=== PATIENT | female | born 1995 | race African-American/Black ===

== ENCOUNTER 2020-05-11 10:04 | Observation (INO) | payer BC, SELFPAY ==
[2020-05-11 10:41] VITALS: BP 110/62; PULSE 86
--- NOTE | 2020-05-15 07:42 | PM.OBTRLD ---
OB - Triage/Final Diagnosis Visit Information Reason for evaluation: decreased movement
== END 2020-05-11 11:00 | disposition home or self-care (01) ==
PROVIDERS: Admitting Provider Obstetrics & Gynecology Gynecology; Visit Provider Obstetrics & Gynecology Gynecology
DX: O36.8120 Decreased fetal movements, second trimester, not applicable or unspecified (principal); Z3A.23 23 weeks gestation of pregnancy
CPT/HCPCS: 59025; G0378; G0379

== ENCOUNTER 2020-06-11 17:30 | Observation (INO) | payer BC, SELFPAY ==
--- NOTE | 2020-06-11 17:28 | PC.NURSE ---
Taken directly to OB for eval. Report to
--- NOTE | 2020-06-11 17:30 | OBADM ---
This patient, Arielle Barlow, admitted to the OB room OB Post 112 for observation. Patient/family oriented to hospital policies and general routines including ID bracelet, bed and alarms, visiting hours, pain management, procedures, bathroom and other care routines, personal items, smoking policy, room service/diet, and visiting hours. Patient/Family are encouraged to report perceived risks to care and to ask questions if they do not understand what they are told or what they should do.
[2020-06-11 17:54] VITALS: BP 115/57; PULSE 87
[2020-06-11 18:00] VITALS: BP 109/63; PULSE 92
[2020-06-11 18:15] VITALS: BP 99/61; PULSE 93
[2020-06-11 19:32] VITALS: BMI 45.3
[2020-06-11 19:35] VITALS: BP 115/57; PULSE 95
--- NOTE | 2020-06-14 11:48 | PM.OBTRLD ---
OB - Triage/Final Diagnosis Final Diagnosis (1) Decreased movement: Code(s): O36.8190 - Decreased movements, unspecified trimester, not applicable or unspecified Status: Acute
== END 2020-06-11 19:05 | disposition home or self-care (01) ==
PROVIDERS: Admitting Provider Obstetrics & Gynecology; PCP Obstetrics & Gynecology; Visit Provider Obstetrics & Gynecology Gynecology
DX: O36.8130 Decreased fetal movements, third trimester, not applicable or unspecified (principal); Z3A.28 28 weeks gestation of pregnancy
CPT/HCPCS: 59025; G0378; G0379

== ENCOUNTER 2020-07-18 09:45 | Observation (INO) | payer BC, SELFPAY ==
[2020-07-18 09:56] VITALS: BP 118/59; PULSE 106
[2020-07-18 10:01] VITALS: BP 112/63; PULSE 105
[2020-07-18 10:16] VITALS: BP 109/63; PULSE 99
[2020-07-18 10:31] VITALS: BP 94/64; PULSE 99
[2020-07-18 10:46] VITALS: BP 109/67; PULSE 94; PULSE 96
--- NOTE | 2020-07-22 11:51 | PM.OBTRLD ---
OB - Triage/Final Diagnosis Final Diagnosis (1) Decreased movement: Code(s): O36.8190 - Decreased movements, unspecified trimester, not applicable or unspecified Status: Acute
== END 2020-07-18 11:17 | disposition home or self-care (01) ==
PROVIDERS: Admitting Provider Obstetrics & Gynecology; PCP Obstetrics & Gynecology; Visit Provider Obstetrics & Gynecology
DX: O36.8130 Decreased fetal movements, third trimester, not applicable or unspecified (principal); Z3A.34 34 weeks gestation of pregnancy
CPT/HCPCS: 59025; G0378; G0379

== ENCOUNTER 2020-07-21 19:57 | Observation (INO) | payer BC, SELFPAY ==
[2020-07-21 20:15] VITALS: TEMP 36.4
[2020-07-21 20:40] VITALS: BMI 46.9
--- NOTE | 2020-07-21 20:46 | OBADM ---
This patient, Arielle Barlow, admitted to the OB room OB Post 117 for observation. Patient/family oriented to hospital policies and general routines including ID bracelet, bed and alarms, visiting hours, pain management, procedures, bathroom and other care routines, personal items, smoking policy, room service/diet, and visiting hours. Patient/Family are encouraged to report perceived risks to care and to ask questions if they do not understand what they are told or what they should do.
--- NOTE | 2020-07-24 16:28 | PM.OBTRLD ---
OB - Triage/Final Diagnosis Final Diagnosis (1) Decreased movement: Code(s): O36.8190 - Decreased movements, unspecified trimester, not applicable or unspecified Status: Acute
== END 2020-07-21 21:15 | disposition home or self-care (01) ==
PROVIDERS: Admitting Provider Obstetrics & Gynecology; PCP Obstetrics & Gynecology; Visit Provider Obstetrics & Gynecology
DX: O36.8190 Decreased fetal movements, unspecified trimester, not applicable or unspecified (principal); Z3A.00 Weeks of gestation of pregnancy not specified
CPT/HCPCS: G0378; G0379

== ENCOUNTER 2020-08-05 12:01 | Outpatient (RCR) | payer BC, SELFPAY ==
[2020-07-30 13:03] VITALS: BP 111/59; PULSE 109
--- NOTE | ~2020-08-05 | US_ITS ---
EXAMINATION: US OB limited w BPP DATE: 08/05/2020 13:12 INDICATION: Decreased movements. Assess amniotic fluid index. TECHNIQUE: Real-time pelvic ultrasound was performed. The interpreting radiologist was not present fo r the study. COMPARISON: None. FINDINGS: There is a single living fetus in vertex presentation. The placenta is fundal. heart rate is 1 39 beats per minute (bpm). Amniotic fluid index measures 7.4 cm which is between 2 and 3 standard dev iations below the mean (2.5th%-5%: 7.0-7.9 cm at 35 weeks estimated gestational age). Biophysical profile performed by the technologist: breathing (30 sec sustained breathing in 30 minutes): 2 out of 2 movement (3 gross body movements in 30 minutes): 2 out of 2 tone (one episode of ohaecsm-lddcniuou-vpmeprf limb movement): 2 out of 2 Amniotic fluid pocket (2 cm): 2 out of 2 Total score: 8 out of 8 IMPRESSION: 1. Single living fetus in vertex presentation with heart rate of 139 bpm. 2. Biophysical profile 8 out of 8. 3. Oligohydramnios with amniotic fluid index of 7.4 cm which is between 2 and 3 standard deviations b elow the mean at 35 weeks estimated gestational age. Correlate clinically for leaking fluids. Reviewed, dictated and finalized at location A. IMPRESSION: 1. Single living fetus in vertex presentation with heart rate of 139 bpm. 2. Biophysical profile 8 out of 8. 3. Oligohydramnios with amniotic fluid index of 7.4 cm which is between 2 and 3 standard deviations below the mean at 35 weeks estimated gestational age. Celi elate clinically for leaking fluids.
== END 2020-08-14 07:45 | disposition home or self-care (01) ==
LOC: ANHOBOP 12:01
PROVIDERS: Visit Provider Obstetrics & Gynecology
DX: O36.8130 Decreased fetal movements, third trimester, not applicable or unspecified (principal); O41.03X0 Oligohydramnios, third trimester, not applicable or unspecified; Z3A.35 35 weeks gestation of pregnancy
CPT/HCPCS: 59025; 76815; 76819

== ENCOUNTER 2020-08-09 18:43 | Observation (INO) | payer BC, SELFPAY ==
[2020-08-09 19:30] VITALS: BMI 47.2
--- NOTE | 2020-08-09 20:15 | OBADM ---
This patient, Arielle Barlow, admitted to the OB room for observation. Patient/family oriented to hospital policies and general routines including ID bracelet, bed and alarms, visiting hours, pain management, procedures, bathroom and other care routines, personal items, smoking policy, room service/diet, and visiting hours. Patient/Family are encouraged to report perceived risks to care and to ask questions if they do not understand what they are told or what they should do.
--- NOTE | 2020-11-13 14:40 | PM.OBTRLD ---
OB - Triage/Final Diagnosis Visit Information Reason for evaluation: threatened labor Comments/Additional reasons for admission: I have assessed the risk for this patient, Arielle Barlow, and determined that she would benefit from observation care.
== END 2020-08-09 20:12 ==
LOC: ANHOBOP 11-13 06:20 → ANHLDR 11-13 08:52
PROVIDERS: Admitting Provider Obstetrics & Gynecology; Visit Provider Obstetrics & Gynecology
DX: O47.03 False labor before 37 completed weeks of gestation, third trimester (principal); Z3A.36 36 weeks gestation of pregnancy
CPT/HCPCS: G0378; G0379

== ENCOUNTER 2020-08-12 12:22 | Inpatient (IN) | payer BC, SELFPAY ==
[2020-08-12] VITALS (11 sets, daily range): BP systolic 100–137; BP diastolic 45–87; PULSE 82–109; RESP 18–20; TEMP 36.5–36.7; BMI 47.3
--- NOTE | 2020-08-12 12:22 | LDADM ---
This patient, Arielle Barlow, was admitted to Labor/Delivery/Recovery 109 on 08/12/20 at 12:22. Plans for labor, pain management and were discussed with patient. Patient/family oriented to hospital policies and general routines including ID bracelet, bed and alarms, visiting hours, pain management, procedures, bathroom and other care routines, personal items, smoking policy, room service/diet and guest tray routines, infant security routines, and visiting hours. Patient/Family are encouraged to report perceived risks to care and to ask questions if they do not understand what they are told or what they should do. See OBIX for further documentation.
[2020-08-12 14:46] LABS: Basophils Percent Auto 0.2 % (0.2-1.2); Eosinophils Absolute Auto 0.1 K/mm3 (0-0.3); Hematocrit 34.8 % (37.0-47.0); Hemoglobin 11.3 g/dL (12.0-15.0); Immature Granulocyte Absolute 0.17 K/mm3 (0.00-0.031); Immature Granulocyte Percent A 1.6 % (0-0.5); Lymphocytes Absolute Auto 1.48 K/mm3 (0.9-3.2); Lymphocytes Percent Auto 14.2 % (18.3-44.2); Mean Corpuscular HGB Conc 32.5 g/dl (32-36); Mean Corpuscular Hemoglobin 30.8 pg (26-34); Mean Corpuscular Volume 94.8 fl (80-100); Mean Platelet Volume 9.6 fl (7.4-10.4); Monocytes Absolute Auto 0.7 K/mm3 (0.1-0.6); Monocytes Percent Auto 6.5 % (2.6-8.5); Neutrophils Percent Auto 76.5 % (45.5-73.1); Platelet Count Result 352 k/mm3 (150-375); Red Blood Count 3.67 M/mm3 (4.2-5.4); Red Cell Distribution Width 12.3 % (11.5-14.5); White Blood Count 10.4 K/mm3 (4.5-10.0)
[2020-08-12] MEDS: DINOPROSTONE 10 MG VAG INSERT VAGINAL (14:51)
--- NOTE | 2020-08-12 17:34 | WPDANESEPP ---
Anes - Eval Pre Procedure Procedure: Labor epidural Date/Time: 08/12/20 17:34 Surgeon: Mulu Vaca Preop Diagnosis: pain during labor Pre Op Diagnosis: INDUCTION Patient Data Age: 24 Gender: F Height: 1.63 m Weight: 125.2 kg Last Vital Signs Pulse 103 H 08/12/20 16:31 BP 137/87 08/12/20 16:31 Allergies Allergy/AdvReac Type Severity Reaction Status Date / Time cephalexin Allergy Unknown hives Verified 08/12/20 14:50 Home Medications Medication Instructions Recorded Confirmed Type [id number] fum-folic ac-om3 1 pkg PO DAILY 08/12/20 08/12/20 History [Daily ] Laboratory Tests 08/12/20 08/12/20 08/12/20 14:39 14:39 14:39 WBC 10.4 K/mm3 H K/mm3 (4.5-10.0) RBC 3.67 M/mm3 L M/mm3 (4.2-5.4) Hgb 11.3 g/dL L g/dL (12.0-15.0) Hct 34.8 % L % (37.0-47.0) MCV 94.8 fl fl (80-100) MCH 30.8 pg pg (26-34) MCHC 32.5 g/dl g/dl (32-36) RDW 12.3 % % (11.5-14.5) Plt Count 352 k/mm3 k/mm3 (150-375) MPV 9.6 fl fl (7.4-10.4) Immature Gran % (Auto) 1.6 % H % (0-0.5) Neut % (Auto) 76.5 % H % (45.5-73.1) Lymph % (Auto) 14.2 % L % (18.3-44.2) [place] % (Auto) 6.5 % % (2.6-8.5) Eos % (Auto) 1.0 % % (0-4.4) Baso % (Auto) 0.2 % % (0.2-1.2) Lymph # (Auto) 1.48 K/mm3 K/mm3 (0.9-3.2) [place] # (Auto) 0.7 K/mm3 H K/mm3 (0.1-0.6) Eos # (Auto) 0.1 K/mm3 K/mm3 (0-0.3) Baso # (Auto) 0.0 K/mm3 K/mm3 (0.0-0.1) Abs Immat Gran (auto) 0.17 K/mm3 H K/mm3 (0.00-0.031) Absolute Neuts (auto) 8.0 K/mm3 H K/mm3 (1.3-6.7) Absolute Nucleated RBC 0.0 K/mm3 K/mm3 (0.0-0.012) Nucleated RBC % 0.0 % % (0.0-0.2) RPR Pending Blood Type O Positive Antibody Screen Negative Patient hx anesthesia problems: none Family hx anesthesia problems: none PMFSH Past Medical History Medical History (Updated 08/12/20 @ 17:35 by Vicky Riley CRNA) Decreased movement Morbid obesity with BMI of 45.0-49.9, adult Social History Social History Smoking status: Never smoker Substance use: former Gender identity (if verbalized by the patient): Female Spiritual care concerns: No Exam Day of Procedure 08/12/20 17:34
--- NOTE | 2020-08-12 19:33 | PM.IMHP ---
H&P: HPI History of Present Illness Date/Time: 08/12/20 19:33 Chief complaint: INDUCTION Narrative: Arielle Barlow is a 24 yo @ 36.6wks who presented for routine testing due to obesity and h/o decreased movement. Last week, she was noted to have low-normal fluid at 7, ROM was ruled out. Today for ANT, she was noted to have recurrent late decels with episodes of minimal variability; with resuscitation, accels and variability were noted. is complicated by: - Obesity - Late MANUEL @ 34.6wks (but had regular care before (moved to [place])) - MJ use - heart decels - Low normal amniotic fluid Review of Systems Constitutional: Constitutional: Denies chills and Denies fever(s) Eyes: Eyes: Denies blurry vision Cardiovascular: Cardiovascular: Denies chest pain and Denies rapid heart rate Respiratory: Respiratory: Denies cough and Denies dyspnea Gastrointestinal: Gastrointestinal: Denies abdominal pain, Denies nausea and Denies vomiting Genitourinary: Genitourinary: Denies vaginal discharge Musculoskeletal: Musculoskeletal: Reports back pain Neurologic: Denies dizziness and Denies headache(s) Psychiatric: Psychiatric: Denies anxiety and Denies depression [facility] Past Medical History Medical History Decreased movement Morbid obesity with BMI of 45.0-49.9, adult Social History Social History Smoking status: Never smoker Substance use: former Gender identity (if verbalized by the patient): Female Spiritual care concerns: No Meds Home Medications and Allergies Home Medications Medication Instructions Recorded Confirmed Type -qdgh fum-folic ac-om3 1 pkg PO DAILY 08/12/20 08/12/20 History [Daily ] Allergies Allergy/AdvReac Type Severity Reaction Status Date / Time cephalexin Allergy Unknown hives Verified 08/12/20 14:50 Vital Signs Vital Signs - 24 hr 08/12/20 15:14 08/12/20 15:16 08/12/20 15:31 Temperature Pulse Rate 105 H 95 94 Blood Pressure 127/68 100/64 109/45 L 08/12/20 15:46 08/12/20 16:00 08/12/20 16:01 Temperature 36.6 C Pulse Rate 95 98 Blood Pressure 101/54 L 119/74 08/12/20 16:16 08/12/20 16:31 Temperature Pulse Rate 109 H 103 H Blood Pressure 121/70 137/87 Exam Const: General: cooperative, comfortable and no acute distress Nutritional Appearance: obese Resp: Effort & Inspection: normal respiratory effort and able to speak in complete sentences Cardio: Rate: regular rate GI: GI Palp: No abdominal tenderness : Other: FHT's: 145/ mod kristy/ + accels/ occasional late decel ---> now resolved with intrauterine resuscitation - cat 2 TOCO: irregular ctx's q6min Cervix: 1/thick/high Membranes: intact Position: cephalic Skin: General skin exam: normal color Neuro: General: patient oriented x3 Extrem: General: normal to inspection Psych: Appearance: grossly normal Attitude: cooperative H&P: Results Labs Labs: Short CBC 08/12/20 Range/Units 14:39 WBC 10.4 H (4.5-10.0) K/mm3 Hgb 11.3 L (12.0-15.0) g/dL Hct 34.8 L (37.0-47.0) % Plt Count 352 (150-375) k/mm3 Assessment and Plan Assessment and plan (1) heart deceleration: Status: Acute (2) IUP (intrauterine ), incidental: Code(s): Z33.1 - state, incidental Status: Acute (3) Morbid obesity with BMI of 45.0-49.9, adult: Code(s): E66.01 - Morbid (severe) obesity due to excess calories; Z68.42 - Body mass index [BMI] 45.0-49.9, adult Status: Acute Additional Plan - Admit to L&D for IOL - Cervidil overnight - Plan for AROM + pitocin in AM - Continuous monitoring - Anesthesia consult PRN pain
--- NOTE | 2020-08-12 19:44 | WPDHPUPDATE1 ---
History and Physical Update Update Date/Time: 08/12/20 19:44 History and Physical has been reviewed, including an updated exam of the patient. There are NO changes in the patient's condition. Risks, benefits, and alternatives have been discussed and questions answered. Patient agrees to proceed with procedure.
[2020-08-13] VITALS (264 sets, daily range): BP systolic 54–149; BP diastolic 17–118; PULSE 65–164; RESP 16–20; TEMP 35.8–37.2; O2SAT 36–100
[2020-08-13] MEDS: OXYTOCIN 30 UNITS/NS 500 ML 30 UNITS/500 ML BAG IV CONT (03:13)
[2020-08-13] MEDS: LACTATED RINGERS 1,000 ML 125 ML IV CONT ×3 (03:13→11:48)
[2020-08-13] MEDS: fentaNYL CITRATE INJ (*CRX) 100 MCG/2 ML VIAL IV PUSH ×2 (05:09→07:09)
[2020-08-13 06:57] LABS: Rapid Plasma Reagin Non-Reactive (NonReactive)
--- NOTE | 2020-08-13 08:00 | PM.OBPNLAB ---
Pain Control Date/time seen: 08/13/20 12:10 Pain control: tolerating well Pelvic Exam Dilation (cm): 2 Effacement (%): 80 station: -2 Amniotic membrane status: Ruptured (AROM, clear 0745) Contractions Monitor mode: Internal Contraction frequency: 3 Contraction pattern: Regular Status status: Category l Assessment and Plan Pitocin rate (mU/min): 6 Assessment: induction ongoing Plan: continuous present management
--- NOTE | 2020-08-13 21:07 | PM.OBPRVD ---
OB - Delivery Note Procedure Route of delivery: Laceration Description: Perineal - 2nd Degree Delivery repair: chromic Specimen: Yes Estimated blood loss (mL): 300 Anesthesia type: Epidural Disposition: floor Narrative: Patient was prepped and draped in usual manner for this procedure. Maternal expulsive efforts readily delivered vertex which with further effort the rest of the baby was delivered as well. Cord was clamped and cut and placenta delivered spontaneously. Uterus was well contracted cervix vagina and vulva were inspected with second-degree laceration noted. This was approximated using 2 0 chromic in a running interlocking manner to approximate the vaginal tissue as well as the deep tissue and the subcuticular layer to approximate the skin edges. At this point the procedure was complete and the immediate postoperative condition of mother and baby were both excellent. [place] Baby Weeks of gestation at delivery: 37 gender: Male Weight (pounds): 6 Weight (ounces): 13 score one minute: 8 score five minutes: 9
[2020-08-13] MEDS: OXYTOCIN 30 UNITS/NS 500 ML 30 UNITS/500 ML BAG 125 UNITS IV CONT ×2 (21:35→21:51)
[2020-08-13] MEDS: IBUPROFEN 600 MG TABLET PO (22:48)
[2020-08-13] MEDS: WITCH HAZEL 40 PADS 1 PAD TOPICAL (22:49)
[2020-08-13] MEDS: BENZOCAINE 20% AER SPR (*SP) 56 GM CAN 1 SPRAY TOPICAL (22:49)
[2020-08-14 05:45] LABS: Hematocrit 28.2 % (37.0-47.0)
[2020-08-14 07:40] VITALS: BP 106/57; PULSE 94; RESP 18; TEMP 36.6; O2SAT 96
--- NOTE | 2020-08-14 07:45 | PC.NURSE ---
Mother called out for assist with feeding . Consulted with patient, mother reports infant is sleepy and is having difficulties with latching. is inconsistent with eagerness and latching, some feedings infant will be easily awoken and latch other feedings mother struggles to get to latch. Mother has been given a nipple shield for feedings. Discussed nipple shield use and how this may assist with latch/infant feeding. Instructions given on application and cleaning of shield. Discussed nipple shield precautions and possible complications. Patient able to return demonstration on proper application of shield. Discussed the need to initiate pumping if infant continues to nurse with the shield. Patient verbalizes understanding. Reviewed feeding cues, frequencies, duration of feedings, feeding elimination flow sheet, and signs of adequate intake. Demonstrated stimulation techniques to wake infant for feeding. Assisted with to breast. Reviewed positioning/alignment in cross cradle, holding breast in U hold and guided asymmetrical latch on. Discussed the rational for each. was able to latch correctly. Infant held nipple in with no effective suckling noted. Discussed feeding options at this time. has not nursed for 6 hours. Parents would like infant to be supplemented and mother will initiate pumping. Feeding plan will be to attempt infant to breast each feeding, if does not effectively feed, mother will supplement 15mls then pump both breasts for 10-15 minutes.
--- NOTE | 2020-08-14 08:30 | PC.NURSE ---
Breast pump provided due to ineffective feeding/nipple shield use. Instructions given on breast pump care and usage, pumping schedule, nipple care, and collection and storage of breast milk. Encouraged [id number], breast massage and manual expression to stimulate supply. Assessed patient for correct flange size, placement and draw. Patient verbalizes and demonstrates understanding of instructions.
--- NOTE | 2020-08-14 09:07 | P.DS_ITS ---
DS: Admitting Diagnosis Admitting Diagnosis Admitting Diagnosis: INDUCTION OB - DS: Summary OB Procedures : None OB Procedures Intrapartum: Spontaneous Vag Delivery OB Procedures: : None Time Spent with Patient Time attestation: Total time spent providing and/or coordinating discharge services: DS: Data Data Completed and Pending Pending studies at discharge: Pending at discharge 08/13/20 20:55 Surgical [PTH] Routine Labs on day of discharge: Labs from last 24 hours 08/14/20 04:03 Hgb 9.0 L Hct 28.2 L Discharge Plan Discharge Discharging Clinician: Frederic Cardona Anticipated Discharge Date/Time: 08/15/20 09:07 Patient Disposition: Home, Self-Care Activity: as tolerated Diet: as tolerated Patient Instructions: Antibiotic Form Stand Alone Forms: General Discharge Information Follow-up/Referrals: Frederic Cardona MD [Physician] - 3 Weeks Discharge Medications: Continued Daily [id number] mg-mcg-mg Combo Pack 1 pkg PO DAILY RF: 0 Date of admission: 08/12/20 12:22 Primary Care Provider: PHYSICIAN,LEAD CLINICAL RESEARCH COORDINATOR Admitting Provider: Mulu Vaca Attending physician on admission: Mulu Vaca Condition: Stable
[2020-08-14] MEDS: POLYSACCHARIDE IRON COMPLEX 150 MG CAPSULE PO ×2 (09:57→16:00)
[2020-08-14] MEDS: MULTIVIT/MIN/PREN/FOL AC/IRON TABLET 1 TAB PO (09:57)
[2020-08-14] MEDS: IBUPROFEN 600 MG TABLET PO ×2 (09:57→16:00)
[2020-08-14] MEDS: DOCUSATE SODIUM 100 MG CAPSULE PO ×2 (09:57→16:00)
--- NOTE | 2020-08-14 11:24 | WPDANLDPN2 ---
Anes-Prog Note L&D Date/Time: 08/14/20 11:24 Comfortable throughout: labor and delivery Neuraxial method: epidural Epidural/Spinal procedure site: clean & non-tender Neuro status: Neuro function grossly intact. Cardiovascular status: normal Respiratory status: normal Airway patency: baseline Mental status: baseline Post-Op hydration status: normal Vital Signs: Last Vital Signs Temp 97.9 F 08/14/20 07:40 Pulse 94 08/14/20 07:40 Resp 18 08/14/20 07:40 BP 106/57 L 08/14/20 07:40 Pulse Ox 96 08/14/20 07:40 Pain score (VAS): 10/26 I/O: Intake & Output 08/13/20 08/14/20 08/14/20 23:59 07:59 15:59 Intake Total 900 Output Total 291 Balance 609 Patient feedback: Patient satisfied with anesthetic care.
--- NOTE | 2020-08-14 12:30 | PC.NURSE ---
Mother called out for assist with feeding infant. Reviewed infant feeding cues, frequencies, duration of feedings, feeding elimination flow sheet, and signs of adequate intake. Demonstrated stimulation techniques to wake for feeding. Assisted with to breast. Reviewed positioning/alignment in cross cradle, holding breast in U hold and guided asymmetrical latch on. Discussed the rational for each. was able to latch correctly. Infant held nipple in with no effective suckling noted. Attempt for 15-20 minutes, infant will then supplement.
[2020-08-14 20:00] VITALS: BP 118/78; PULSE 108; RESP 18; TEMP 36.7; O2SAT 96
[2020-08-15 07:45] VITALS: BP 116/69; PULSE 87; RESP 18; TEMP 37.2; O2SAT 100
--- NOTE | 2020-08-15 09:20 | PC.NURSE ---
Consult with pt., mother states infant has been more awake and eagerly feeding the last several feedings, continuing to use the nipple shield. Discussed weaning techniques for shield. Reviewed ICP suggestions of continued supplementation until her milk is in, due to near term status. Parents are willing to supplement as needed. Observed mother is able to independently latch infant with appropriate positioning/alignment using nipple shield. She denies any nipple discomfort, is feeding as required and waking to feed if needed. has had at least 8 feedings in the past 24 hours followed with supplementation for most. Infant is currently meeting outcomes for weight, output, jaundice and feeding frequencies. Mother states she feels confident to continue current feeding plan at home. Reviewed transition to breast milk, signs of adequate intake, and engorgement/relief. Instructed to call ICP if intake/output less than required. Discussed when to increase supplementation and when to decrease/discontinue supplementation. Advised not to discontinue supplement until seen by her ICP. Reviewed regular medications mother is taking. Information provided per Jaqui. Reviewed community resources on the [facility] website and in the Mom/Baby guide. Information on outpatient services provided. Mother has no further questions at this time.
[2020-08-15] MEDS: POLYSACCHARIDE IRON COMPLEX 150 MG CAPSULE PO (10:23)
[2020-08-15] MEDS: DOCUSATE SODIUM 100 MG CAPSULE PO (10:23)
[2020-08-15] MEDS: MULTIVIT/MIN/PREN/FOL AC/IRON TABLET 1 TAB PO (10:23)
--- NOTE | 2020-08-15 11:40 | PC.NURSE ---
Patient instructed to view the discharge video Mother & Baby Care, The First Two Weeks . Patient was given the opportunity and encouraged to ask questions. Patient verbalized understanding of information shared and has been given the mother/baby guide for home reference.
--- NOTE | 2020-08-18 16:42 | PM.OBDSVD ---
DS: Admitting Diagnosis Admitting Diagnosis Admitting Diagnosis: INDUCTION OB - DS: Summary OB Procedures : None OB Procedures Intrapartum: Spontaneous Vag Delivery OB Procedures: : None Time Spent with Patient Time attestation: Total time spent providing and/or coordinating discharge services: DS: Data Data Completed and Pending Completed studies during hospitalization: Pending at discharge 08/13/20 20:55 Surgical [PTH] Routine Discharge Plan Discharge Discharging Clinician: Frederic Cardona Anticipated Discharge Date/Time: 08/15/20 09:07 Patient Disposition: Home, Self-Care Activity: as tolerated Diet: as tolerated Discharge Instructions: Education: Mom and Baby Guide and Preeclampsia Handout Given to: Mother Follow-Up: Call your delivering provider's office for an appointment to be seen in: 3 weeks Mom and baby should come to the [facility] for the follow-up appointment. Appointment Date/Time: August 16, 2020 at 8:00 am What to expect at your follow-up visit: Physical Assessment Call [phone] if you are unable to keep your appointment time. BREAST CARE: * Wear a snug supportive bra. * For engorgement discomfort: Breast Feeding: * Apply warm moist washcloths * Express milk as needed to relieve engorgement * Wear loose clothing * For sore nipples: * Identify correct latch-on * Apply warm moist washcloths before and after nursing * Air dry nipples after nursing * May apply Lansinoh cream to nipples EPISIOTOMY/PERINEAL CARE: * Until bleeding stops, use your dari bottle after urinating * Change your pad frequently throughout the day * You may take sitz baths several times a day (fill your bathtub with warm water and soak for 20 minutes.) Do NOT bathe in the water * No tub baths until seen by your physician - You may shower ACTIVITY: * Rest as much as possible. * Do not exercise or lift anything heavier than your baby (such as laundry or other children.) * Avoid stairs or driving as much as possible. * Do not put anything into the vagina. No douching, tampons, or sexual activity until seen by physician. NOTIFY PHYSICIAN IF YOU HAVE ANY QUESTIONS OR IF ANY OF THE FOLLOWING SYMPTOMS OCCUR: * If your episiotomy or stitches becomes red, swollen, or more painful than what you have experienced in the hospital. * If your vaginal bleeding becomes foul smelling. * If your vaginal bleeding becomes more heavy than a period or if your bleeding changes from pink to bright red. However, you may pass an occasional walnut-sized clot once or twice for the first week . * If you experience a sharp, shooting pain in you calves. * If you discover a hard, reddened area on your breast or if you experience flu-like symptoms. DIET: * Eat regular, well-balanced meals. * Drink plenty of fluids daily. If , drink to thirst. Stand Alone Forms: General Discharge Information Follow-up/Referrals: Frederic Cardona MD [Physician] - 3 Weeks Discharge Medications: Continued Daily [id number] mg-mcg-mg Combo Pack 1 pkg PO DAILY RF: 0 Date of admission: 08/12/20 12:22 Primary Care Provider: PHYSICIAN,PROFESSOR OF PRACTICE Admitting Provider: Mulu Vaca Attending physician on admission: Frederic Cardona Condition: Stable
== END 2020-08-15 12:15 | disposition home or self-care (01) | DRG 560 ==
LOC: ANHLDR 14:10 → ANHOB2 08-14 09:08 → ANHLDR 08-18 11:17 → ANHOB2 08-18 11:17
PROVIDERS: Admitting Provider Obstetrics & Gynecology; Visit Provider Obstetrics & Gynecology
DX: O36.8330 Maternal care for abnormalities of the fetal heart rate or rhythm, third trimester, not applicable or unspecified (principal); Z37.0 Single live birth; Z3A.37 37 weeks gestation of pregnancy; O99.214 Obesity complicating childbirth; E66.01 Morbid (severe) obesity due to excess calories; O70.1 Second degree perineal laceration during delivery; Z23 Encounter for immunization
CPT/HCPCS: 36415; 85014; 85018; 85025; 86592; 86850; 86900; 86901; 88307; 90471; 90653; A9270; G0008; J2590; J2795; J3010; J7120

== ENCOUNTER 2020-09-25 15:19 | Emergency (ER) | payer BC, SELFPAY ==
[2020-09-25 15:24] VITALS: BP 133/64; PULSE 79; RESP 18; TEMP 36.4; O2SAT 99
--- NOTE | 2020-09-25 16:15 | ED.GENADULT ---
HPI - General Adult General Chief complaint: Unspecified Stated complaint: sore throat Time Seen by Provider: 09/25/20 15:35 Source: patient Mode of arrival: ambulatory Limitations: no limitations History of Present Illness HPI narrative: Patient is a 24-year-old female who presents to emergency department for evaluation of sore throat congestion for the last day noting that someone at her work was positive for strep patient denies other URI symptoms specifically no chest pain shortness of breath vomiting diarrhea patient has not taken anything for her symptoms presents in no distress afebrile Related Data Home Medications Medication Instructions Recorded Confirmed Daily 1 pkg PO DAILY 08/12/20 08/12/20 Allergies Allergy/AdvReac Type Severity Reaction Status Date / Time cephalexin Allergy Unknown hives Verified 08/12/20 14:50 Review of Systems Review of Systems: All systems reviewed & are unremarkable except as noted in HPI and below PMFSH Past Medical History Medical History Decreased movement Morbid obesity with BMI of 45.0-49.9, adult Social History Social History Smoking status: Never smoker Substance use: former Gender identity (if verbalized by the patient): Female Spiritual care concerns: No Exam Narrative: Exam Narrative: GENERAL: Well-appearing, obese, and in no acute distress. HEAD: Normocephalic, atraumatic. EYES: PERRLA and EOMI. ENT: Nares clear, no rhinorrhea or epistaxis. Mucous membranes moist. Oropharynx without tonsillar hypertrophy exudate or other lesions. CHEST: Clear to auscultation. No respiratory distress. No wheezes rales or rhonchi HEART: Regular rate and rhythm. No murmur heard. SKIN: Warm, dry, no rash. NEURO: No focal deficits. Alert and oriented x3. PSYCH: Normal mood and affect. Course Course Emergency Course: Patient in the room with negative strep pharyngitis will be swabbed for COVID-19 was made aware that she will have to get the results through the on-call primary care she does not have a existing primary care patient notes that she will facilitate doing this also advised to self quarantine until she has received her results and given reasons to return Vital Signs Vital signs: Vital Signs Temperature 97.6 F 09/25/20 15:24 Pulse Rate 79 09/25/20 15:24 Respiratory Rate 18 09/25/20 15:24 Blood Pressure 133/64 09/25/20 15:24 Pulse Oximetry 99 09/25/20 15:24 Temperature 97.6 F 09/25/20 15:24 Pulse Rate 79 09/25/20 15:24 Respiratory Rate 18 09/25/20 15:24 Blood Pressure 133/64 09/25/20 15:24 Pulse Oximetry 99 09/25/20 15:24 Medical Decision Making MDM Narrative Medical decision making narrative: Patient in the room afebrile nontoxic-appearing no distress felt appropriate for outpatient reevaluation Vital Signs Vital Signs: Vital Signs Temperature 97.6 F 09/25/20 15:24 Pulse Rate 79 09/25/20 15:24 Respiratory Rate 18 09/25/20 15:24 Blood Pressure 133/64 09/25/20 15:24 Pulse Oximetry 99 09/25/20 15:24 Temperature 97.6 F 09/25/20 15:24 Pulse Rate 79 09/25/20 15:24 Respiratory Rate 18 09/25/20 15:24 Blood Pressure 133/64 09/25/20 15:24 Pulse Oximetry 99 09/25/20 15:24 Lab Data Labs: Strep Screen Presumptive Negative *(Reference Range: Negative)* Discharge Plan Discharge Clinical Impression: Acute upper respiratory infection Patient Disposition: Home, Self-Care Condition: Stable Instructions: Antibiotic Form, Pharyngitis (ED) Additional Instructions: Follow up with your primary care provider within 2 to 3 days to set up for reevaluation and to obtain your COVID-19 results. Go to ER for shortness of breath, difficulty breathing, chest pain, fever/chills, weakness, nauseau/vomitting, e
[2020-09-26 12:14] LABS: SARS-CoV-2 RNA PCR Negative
== END 2020-09-25 17:19 | disposition home or self-care (01) ==
PROVIDERS: Emergency Medicine Emergency Medical Services; Emergency Provider Emergency Medicine
DX: J06.9 Acute upper respiratory infection, unspecified (principal); Z20.828 Contact with and (suspected) exposure to other viral communicable diseases; E66.01 Morbid (severe) obesity due to excess calories; Z68.42 Body mass index [BMI] 45.0-49.9, adult
CPT/HCPCS: 87081; 87635; 87880; 99283; C9803; U0003

== ENCOUNTER 2020-11-02 15:21 | Emergency (ER) | payer BC, SELFPAY ==
[2020-11-02 15:50] VITALS: BP 99/53; PULSE 98; RESP 20; TEMP 36.5; O2SAT 100
--- NOTE | 2020-11-02 16:05 | ED.SKABFB ---
HPI - Skin/Abscess/Foreign Bdy General Chief complaint: Wound/Laceration Stated complaint: L sided boil on gluteal region Time Seen by Provider: 11/02/20 15:55 Source: patient Mode of arrival: ambulatory Limitations: no limitations History of Present Illness HPI narrative: This is a 25-year-old female that presents the emergency department for abscess to the buttock. Reports she noted pain in the area over the last 5 days. Reports she noticed some redness and swelling of the area. Does report history of abscess in this area. Denies fever or drainage. Related Data Home Medications Medication Instructions Recorded Confirmed Daily 1 pkg PO DAILY 08/12/20 08/12/20 Allergies Allergy/AdvReac Type Severity Reaction Status Date / Time cephalexin Allergy Unknown hives Verified 11/02/20 16:21 Review of Systems Review of Systems: Narrative: CONSTITUTIONAL: Denies fever SKIN: Reports abscess All systems reviewed & are unremarkable except as noted in HPI and below PMFSH Past Medical History Medical History Decreased movement Morbid obesity with BMI of 45.0-49.9, adult Social History Social History Smoking status: Never smoker Substance use: former Gender identity (if verbalized by the patient): Female Spiritual care concerns: No Exam Narrative: Exam Narrative: GENERAL: Well-appearing, well-nourished, and in no acute distress. HEAD: Normocephalic, atraumatic. EYES: EOMI. BACK: 6cm area of erythema and induration present on the left upper buttock EXTREMITIES: Normal range of motion. No edema. SKIN: Warm, dry, no rash. NEURO: No focal deficits. Alert and oriented x3. PSYCH: Normal mood and affect Course Vital Signs Vital signs: Vital Signs Temperature 97.7 F 11/02/20 15:50 Pulse Rate 98 11/02/20 15:50 Respiratory Rate 11/02/20 15:50 Blood Pressure 99/53 L 11/02/20 15:50 Pulse Oximetry 100 11/02/20 15:50 Temperature 97.7 F 11/02/20 15:50 Pulse Rate 98 11/02/20 15:50 Respiratory Rate 11/02/20 15:50 Blood Pressure 99/53 L 11/02/20 15:50 Pulse Oximetry 100 11/02/20 15:50 Procedures Abscess I/D other: Date of Incision: 11/02/20 Time of Incision: 18:15 Local Anesthetic: lidocaine 1% and with epi Amount of anesthesia used (mL): 4 Technique: incised with #11 blade Irrigation: Yes Packing used?: iodoform I&D Results: Pus and Blood MDM - Skin/Abscess/Foreign Bdy MDM Narrative Medical decision making narrative: Patient presents the emergency department for pilonidal abscess. Successfully drained. Patient will be started on oral antibiotics. She is to follow-up with primary care doctor. She was given warnings to return to the ER Critical Care Time Critical Care Time Critical Care Time: No Discharge Plan Discharge Clinical Impression: Pilonidal abscess Patient Disposition: Home, Self-Care Condition: Stable Instructions: Antibiotic Form, Abscess (ED) Additional Instructions: Return if symptoms worsen or concerns: any increase in redness, swelling, pain, or fever over 101 Take antibiotics as directed. Clean wound with mild soapy water. Apply antibiotic ointment and clean dressing at least three times daily. Warm compresses 3 times a day for 30 minutes each Follow up with primary care in the next 2-3 days for re-evaluation and packing removal Prescriptions: New sulfamethoxazole-trimethoprim 800-160 mg tablet 1 tablet PO Q12H 10 Days Qty: 20 RF: 0 No Action Daily [phone] mg-mcg-mg Combo Pack 1 pkg PO DAILY RF: 0 Follow-up/Referrals: Jay Santa MD [Physician] - 3 Days PHYSICIAN,FIRE INFORMATION OFFICER [Primary Care Provider] -
[2020-11-02 18:35] VITALS: BP 115/60; PULSE 90; RESP 20; O2SAT 99
== END 2020-11-02 18:36 | disposition home or self-care (01) ==
PROVIDERS: Emergency Provider Emergency Medicine
DX: L05.01 Pilonidal cyst with abscess (principal); E66.01 Morbid (severe) obesity due to excess calories; Z68.36 Body mass index [BMI] 36.0-36.9, adult
CPT/HCPCS: 10061; 10080; 99283

== ENCOUNTER 2021-03-02 07:25 | Emergency (ER) | payer BC, SELFPAY ==
--- NOTE | ~2021-03-02 | XR_ITS ---
EXAMINATION: XR chest 1V portable EXAM DATE: 03/02/2021 08:17 INDICATION: Cough. TECHNIQUE: Portable AP frontal chest x-ray was obtained. There is no prior study for comparison. FINDINGS: The lungs are clear. There are no pleural effusions. The cardiomediastinal silhouette is within normal limits. There is no pneumothorax suspected. The bones and soft tissues are unremarkab le. IMPRESSION: No acute cardiopulmonary findings. Reviewed, dictated and finalized at location A.
[2021-03-02 07:29] VITALS: BP 131/75; PULSE 77; RESP 17; TEMP 36.6; O2SAT 100
--- NOTE | 2021-03-02 07:55 | ED.URI ---
HPI - URI/Sore Throat General Chief Complaint: Upper Respiratory Infection Stated Complaint: sore throat x2 days Time Seen by Provider: 03/02/21 07:35 Source: RN notes reviewed History of Present Illness HPI Narrative: Patient presents to emergency department from home for respiratory infection. Patient states symptoms began yesterday with a sore throat and today developed a cough productive of green sputum and ear pressure she denies any fevers or chills chest pain, shortness of breath abdominal pain nausea vomiting or any other symptoms. She denies any loss of taste or smell denies any known contact with Covid positive patient states she took no medication for the symptoms Related Data Allergies Allergy/AdvReac Type Severity Reaction Status Date / Time cephalexin Allergy Unknown hives Verified 03/02/21 07:33 Review of Systems Review of Systems: Narrative: Gen.: Denies fevers or chills Eyes: Denies eye pain or visual change ENT: See HPI Respiratory: Denies shortness of breath reports cough CV: Denies chest pain or palpitations GI: Denies abdominal pain nausea, emesis or diarrhea denies chance of Musculoskeletal: Denies back pain or muscle pain Neuro: Denies numbness, tingling, weakness or focal weakness Skin: Denies rash Except as documented, all other systems reviewed and negative PENDING SALE TO [facility] Past Medical History Medical History Decreased movement Morbid obesity with BMI of 45.0-49.9, adult Social History Social History (Updated 03/02/21 @ 07:56 by Olaf Bhatti DO) Smoking status: Current every day smoker Substance use: former Gender identity (if verbalized by the patient): Female Spiritual care concerns: No Exam Narrative: Exam Narrative: APPEARANCE: No acute distress, nontoxic, resting in bed EYES: EOMI HEENT: Normocephalic, atraumatic, TMs clear bilaterally nares patent oral mucosa moist, mild erythema of the posterior pharynx bilateral tonsils, no exudate, uvula midline no trismus tolerating own secretions RESPIRATORY: No respiratory distress Clear to auscultation bilaterally with no rhonchi wheezing or rales. CARDIOVASCULAR: Regular rate and rhythm without murmurs rubs or gallops. ABDOMINAL: Soft, nontender, nondistended, no rebound or guarding MUSCULOSKELETAl: Moves all extremities. NEURO: Awake and alert. Following commands, speech normal, no focal deficits SKIN:: Warm, dry. No rashes lesions or abrasions PSYCHIATRIC: Normal affect/mood, Course Course Emergency Course: Discussed with patient results of workup and diagnosis. Discussed need for follow-up with primary care, proper use of medication, and reasons to return to the emergency department. Patient understands and agrees to current treatment plan Vital Signs Vital signs: Vital Signs Temperature 97.9 F 03/02/21 07:29 Pulse Rate 77 03/02/21 07:29 Respiratory Rate 17 03/02/21 07:29 Blood Pressure 131/75 03/02/21 07:29 Pulse Oximetry 100 03/02/21 07:29 Temperature 97.9 F 03/02/21 07:29 Pulse Rate 77 03/02/21 07:29 Respiratory Rate 17 03/02/21 07:29 Blood Pressure 131/75 03/02/21 07:29 Pulse Oximetry 100 03/02/21 07:29 MDM - URI/Sore Throat MDM Narrative Medical decision making narrative: Patient with upper respiratory infection feel likely viral versus allergy with Covid pandemic will test for Covid self-isolation Lab Data Labs: Strep Screen Presumptive Negative *(Reference Range: Negative)* Imaging Data Radiologist's impression: ITS Impressions Chest X-Ray 03/02/21 08:40 IMPRESSION: No acute cardiopulmonary findings. Discharge Plan Discharge Clinical Impression: Acute upper respiratory infection Patient Disposition: Home, Self-Care Condition: Stable Instructions: Antibiotic Form, Upper Respiratory Infection (ED) Additional Inst
[2021-03-02] MEDS: IBUPROFEN 600 MG TABLET PO (08:02)
[2021-03-02 09:07] VITALS: BP 127/62; PULSE 78; RESP 19; O2SAT 100
[2021-03-02 18:48] LABS: SARS-CoV-2 RNA PCR Negative
== END 2021-03-02 09:10 | disposition home or self-care (01) ==
PROVIDERS: Emergency Provider Emergency Medicine
DX: J02.9 Acute pharyngitis, unspecified (principal); Z20.822 Contact with and (suspected) exposure to COVID-19; F17.200 Nicotine dependence, unspecified, uncomplicated; E66.01 Morbid (severe) obesity due to excess calories; Z68.42 Body mass index [BMI] 45.0-49.9, adult
CPT/HCPCS: 71045; 87081; 87880; 99283; A9270; C9803; U0003; U0005

== ENCOUNTER 2021-03-23 15:38 | Emergency (ER) | payer BC, SELFPAY ==
[2021-03-23 16:22] VITALS: BP 112/47; PULSE 91; RESP 20; TEMP 36.8; O2SAT 100
--- NOTE | 2021-03-23 18:59 | PC.NURSE ---
Had piloidal cyst drained 3 to 4 months ago, had medicated packed gauze, now past three days have been excruciating . States was going to have surgery for removal when she was in fifth grade but it popped before I could get to surgery . Reports chills yesterday, currently afebrile, took Motrin this am
--- NOTE | 2021-03-23 19:52 | ED.GENADULT ---
HPI - General Adult General Chief complaint: Unspecified Stated complaint: cyst on tailbone Time Seen by Provider: 03/23/21 19:03 Source: patient Mode of arrival: ambulatory Limitations: no limitations History of Present Illness HPI narrative: Patient is a 25-year-old female who presents complaining of abscess to buttocks. She reports a history of pilonidal abscesses in the past. She reports she has had a few in the past 3-4 years. She reports increasing pain over left buttocks for the past 2 to 3 days. Reports difficulty sitting related to pain. She denies taking OTC medications for pain. Denies drainage. She denies fever, chills, body aches or all other complaints at this time. MD complaint: Pilonidal abscess Related Data Allergies Allergy/AdvReac Type Severity Reaction Status Date / Time cephalexin Allergy Unknown hives Verified 03/23/21 19:02 Review of Systems Review of Systems: Narrative: CONSTITUTIONAL: Denies fever, chills, or sweats. EYES: Denies visual changes, redness, or discharge. ENT: Denies rhinorrhea, congestion, sore throat, or otalgia. CARDIOVASCULAR: Denies chest pain, palpitations, or edema. RESPIRATORY: Denies cough or dyspnea. GASTROINTESTINAL: Denies abdominal pain, nausea, vomiting, or diarrhea. GENITOURINARY: Denies dysuria or hematuria. SKIN: Reports abscess to buttocks MUSCULOSKELETAL: Denies back pain, joint pain, or myalgia. NEUROLOGIC: Denies headache, numbness, dizziness, or weakness. PSYCHIATRIC: Denies anxiety or depression. PMFSH Past Medical History Medical History Decreased movement Morbid obesity with BMI of 45.0-49.9, adult Social History Social History Smoking status: Current every day smoker Substance use: former Gender identity (if verbalized by the patient): Female Spiritual care concerns: No Comments At the time of signature, I have reviewed and agree with nursing past medical, surgical, social, and family history unless otherwise noted. Please see nursing chart for further information. There is no relevant family history pertinent to the presenting complaint. Exam Narrative: Exam Narrative: GENERAL: Well-appearing, well-nourished, and in no acute distress. HEAD: Normocephalic, atraumatic. EYES: EOMI. No redness or drainage. Conjunctiva are normal. ENT: Mucous membranes pink and moist. CHEST: No respiratory distress. HEART: Regular rate and rhythm. EXTREMITIES: Normal range of motion. No edema. SKIN: Patient has abscess to left intergluteal cleft. No drainage noted. Fluctuation and induration noted. NEURO: No focal deficits. Alert and oriented x3. Gait steady. PSYCH: Normal affect. No signs of depression or anxiety. Course Vital Signs Vital signs: Vital Signs Temperature 36.8 C 03/23/21 16:22 Pulse Rate 91 03/23/21 16:22 Respiratory Rate 20 03/23/21 16:22 Blood Pressure 112/47 L 03/23/21 16:22 Pulse Oximetry 100 03/23/21 16:22 Temperature 36.7 C 03/23/21 20:11 Pulse Rate 87 03/23/21 20:11 Respiratory Rate 16 03/23/21 20:11 Blood Pressure 114/68 03/23/21 20:11 Pulse Oximetry 100 03/23/21 20:11 Reviewed Procedures Abscess I/D other: Side (if applicable): left (Intergluteal cleft) Local Anesthetic: lidocaine 1% Amount of anesthesia used (mL): 5 Technique: incised with #11 blade Amount of fluid expressed (mL): 15 Irrigation: Yes Packing used?: plain I&D Results: Pus and Blood Medical Decision Making MDM Narrative Medical decision making narrative: Patient had an apparent pilonidal abscess. Incised and drained at this time. Surrounding cellulitis. Patient started on antibiotics. Patient given referral for follow-up with PCP and general surgery as she has talked to general surgeon in the past about pilonidal. Patient agrees with plan of care. Bhavesh
[2021-03-23 20:11] VITALS: BP 114/68; PULSE 87; RESP 16; TEMP 36.7; O2SAT 100
== END 2021-03-23 20:11 | disposition home or self-care (01) ==
PROVIDERS: Emergency Provider Nurse Practitioner
DX: L05.01 Pilonidal cyst with abscess (principal); E66.01 Morbid (severe) obesity due to excess calories; Z68.42 Body mass index [BMI] 45.0-49.9, adult
CPT/HCPCS: 10060; 10080; 99283

== ENCOUNTER 2021-10-29 13:18 | Emergency (ER) | payer OTHER, MEDICAID, SELFPAY ==
[2021-10-29 13:27] VITALS: BP 126/80; PULSE 105; RESP 14; TEMP 36.4; O2SAT 97
[2021-10-29 14:30] VITALS: BP 130/77; PULSE 78; RESP 19; O2SAT 98; O2SAT 99
--- NOTE | 2021-10-29 15:11 | ED.GENADULT ---
HPI - General Adult General Chief complaint: Upper Respiratory Infection Stated complaint: sore throat, fever, body aches Time Seen by Provider: 10/29/21 14:32 History of Present Illness HPI narrative: 25-year-old female presenting the emergency department for evaluation of sore throat, fever and body aches. Patient states she began developing symptoms on Tuesday. Patient is not vaccinated for COVID. Patient has not had recent COVID testing. Patient denies any chest pain or shortness of breath. Patient denies any associated nausea vomiting or diarrhea. Patient denies any abdominal pain or pain with urination. Related Data Allergies Allergy/AdvReac Type Severity Reaction Status Date / Time cephalexin Allergy Unknown hives Verified 03/23/21 19:02 Review of Systems Review of Systems: CONSTITUTIONAL: Reports fever chills and generalized body ache EYES: Denies visual changes, redness, or discharge. ENT: Reports otalgia and sore throat CARDIOVASCULAR: Denies chest pain, palpitations, or edema. RESPIRATORY: Denies cough or dyspnea. GASTROINTESTINAL: Denies abdominal pain, nausea, vomiting, or diarrhea. GENITOURINARY: Denies dysuria or hematuria. SKIN: Denies rash or itching. MUSCULOSKELETAL: Denies back pain, joint pain. Does have myalgia and body ache NEUROLOGIC: Intermittent headache PSYCHIATRIC: Denies anxiety or depression. [facility] Past Medical History Medical History Decreased movement Morbid obesity with BMI of 45.0-49.9, adult Social History Social History Smoking status: Current every day smoker Substance use: former Gender identity (if verbalized by the patient): Female Spiritual care concerns: No Exam Narrative: APPEARANCE: Well appearing, no pain in distress, well-nourished. HEAD: normocephalic, atraumatic. EYES: PERRLA/EOMI, conjunctivae clear. NOSE: Normal no drainage EARS:TMS clear with good light reflex. THROAT: Pharynx clear, no exudate. NECK: Supple. No adenopathy, no masses. RESPIRATORY: Airway patent, respirations nonlabored. Clear to auscultation bilaterally, no rales, rhonchi, wheezing. CARDIOVASCULAR: Regular rate and rhythm without murmurs rubs or gallops. ABDOMINAL: Soft, nontender, nondistended, normal bowel sounds MUSCULOSKELETAL: Moves all extremities. Strength/ROM intact, No edema, No calf tenderness. NEURO: Alert. Cranial nerves II through XII intact. Good gait. Good coordination SKIN: Warm, dry. Normal Color PSYCHIATRIC: Normal affect/mood. Course Course Emergency Course: Patient was updated on the plan for swabs. Patient was treated with 400 mg of ibuprofen. Patient was updated on the results of her work-up. Patient's tachycardia was improved. Patient was advised to continue to quarantine until her COVID test was resulted. All questions concerns were addressed. Patient was in no distress and was clinically stable at time of discharge from . Vital Signs Vital signs: Vital Signs Temperature 97.5 F L 10/29/21 13:27 Pulse Rate 105 H 10/29/21 13:27 Respiratory Rate 14 10/29/21 13:27 Blood Pressure 126/80 10/29/21 13:27 Pulse Oximetry 97 10/29/21 13:27 Temperature 97.8 F 10/29/21 16:30 Pulse Rate 85 10/29/21 16:30 Respiratory Rate 14 10/29/21 16:30 Blood Pressure 135/80 10/29/21 16:30 Pulse Oximetry 98 10/29/21 16:30 Medical Decision Making Vital Signs Vital Signs: Vital Signs Temperature 97.5 F L 10/29/21 13:27 Pulse Rate 105 H 10/29/21 13:27 Respiratory Rate 14 10/29/21 13:27 Blood Pressure 126/80 10/29/21 13:27 Pulse Oximetry 97 10/29/21 13:27 Temperature 97.8 F 10/29/21 16:30 Pulse Rate 85 10/29/21 16:30 Respiratory Rate 14 10/29/21 16:30 Blood Pressure 135/80 10/29/21 16:30 Pulse Oximetry 98 10/29/21 16:30 Lab Data Labs: Lab Results 10/29/21 Range/Units 14:51 SARS-
[2021-10-29] MEDS: IBUPROFEN 400 MG TABLET PO (15:35)
[2021-10-29 16:30] VITALS: BP 135/80; PULSE 85; RESP 14; TEMP 36.6; O2SAT 98
[2021-10-31 18:18] LABS: SARS-CoV-2 RNA PCR Positive
== END 2021-10-29 16:30 | disposition home or self-care (01) ==
PROVIDERS: Emergency Provider Emergency Medicine
DX: U07.1 COVID-19 (principal); F17.200 Nicotine dependence, unspecified, uncomplicated; E66.01 Morbid (severe) obesity due to excess calories; Z68.37 Body mass index [BMI] 37.0-37.9, adult
CPT/HCPCS: 87081; 87804; 87880; 99283; A9270; C9803; U0003; U0005

== ENCOUNTER → 2022-04-13 15:33 | Outpatient (CLI) | payer OTHER, MEDICAID, SELFPAY ==
--- NOTE | ~2022-04-13 | US_ITS ---
US OB limited DATE: 04/13/2022 16:20 INDICATION: Bleeding. Rule out placenta previa. Gestational age determination. TECHNIQUE: Real-time imaging and Doppler analysis COMPARISON: None FINDINGS: Live momin intrauterine gestation, fetus in transverse lie. heart rate of 153 bpm . Anterior placenta, encroaching upon the internal os. Subjectively normal amount of amniotic fluid. heart rate of 153 bpm. Biparietal diameter 3.28 cm; 16 weeks 1 day Head circumference 12.54 cm; 16 weeks 2 days Abdominal circumference 10.53 cm; 16 weeks 3 days Femur length 2.26 cm; 16 weeks 5 days Composite age by Hadlock formula is 16 weeks 3 days +/- 1 week 1 day, with ANANTH of 09/25/2022 compared to 09/29/2022 by LMP. Estimated weight is 161.7 +/- 20 4 g. Head circumference/abdominal circumference 1.19, within normal range of 1.06-1.32 IMPRESSION: Low-lying anterior placenta Estimated gestational age of 16 weeks 3 days +/- 1 week 1 day; ANANTH: 09/25/2022 Reviewed, dictated and finalized at Location [facility]. Reviewed, dictated and finalized at location B.
== END ==
PROVIDERS: PCP Physician Assistant; Visit Provider Physician Assistant
DX: Z34.90 Encounter for supervision of normal pregnancy, unspecified, unspecified trimester (principal); Z3A.16 16 weeks gestation of pregnancy
CPT/HCPCS: 76815

== ENCOUNTER → 2022-04-29 15:14 | Outpatient (CLI) | payer OTHER, MEDICAID, SELFPAY ==
--- NOTE | ~2022-04-29 | US_ITS ---
EXAMINATION: US breast RT limited HISTORY: Palpable painful subareolar lump of the right breast, patient is 18 weeks . TECHNIQUE: Limited right breast ultrasound is performed in the area of clinical interest. FINDINGS: There is an approximately 2.7 x 1.4 cm heterogeneous fluid collection in the subareolar rig ht breast corresponding to the painful palpable abnormality. There is overlying skin thickening of th e breast. No discrete internal drainable component is identified. There is diffuse increase in internal recruiter al and adjacent vascularity. IMPRESSION: Sonographic findings suggestive of subareolar abscess of the right breast. Recommend trial of antibio tics and continued clinical follow-up with repeat ultrasound in 4-6 weeks. BI-RADS category 3, probably benign findings. Reviewed, dictated and finalized at location A.
--- NOTE | ~2022-04-29 | US_ITS ---
This report was recreated on 05/14/2022. Original report was signed by Michael Church M.D. on 04/29/2022 16:18 CDT EXAMINATION: US breast RT limited HISTORY: Palpable painful subareolar lump of the right breast, patient is 18 weeks . TECHNIQUE: Limited right breast ultrasound is performed in the area of clinical interest. FINDINGS: There is an approximately 2.7 x 1.4 cm heterogeneous fluid collection in the subareolar right breast corresponding to the painful palpable abnormality. There is overlying skin thickening of the breast. No discrete internal drainable component is identified. There is diffuse increase in internal and adjacent vascularity. IMPRESSION: Sonographic findings suggestive of subareolar abscess of the right breast. Recommend trial of antibiotics and continued clinical follow-up with repeat ultrasound in 4-6 weeks. BI-RADS category 3, probably benign findings. Reviewed, dictated and finalized at location A. Dictated By: Michael Church MD 04/29/22 1611 Signed By: <Electronically signed by Michael Church MD in [place]> 04/29/22 1618 [facility]
== END ==
LOC: EXPGOSH 04-30 07:48 → EXPGOSHRAD 05-03 15:07
PROVIDERS: PCP Physician Assistant; Visit Provider Physician Assistant
DX: N63.10 Unspecified lump in the right breast, unspecified quadrant (principal); R92.8 Other abnormal and inconclusive findings on diagnostic imaging of breast
CPT/HCPCS: 76642

== ENCOUNTER 2022-07-07 18:41 | Emergency (ER) | payer OTHER, MEDICAID, SELFPAY ==
[2022-07-07 18:56] VITALS: BP 102/87; PULSE 94; RESP 18; TEMP 36.6; O2SAT 100
--- NOTE | 2022-07-07 21:38 | ED.SKABFB ---
HPI - Skin/Abscess/Foreign Bdy General Chief complaint: Skin/Abscess/Foreign Body Stated complaint: cyst on buttox Time Seen by Provider: 07/07/22 21:25 Source: patient Mode of arrival: ambulatory Limitations: no limitations History of Present Illness HPI narrative: This is a 26-year-old female, about 28 weeks , that presents to the emergency department for an abscess. Present on the right buttock. Reports that has been painful and getting more swollen over the last couple of days. Denies fevers or drainage. Related Data Allergies Allergy/AdvReac Type Severity Reaction Status Date / Time cephalexin Allergy Unknown hives Verified 03/23/21 19:02 Review of Systems Review of Systems: CONSTITUTIONAL: Denies fever SKIN: Reports abscess All systems reviewed & are unremarkable except as noted in HPI and below PMFSH Past Medical History Medical History (Updated 07/08/22 @ 00:00 by Background Daemon) Decreased movement heart deceleration Morbid obesity with BMI of 45.0-49.9, adult Social History Social History Smoking status: Current every day smoker Substance use: former Gender identity (if verbalized by the patient): Female Spiritual care concerns: No Exam Narrative: GENERAL: Well-appearing, well-nourished, and in no acute distress. HEAD: Normocephalic, atraumatic. EYES: EOMI. EXTREMITIES: Normal range of motion. No edema. SKIN: Warm, dry, no rash. 5cm area of edema with central fluctuance to the right buttock NEURO: No focal deficits. Alert and oriented x3. PSYCH: Normal mood and affect Course Vital Signs Vital signs: Vital Signs Temperature 97.9 F 07/07/22 18:56 Pulse Rate 94 07/07/22 18:56 Respiratory Rate 18 07/07/22 18:56 Blood Pressure 102/87 07/07/22 18:56 Pulse Oximetry 100 07/07/22 18:56 Oxygen Delivery Room Air 07/07/22 18:56 Temperature 98.2 F 07/07/22 23:48 Pulse Rate 83 07/07/22 23:48 Respiratory Rate 16 07/07/22 23:48 Blood Pressure 132/80 07/07/22 23:48 Pulse Oximetry 100 07/07/22 23:48 Oxygen Delivery Room Air 07/07/22 22:30 Procedures Abscess I/D other: Date of Incision: 07/07/22 Time of Incision: 23:35 Side (if applicable): right Local Anesthetic: lidocaine 2% and with epi Amount of anesthesia used (mL): 3 Technique: incised with #11 blade Irrigation: Yes Packing used?: plain I&D Results: Pus and Blood MDM - Skin/Abscess/Foreign Bdy MDM Narrative Medical decision making narrative: Patient presents to the emergency department for an abscess present on her right buttock. Patient currently 28 weeks . She has no related complaints. Normal heart tones. She is afebrile and nontoxic-appearing. Abscess was successfully drained. Patient will be started on oral antibiotics. She is to follow-up with her OB. She was given warnings to return to the ER Critical Care Time Critical Care Time Critical Care Time: No Discharge Plan Discharge Clinical Impression: Abscess of skin or subcutaneous tissue Patient Disposition: Home, Self-Care Condition: Stable Instructions: Antibiotic Form, Abscess (ED) Additional Instructions: Return if symptoms worsen or concerns: any increase in redness, swelling, pain, or fever over 101 Take antibiotics as directed. Clean wound with mild soapy water. Apply antibiotic ointment and clean dressing at least three times daily. Warm compresses 3 times a day for 30 minutes each Follow up with primary care in the next 2-3 days for re-evaluation and packing removal Prescriptions: New clindamycin HCl 300 mg capsule 300 mg PO Q6H 7 Days Qty: 28 0RF No Action ibuprofen [IBU] 600 mg tablet 600 mg PO Q6H PRN (Reason: pain) Qty: 20 0RF cetirizine [All Day Allergy (cetirizine)] 10 mg tablet 10 mg PO DAILY Qty: 10 0RF Muci
[2022-07-07] MEDS: LIDO 2%/EPINEPHRINE 1:100,000 20 ML VIAL (22:22)
[2022-07-07 22:30] VITALS: BP 136/80; PULSE 83; RESP 16; TEMP 36.8; O2SAT 100
[2022-07-07 23:48] VITALS: BP 132/80; PULSE 83; RESP 16; TEMP 36.8; O2SAT 100
== END 2022-07-07 23:49 | disposition home or self-care (01) ==
PROVIDERS: Emergency Provider General Practice; PCP Physician Assistant
DX: O99.891 Other specified diseases and conditions complicating pregnancy (principal); L02.31 Cutaneous abscess of buttock; E66.01 Morbid (severe) obesity due to excess calories; O99.333 Smoking (tobacco) complicating pregnancy, third trimester; F17.200 Nicotine dependence, unspecified, uncomplicated; Z3A.28 28 weeks gestation of pregnancy
CPT/HCPCS: 10060; 10061; 87070; 87205; 99283

== ENCOUNTER 2022-09-27 10:51 | Emergency (ER) | payer OTHER, MEDICAID, SELFPAY ==
[2022-09-27 10:56] VITALS: BP 128/64; PULSE 82; RESP 20; TEMP 36.2; O2SAT 99
--- NOTE | 2022-09-27 11:02 | ED.URI ---
HPI - URI/Sore Throat General Chief Complaint: Upper Respiratory Infection Stated Complaint: throat ears and head Time Seen by Provider: 09/27/22 11:12 Source: patient and RN notes reviewed Mode of arrival: ambulatory Limitations: no limitations History of Present Illness HPI Narrative: 26-year-old female who is 1 week and presents with concern for 2 day history of sore throat, ear pain. She has taken DayQuil without relief. She reports she had chills yesterday, otherwise denies fever, aches, sweats, general malaise. MD elicited complaint: cough and sore throat Related Data Allergies Allergy/AdvReac Type Severity Reaction Status Date / Time cephalexin Allergy Unknown hives Verified 03/23/21 19:02 Review of Systems Review of Systems: CONSTITUTIONAL: Denies malaise, sweats, or fever. EYES: Denies visual changes, redness, or discharge. ENT: Reports rhinorrhea, otalgia and sore throat. Denies congestion, sinus pain CARDIOVASCULAR: Denies chest pain, palpitations, or edema. RESPIRATORY: Denies cough. Denies dyspnea. GASTROINTESTINAL: Denies abdominal pain, nausea, vomiting, diarrhea SKIN: Denies rash or itching. MUSCULOSKELETAL: Denies myalgia. NEUROLOGIC: Denies headache. All systems reviewed & are unremarkable except as noted in HPI and below PMFSH Past Medical History Medical History (Updated 09/27/22 @ 11:27 by Anastasia Alvarez, NITHIN) Decreased movement heart deceleration Morbid obesity with BMI of 45.0-49.9, adult Social History Social History Smoking status: Current every day smoker Substance use: former Gender identity (if verbalized by the patient): Female Spiritual care concerns: No Comments At time of signature, agree with nursing past medical, surgical, social and family history. There is no relevant family history pertinent to the presenting complaint Exam Narrative: GENERAL: Well-appearing, well-nourished, and in no acute distress. HEAD: Normocephalic EYES: PERRLA, conjunctivae clear ENT: Nares clear, turbinates edematous and erythematous, clear discharge. Mucous membranes moist. TM pearly bright with dull light reflex bilaterally; no tragal tenderness. Oropharynx erythematous without lesions. Tonsils not enlarged and without exudate, no drooling, no hoarseness, no trismus, uvula midline. NECK: Supple. No lymphadenopathy CHEST: Clear to auscultation, breath sounds equal. No wheezing, rhonchi, rales, or stridor. No respiratory distress, speaks in full sentences. HEART: Regular rate and rhythm. No murmur heard. SKIN: Warm, dry, no rash. NEURO: Alert and oriented x3. PSYCH: Normal mood and affect Course Course Emergency Course: Patient is aware of diagnosis, understands and agrees to treatment plan. Anticipatory guidance given. Patient agrees to follow-up as directed and is aware of reasons to seek care at the emergency department. Portions of this record may have been created with voice recognition software Level of Care: Express Care Visit Vital Signs Vital signs: Vital Signs Temperature 97.1 F L 09/27/22 10:56 Pulse Rate 82 09/27/22 10:56 Respiratory Rate 20 09/27/22 10:56 Blood Pressure 128/64 09/27/22 10:56 Pulse Oximetry 99 09/27/22 10:56 Oxygen Delivery Room Air 09/27/22 10:56 Temperature 97.1 F L 09/27/22 10:56 Pulse Rate 82 09/27/22 10:56 Respiratory Rate 20 09/27/22 10:56 Blood Pressure 128/64 09/27/22 10:56 Pulse Oximetry 99 09/27/22 10:56 Oxygen Delivery Room Air 09/27/22 10:56 Reviewed. MDM - URI/Sore Throat MDM Narrative Medical decision making narrative: Differential diagnosis considered: Mead virus, strep pharyngitis, allergic rhinitis, upper respiratory tract infection, sinusitis, rhinosinusitis, nasopharyngitis. viral pharyngitis, otitis media, otitis externa, pneumonia, bronchitis, viral cough syndrome, viral syndrome, and influenza
== END 2022-09-27 11:34 | disposition home or self-care (01) ==
PROVIDERS: Emergency Provider Nurse Practitioner
DX: O99.53 Diseases of the respiratory system complicating the puerperium (principal); J06.9 Acute upper respiratory infection, unspecified; Z20.822 Contact with and (suspected) exposure to COVID-19; F17.200 Nicotine dependence, unspecified, uncomplicated
CPT/HCPCS: 87081; 87426; 87804; 99213; C9803; G0463

== ENCOUNTER 2023-02-16 19:07 | Emergency (ER) | payer OTHER, MEDICAID, SELFPAY ==
[2023-02-16 19:19] VITALS: BP 136/66; PULSE 82; RESP 18; TEMP 36.2; O2SAT 99
--- NOTE | 2023-02-16 19:36 | ED.SKABFB ---
HPI - Skin/Abscess/Foreign Bdy General Chief complaint: Skin/Abscess/Foreign Body Stated complaint: cyst Source: patient Mode of arrival: ambulatory Limitations: no limitations History of Present Illness HPI narrative: Patient is a 27-year-old female presents with abscess to the right butt cheek. Patient states she had a larger 1 a week ago that spontaneously burst and was draining. Patient states she has another 1 an inch from previous one. States today his Hutch, sit down and walk. History of abscesses on buttocks. Reports fever last night. Related Data Allergies Allergy/AdvReac Type Severity Reaction Status Date / Time cephalexin Allergy Unknown hives Verified 02/16/23 19:26 Review of Systems Review of Systems: All systems reviewed & are unremarkable except as noted in HPI and below Constitutional: Constitutional: Denies body ache(s), Denies chills, Denies fatigue, Reports fever(s), Denies headache(s), Denies malaise and Denies weakness Eyes: Eyes: Denies blurry vision, Denies irritation and Denies loss of vision ENT: Denies otalgia, Denies headache(s), Denies nasal discharge, Denies sinus pain and Denies sore throat Cardiovascular: Cardiovascular: Denies chest pain, Denies irregular heart rhythm and Denies dyspnea Respiratory: Respiratory: Denies dyspnea Gastrointestinal: Gastrointestinal: Denies abdominal pain, Denies melena, Denies hematochezia, Denies diarrhea, Denies nausea and Denies vomiting Musculoskeletal: Musculoskeletal: Denies back pain, Denies myalgias and Denies arthralgias Integumentary/Breasts: Skin/Breast: Denies pruritus, Denies rash and Reports wounds Neurologic: Denies headache(s), Denies loss of vision and Denies weakness Psychiatric: Psychiatric: Reports no additional psychiatric complaints Endocrine: Endocrine: Denies fatigue PMFSH Past Medical History Medical History (Updated 02/16/23 @ 19:40 by Funmi Mendez, INSTANTIZER OPERATOR) Decreased movement heart deceleration Morbid obesity with BMI of 45.0-49.9, adult Social History Social History Smoking status: Current every day smoker Substance use: former Gender identity (if verbalized by the patient): Female Spiritual care concerns: No Comments At time of signature, agree with nursing past medical, surgical, social and family history. There is no relevant family history pertinent to the presenting complaint. Exam Const: General: cooperative, healthy appearing, comfortable, no acute distress and well nourished Nutritional Appearance: well nourished Orientation/consciousness: patient oriented x3 Limitations: no limitations HENMT: Head: normal to inspection, normocephalic and atraumatic Ears: hearing grossly normal bilaterally and external ears normal Face/Nose/Sinus: Normal external nose present, normal facial exam and face symmetric Face and sinus: normal facial exam and face symmetric Mouth: Yes lip normal Eyes: General: appearance normal, both eyes and all related structures Alignment and Position: alignment normal and position normal Periorbital: periorbital findings normal Eyelids: eyelids normal Pupils: Equal, round and reactive pupils present EOM: EOMs intact bilaterally Neck: Neck: normal visual inspection, full ROM and supple Chest: Chest palpation & inspection: normal inspection of the chest Resp: Effort & Inspection: normal respiratory effort and able to speak in complete sentences Auscultation: clear to auscultation bilaterally Cardio: Rate: regular rate Rhythm: regular rhythm Heart sounds: S1 normal heart sound present and S2 normal heart sound present GI: Inspection: normal to inspection Skin: General skin exam: normal color Lesions: lesion noted pustule right mid buttock size (2cm x2xm), consistency firm and fluctuant, morphology dome-shaped, surface indurated and tender Full body images: 1. 2x2 area of indurated skin with center
== END 2023-02-16 19:50 | disposition home or self-care (01) ==
PROVIDERS: Emergency Provider Nurse Practitioner Family
DX: L02.31 Cutaneous abscess of buttock (principal); E66.01 Morbid (severe) obesity due to excess calories; Z68.41 Body mass index [BMI] 40.0-44.9, adult; F17.200 Nicotine dependence, unspecified, uncomplicated
CPT/HCPCS: 10160; 87070; 87205; 99213; G0463

== ENCOUNTER 2024-03-26 11:11 | Emergency (ER) | payer OTHER, SELFPAY ==
[2024-03-26 11:26] VITALS: BP 105/64; PULSE 71; RESP 16; TEMP 36.3; O2SAT 98
--- NOTE | 2024-03-26 11:35 | ED.SKABFB ---
HPI - Skin/Abscess/Foreign Bdy General Chief complaint: Skin/Abscess/Foreign Body Stated complaint: Boil under left breast/fever Source: patient Mode of arrival: ambulatory Limitations: no limitations History of Present Illness HPI narrative: 28 y/o female presented for c/o abscess to left breast x1 week. Endorses history of abscesses. Applied witch bin to the site. Endorses small amount of drainage over the past few days. Related Data Allergies Allergy/AdvReac Type Severity Reaction Status Date / Time cephalexin AdvReac Mild hives Verified 03/26/24 11:22 Review of Systems Review of Systems: CONSTITUTIONAL: Denies body aches, fever, chills, or sweats. EYES: Denies visual changes, redness, or discharge. ENT: Denies rhinorrhea, congestion CARDIOVASCULAR: Denies chest pain, palpitations, or edema. RESPIRATORY: Denies cough or dyspnea. GASTROINTESTINAL: Denies abdominal pain, nausea, vomiting, or diarrhea. SKIN: reports boil to left breast MUSCULOSKELETAL: Denies back pain, joint pain, or myalgia. NEUROLOGIC: Denies headache, numbness, tingling, or weakness. [facility] Past Medical History Medical History Decreased movement heart deceleration Morbid obesity with BMI of 45.0-49.9, adult Social History Social History Smoking status: Current every day smoker Substance use: former Gender identity (if verbalized by the patient): Female Spiritual care concerns: No Comments At time of signature, I have reviewed and agree with nursing past medical, surgical, social and family history unless otherwise noted. Please see nursing chart for further information. There is no relevant family history pertinent to the presenting complaint Exam Narrative: GENERAL: Well-appearing HEAD: Normocephalic, atraumatic. EYES: conjunctivae clear, and EOMI. ENT: Mucous membranes moist. Oropharynx without edema, erythema or lesions. NECK: Supple. No lymphadenopathy CHEST: Clear to auscultation. HEART: Regular rate and rhythm. SKIN: Warm, dry. Abscess left breast approx 5cm diameter, fluctuant, tender; surrounding mild erythema extending towards areola. no apparent cellulitis NEURO: Alert and oriented x3. Chest: Chest/axillae images: 1. area of abscess Course Course Emergency Course: Patient is aware of diagnosis, understands and agrees to treatment plan. Anticipatory guidance given. Patient agrees to follow-up as directed and is aware of reasons to seek care at the emergency department. Portions of this record may have been created with voice recognition software Level of Care: Express Care Visit Vital Signs Vital signs: Vital Signs Temperature 97.3 F L 03/26/24 11:26 Pulse Rate 71 03/26/24 11:26 Respiratory Rate 16 03/26/24 11:26 Blood Pressure 105/64 03/26/24 11:26 Pulse Oximetry 98 03/26/24 11:26 Oxygen Delivery Room Air 03/26/24 11:26 Temperature 97.3 F L 03/26/24 11:26 Pulse Rate 71 03/26/24 11:26 Respiratory Rate 16 03/26/24 11:26 Blood Pressure 105/64 03/26/24 11:26 Pulse Oximetry 98 03/26/24 11:26 Oxygen Delivery Room Air 03/26/24 11:26 Reviewed Procedures Abscess I/D left breast: Local Anesthetic: lidocaine 1% Amount of anesthesia used (mL): 2 Technique: incised with #11 blade and probed loculations Irrigation: Yes Packing used?: iodoform I&D Results: Pus and Blood Abcess I&D Additional Comments: The procedure and its alternatives were reviewed with patient. Risks were reviewed with patient including infection and damage to nearby structures. Patient provided verbal informed consent. The patient was positioned appropriately. Local anesthesia achieved. Single straight Incision made to center of most fluctuant area. Moderate amount of thick purulent discharge expelled with manual pres
== END 2024-03-26 12:15 | disposition home or self-care (01) ==
PROVIDERS: Emergency Provider Nurse Practitioner Family
DX: N61.1 Abscess of the breast and nipple (principal); F17.200 Nicotine dependence, unspecified, uncomplicated; E66.01 Morbid (severe) obesity due to excess calories; Z68.42 Body mass index [BMI] 45.0-49.9, adult
CPT/HCPCS: 10060; 87070; 87075; 87205; 99213; G0463

== ENCOUNTER 2024-09-10 08:20 | Emergency (ER) | payer OTHER, SELFPAY ==
[2024-09-10 08:25] VITALS: BP 117/50; PULSE 87; RESP 16; TEMP 36.3; O2SAT 99
--- NOTE | 2024-09-10 08:34 | ED.URI ---
HPI - URI/Sore Throat General Chief Complaint: Upper Respiratory Infection Stated Complaint: Fever / sore throat / body chills Time Seen by Provider: 09/10/24 08:34 Source: patient, RN notes reviewed and old records reviewed Mode of arrival: ambulatory Limitations: no limitations History of Present Illness HPI Narrative: patient presents with complaints of sore throat, body aches, fever. Symptoms began yesterday. She has been taking ibuprofen with moderate results. She denies any injury or trauma. She is able to manage own secretion, no drooling or stridor noted. She voices no other concerns or complaints at this time Related Data Allergies Allergy/AdvReac Type Severity Reaction Status Date / Time cephalexin AdvReac Mild hives Verified 09/10/24 08:23 Review of Systems Review of Systems: All systems reviewed & are unremarkable except as noted in HPI and below Constitutional: Constitutional: Reports no additional constitutional complaints, Reports body ache(s) and Reports fever(s) ENT: Reports system reviewed and no additional complaints, except as documented and Reports sore throat Cardiovascular: Cardiovascular: Reports no additional cardiovascular complaints Respiratory: Respiratory: Reports no additional respiratory complaints Gastrointestinal: Gastrointestinal: Reports no additional gastrointestinal complaints [facility] Past Medical History Medical History Decreased movement heart deceleration Morbid obesity with BMI of 45.0-49.9, adult Social History Social History Smoking status: Current every day smoker Substance use: former Gender identity (if verbalized by the patient): Female Spiritual care concerns: No Comments At the time of my signature, I reviewed and agree with the nursing past medical, surgical, social, and family history. There is no relevant family history pertinent to the patient complaint. Exam Const: General: cooperative, no acute distress, alert and awake Orientation/consciousness: oriented to person, oriented to place and oriented to time HENMT: Head: normal to inspection Ears: TM's normal bilaterally Throat: abnormal tonsil bilateral erythema, exudates and hypertrophy 2+ Resp: Effort & Inspection: normal respiratory effort and able to speak in complete sentences Auscultation: clear to auscultation bilaterally, no crackles, no rales, no rhonchi and no wheezes Cardio: Palpation: normal PMI Rate: regular rate Rhythm: regular rhythm Heart sounds: S1 normal heart sound present and S2 normal heart sound present Neuro: General: oriented to person, oriented to place and oriented to time Cranial nerves: Yes CN's II-XII intact bilaterally Psych: Appearance: grossly normal Thought process: Normal thought process present Insight: Good insight present (Psych) Judgement: Good judgement present (Psych) Course Course Level of Care: Express Care Visit Vital Signs Vital signs: Vital Signs Temperature 97.3 F L 09/10/24 08:25 Pulse Rate 87 09/10/24 08:25 Respiratory Rate 16 09/10/24 08:25 Blood Pressure 117/50 L 09/10/24 08:25 Pulse Oximetry 99 09/10/24 08:25 Oxygen Delivery Room Air 09/10/24 08:25 Temperature 97.3 F L 09/10/24 08:25 Pulse Rate 87 09/10/24 08:25 Respiratory Rate 16 09/10/24 08:25 Blood Pressure 117/50 L 09/10/24 08:25 Pulse Oximetry 99 09/10/24 08:25 Oxygen Delivery Room Air 09/10/24 08:25 Reviewed MDM - URI/Sore Throat MDM Narrative Medical decision making narrative: positive rapid strep. Patient nontoxic appearing, stable for p.o. antibiotics, discharge home. Negative flu, negative COVID. Discharge instructions reviewed with patient, as well as provided in writing per nursing staff. The instructions also include specific and strict return/GO TO THE ER as well as f/u information. All questions have been answered, and the patient deny any further questions with discharge and discharge plan. Some parts of this dictation were generated by voice recognition software and may contain typographical and/or grammatical inaccuracies. Differential Diagnosis Differential diagnosis: Likely upper respiratory infection, otitis media, viral infection, influenza and pharyngitis Medical Records Attestation: I reviewed the patient's medical records. Lab Data Attestation: I reviewed the patient's lab results. Discharge Plan Discharge Clinical Impression: Pharyngitis Qualifiers: Pharyngitis/tonsillitis etiology: streptococcus Qualified Code(s): J02.0 - Streptococcal pharyngitis Patient Disposition: Home, Self-Care Condition: Stable Instructions: Antibiotic Form, Strep Throat (ED) Additional Instructions: Take medication as prescribed. Follow-up with primary care provider. Emergency department for new or worse symptoms Prescriptions: New penicillin V potassium 500 mg tablet 500 mg PO Q12H 10 Days Qty: 20 0RF Follow-up/Referrals: PHYSICIAN,PRODUCE WEIGHER [Primary Care Provider] - Stand Alone Forms: Work/School Release IP Time of Disposition: 08:50
[2024-09-10 08:40] LABS: EDSTREPNEGPOS1 Positive (Negative)
[2024-09-10 08:49] LABS: EDCOVIDSCREEN Negative (Negative); EDINFLUASCREEN Negative (Negative); EDINFLUBSCREEN Negative (Negative)
== END 2024-09-10 08:53 | disposition home or self-care (01) ==
PROVIDERS: Emergency Provider Nurse Practitioner Family
DX: J02.0 Streptococcal pharyngitis (principal); Z20.822 Contact with and (suspected) exposure to COVID-19; F17.200 Nicotine dependence, unspecified, uncomplicated; E66.01 Morbid (severe) obesity due to excess calories; Z68.42 Body mass index [BMI] 45.0-49.9, adult
CPT/HCPCS: 87426; 87804; 87880; 99213; G0463

== ENCOUNTER 2025-01-08 09:29 | Emergency (ER) | payer OTHER, SELFPAY ==
[2025-01-08 09:39] VITALS: BP 112/43; PULSE 63; RESP 17; TEMP 36.3; O2SAT 100
--- NOTE | 2025-01-08 09:42 | ED_ITS ---
HPI - Female Genitourinary General Chief complaint: Urogenital-Female Stated complaint: Bladder Infection Time Seen by Provider: 01/08/25 09:42 Source: patient and RN notes reviewed Mode of arrival: ambulatory Limitations: no limitations History of Present Illness HPI Narrative: 29-year-old female presented for complaint of vaginal itching and ?raw? sensation to the vaginal area. She denies vaginal discharge, dysuria, hematuria, nausea, vomiting, abdominal pain, flank pain, constipation, diarrhea, fevers or chills. Endorses unprotected sexual activity with multiple partners last month. Denies known exposure but would like to be tested for STDs. Reports concern for yeast. Denies hx HSV. No treatment prior to arrival. Related Data Allergies Allergy/AdvReac Type Severity Reaction Status Date / Time cephalexin AdvReac Mild hives Verified 01/08/25 09:35 Review of Systems Review of Systems: CONSTITUTIONAL: Denies body aches, fever, chills, or sweats. CARDIOVASCULAR: Denies chest pain, palpitations, or edema. RESPIRATORY: Denies cough or dyspnea. GASTROINTESTINAL: Denies abdominal pain, nausea, vomiting, or diarrhea. GENITOURINARY: Reports dysuria, vaginal irritation. Denies frequency, urgency, hematuria, flank pain SKIN: Denies rash MUSCULOSKELETAL: Denies back pain or myalgia. [facility] Past Medical History Medical History Decreased movement heart deceleration Morbid obesity with BMI of 45.0-49.9, adult Social History Social History Smoking status: Current every day smoker Substance use: former Gender identity (if verbalized by the patient): Female Spiritual care concerns: No Comments At time of signature, I have reviewed and agree with nursing past medical, surgical, social and family history unless otherwise noted. Please see nursing chart for further information. There is no relevant family history pertinent to the presenting complaint Exam Narrative: GENERAL: Well-appearing ENT: Mucous membranes pink and moist. CHEST: No respiratory distress. Clear to auscultation. HEART: Regular rate and rhythm. ABDOMEN: Soft, nontender, nondistended, normal active bowel sounds. No CVA tenderness : normal vaginal introitus, pink with white discharge. No bleeding, foreign body, laceration or lesions. No swelling. Nontender. normal appearance of the cervix, closed Chaperoned by Bruna PIKE SKIN: Warm, dry, no rash.Right nipple with scant white discharge manually expressed by pt. No tenderness, induration, streaking, or warmth to the surrounding tissue. NEURO: No focal deficits. Alert and oriented x3. Gait steady. PSYCH: flat affect. No signs of depression or anxiety. Course Course Emergency Course: Patient is aware of diagnosis, understands and agrees to treatment plan. Anticipatory guidance given. Patient agrees to follow-up as directed and is aware of reasons to seek care at the emergency department. Portions of this record may have been created with voice recognition software Level of Care: Express Care Visit Vital Signs Vital signs: Vital Signs Temperature 97.4 F L 01/08/25 09:39 Pulse Rate 63 01/08/25 09:39 Respiratory Rate 17 01/08/25 09:39 Blood Pressure 112/43 L 01/08/25 09:39 Pulse Oximetry 100 01/08/25 09:39 Oxygen Delivery Room Air 01/08/25 09:39 Temperature 97.4 F L 01/08/25 09:39 Pulse Rate 63 01/08/25 09:39 Respiratory Rate 17 01/08/25 09:39 Blood Pressure 112/43 L 01/08/25 09:39 Pulse Oximetry 100 01/08/25 09:39 Oxygen Delivery Room Air 01/08/25 09:39 Reviewed MDM - Female Genitourinary MDM Narrative Medical decision making narrative: neg preg Patient presenting with concern for STD. Swabs collected for GC, chlamydia, trich, BV and Yeast Informed Pt will be contacted w/ results when they become available if they are positive. Discussed with patient that it takes up to 7 days for results of cultures to be released and explained that we may treat empirically at this time. Agreeable to treatment for yeast at this time. Rx mupirocin to right nipple I have instructed the patient to return to the ER at any time if there are any new or worsening symptoms and to establish with pcp and obgyn. The patient expressed understanding of and agreement with this plan. Differential Diagnosis Differential diagnosis: Likely urinary tract infection, bacterial vaginosis, trichomoniasis, cervicitis, vaginitis and cystitis Discharge Plan Discharge Clinical Impression: Concern about STD in female without diagnosis, Discharge from nipple Patient Disposition: Home, Self-Care Condition: Stable Instructions: Antibiotic Form, Sexually Transmitted Diseases (ED), Yeast Infection (ED) Additional Instructions: Please establish and follow up with a pcp and obgyn Your urine will be sent of for a culture to determine if bacteria is causing your symptoms. If the culture shows a UTI, you will be notified and an antibiotic will be called in for you. Your urine has been sent off to test for gonorrhea, chlamydia, and trichomonas infections. As well as BV and yeast. You will be called if any of your tests come back positive. These tests can take up to 5 days to come back. If your tests come back positive you will need further treatment, and you will need to notify any partners that you have so they can be tested and treated. To avoid reinfection, you are advised to abstain from sexual intercourse until you and sex partners have been treated (ie, after completing the 7-day antibiotic regimen, and any symptoms have resolved. You will be treated for a yeast infection; prescription for fluconazole Appy mupirocin to right nipple. Avoid touching/squeezing to reduce the risk of infection. If your tests come back negative and you are still experiencing symptoms, please follow-up with a PCP or obgyn for further evaluation and treatment. If your symptoms worsen to include fever, abdominal pain, or back pain, please go to the hospital immediately. Patient Language: Nepali Prescriptions: New fluconazole 150 mg tablet 150 mg PO DAILY Qty: 2 0RF mupirocin 2 % ointment 1 applic topical BID 7 Days Qty: 22 0RF Follow-up/Referrals: PHYSICIAN,BARREL DRUM CUTTER [Primary Care Provider] - Time of Disposition: 10:12
[2025-01-08 09:50] LABS: EDUAAPPEAR Clear; EDUABILI Negative (Negative); EDUABLOOD Negative (Negative); EDUACOLOR1 Yellow; EDUAGLUCOSE Negative (Negative); EDUAKETONE Negative (Negative); EDUALEUKO Negative (Negative); EDUANITRATE Negative (Negative); EDUAPH 5.5; EDUAPROTEIN Negative (Negative); EDUAUROBILI 0.2
[2025-01-08 10:18] LABS: BEDSIDEPREGUCG Negative (Negative)
--- OUTSIDE RECORDS SUMMARY | 2025-01-08 10:36 | XMS_ITS | Clinical Summary ---
Author Organization [facility] Address [address] [place] [address] Care Team Providers Care Dental Floss Packer Name Role Phone Unavailable Primary Care Provider Unavailabl e Source Comments [facility],non-owned Affiliates and Associated Physician Practices is amultiple site organization consisting of ambulatory clinics and hospital sitesin [place], [place], [place] and [place]. This disclosure is being madepursuant to the Care Everywhere program and may not contain all information available regarding this patient. Last updated 18.[employer] [facility] Allergies Active Allergy Reactions Criticality Noted Date Comments Cephalexin Urticaria Medium 06/14/2022 Medications * Be aware that medications may not be up to date on this document. Alwaysverify current medications with the patient. Medication Sig Dispensed Refills Start Date End Date Status Vit-Fe Fumarate-FA ( vitamin) 28-0.8 MG tablet Take 1 tablet by mouth once daily Active Family History Medical History Relation Name Comments Diabetes - Type 2 Mother Relation Name Status Comments Father Alive Mother Alive Sister Alive Social History Tobacco Use Types Packs/Day Years Used Date Smoking Tobacco: Every Day Cigarettes 0.4 9 Smokeless Tobacco: Never Alcohol Use Standard Drinks/Week Comments Not Currently 0 (1 standard drink = 0.6 oz pur e alcohol) Sex and Gender Information Value Date Recorded Sex Assigned at Not on file Gender Identity Not on file Sexual Orientation Not on file Last Filed Vital Signs Vital Sign Reading Time Taken Comments Blood Pressure 120/64 06/16/2022 11:05 AM CDT Pulse - - Temperature - - Respiratory Rate - - Oxygen Saturation - - Inhaled Oxygen Concentration - - Weight 128.3 kg (282 lb 12.8 oz) 2021 11:05 AM CDT Height 162.6 cm (5' 4 ) 06/16/2022 11:0 5 AM CDT Body Mass Index 48.54 06/16/2022 11:05 AM CDT Plan of Treatment Health Maintenance Due Date Last Done Comments PAP SMEAR 1996 HIV SCREENING 2011 HEPATITIS C SCREENING 10/26/2014 DTAP/TDAP/TD VACCINES (1 - Tdap) 2015 HEPATITIS B VACCINE (1 of 3 - 19+ 3-dose series) 2015 PNEUMOCOCCAL VACCINE (1 of 2 - PCV) 2015 COVID-19 VACCINE (1 - 2023-2 5 season) 2024 INFLUENZA VACCINE (#1) 2024 DEPRESSION SCREENING 10/17/2024 ZOSTER VACCINE (1 of 2) 2046 HIB VACCINE Aged Out No longer eligi ble based on patient's age to complete this topic HPV VACCINE Aged Out No longer eligi ble based on patient's age to complete this topic MENINGOCOCCAL (Group B) VACC INE SHARED DECISION-MAKING Aged Out No longer eligibl e based on patient's age to complete this topic MENINGOCOCCAL GROUPS A/C/Y/W VACCINE Aged Out No longer eligible b ased on patient's age to complete this topic
--- OUTSIDE RECORDS SUMMARY | 2025-01-08 10:37 | XMS_ITS | Data Portability ---
Author Organization [facility] Address [address] [place] [address] Care Team Providers Care Product Merchandiser Name Role Phone [facility] Wirer Assessment No assessment recorded. Plan of Treatment Reminders Order Date Submit Date Provider Last Modified By Organization Details Last Modified Time Details Appointments None recorded. Lab streptococc us group B, culture, unspecified specimen 2021 [facility], [address] [place], [address], 11:36:59 Referral None recorded. Procedures None recorded. Surgeries None recorded. Imaging non-stress test 2021 [email or web address] Not available 13:56:50 US, obstetric, biophysical profile + non-stress test 2021 JOAQUIN Not available 19:28:59 US, obstetric, follow-up - growth EFW 2021 [email or web address] Not available 15:59:36 non-stress test 2021 [email or web address] Not available 11:04:49 Medication Orders None recorded. Patient TargetsNo targets recorded. Patient Instructions Encounter Date Encounter Id Patient Instructions Last Modified By Organization Details Last Modified Time 09/06/2022 [id number] body mass index: care instructions Not available 09/06/2022 17:04:06 learning about healthy weight Not available 09/06/2022 17:04:06 RTO in 1 week fo r MARYANN visit with NST Not available 09/08/2022 11:43:57 Reason for Referral None Reported. Results Created Date Observation Date Name Description Value Unit Range Abnormal Flag Note LastModifiedBy Organization Detail LastModifiedTime 09/06/20 22 09/08/2022 STREP TOCOC CUS, GROUP B CULTU RE streptococcu s, group B culture SEE NOTE abnormal STREP TOCOC CUS, GROUP B CULTU RE Micro Numbe r: [id number] Test Statu s: Final Speci men Sourc e: Recto vag Speci men Quali ty: Adequ ate Resul t: Group B Strep tococ cus isola shanna Beta- hemol ytic strep tococ ci are predi ctabl y susce ptibl e to Penic illin and other beta- lacta ms. Susce ptibi lity testi ng not routi eliana perfo rmed. Pleas e conta ct the labor atory withi n 3 days if susce ptibi lity testi ng is ivonne ed. Note per CDC guide lines optim al recov lashonda is achie kevin by swabb ing both the lower vagin a and rectu m (thro ugh the anal sphin cter) . Not Available [facility] [address] [place], [address], 09/08/2022 11:36:59 09/08/20 22 09/06/2022 US, obste tric, bioph ysica l profi le + non-s tress test No observ ation record ed. [email or web address] [address], [place], [address], 09/11/2022 11:25:43 Result Notes None recorded. Problems Name Problem SNOMED Code Status Onset Date Resolution Date Notes Provider Name and Address Organization Details Recorded Time 37902579 Completed 202101/27/2023 Farrah Stapleslister null, [facility] IV 3 16:26:48 Gestation period, 36 weeks 85203787 Active 2021 Esdras Martines, WHNP [address] [place], [address], [facility] IV 2 11:34:29 Maternal tobacco use 397455489 Completed Farrah Neri null, [place] - [facility] IV 3 16:26:46 Morbid obesity 435897161 Completed Farrah Neri null[place] - [facility] IV 3 16:26:46 Group B Streptoco ccus carrier 241325930739 3 Completed Farrahanum StaplesNeri null, [place] - [facility] IV 3 16:26:46 Problem Notes None recorded. Procedures Surgical History Date Name Laterality Status Provider Name and Address Organization Details Recorded Time 09/14/2022 NST completed MAXIMINO MOSS DO [address] [place], [address], [facility] - [facility] IV 09/14/2022 16:38:54 09/06/2022 NST completed DAMASO Ceron [facility] [place], [address], [facility] IV 09/08/2022 11:33:05 03/05/2020 Date of Last Pap Smear completed Park Hankins [place] - [facility] IV 09/06/2022 15:37:46 Imaging Results Imaging Date Name Status LastModified by Organiz ation Details LastModified Time 09/06/2022 US, obstetric, biophysical profile + non-stress test completed [email or web address] [address], [place], [address], 09/11/2022 11:25:43 Procedure Notes None recorded. Medical Equipment None Reported. Allergies Allergen ID Allergen Name Allergen Category Reaction Reaction Severity Criticality Documentation Date Start Date Code Code System Note Provider Name and Address Organization Details Recorded Time 621989 cephalexi n medicatio n Not available Not available Not available 09/06/20222230 RxNorm Not Available Not Available Not Available Medications Name Sig Start Date Stop Date Status Note LastModified by Organization Details LastModified Time clindamycin HCl 300 mg capsule TAKE 1 CAPSULE BY MOUTH THREE TIMES A DAY FOR 7 DAYS 09/06 completed Not Available Not Available Not Available fluconazole 150 mg tablet TAKE 1 TABLET BY MOUTH EVERY DAY FOR 1 DAY 09/06 completed Not Available Not Available Not Available metronidazol e 500 mg tablet TAKE 1 TABLET BY MOUTH TWICE DAILY FOR 7 DAYS 09/06 completed Not Available Not Available Not Available aspirin 81 mg tablet,delay ed release 09/06 completed Not Available Not Available Not Available Vitals Date Recorded Body weight Body temperature Body mass index (BMI) Body height Systolic blood pressure Diastolic blood pressure Provider Name and Address Organization Details Last Updated DateTime 2 750598. 965857 g 97.6 [degF] 50 kg/m2 162.56 cm 120 mm[Hg] 68 mm[Hg] Park Cr [facility] IV 2 16:47:16 Date Recorded Body height Body mass index (BMI) Body temperature Systolic blood pressure Diastolic blood pressure Provider Name and Address Organization Details Last Updated DateTime 09/14/2022 162.56 cm 51.4 kg/m2 97 [degF] 122 mm[Hg] 60 mm[Hg] Tramea Scarlett [facility] IV 2 16:43:40 Date Recorded Body weight Provider Name an d Address Organization Details Last Updated DateTime 09/14/2022 317208.916569 g MAXIMINO MOSS , DO [facility] [place], [address], [facility] IV 09/14/2022 17:09:49 Social History Question Answer Notes LastModified by Organizat ion Details LastModified Time Tobacco Smoking Status Current Every Day Smoker Park Hankins [facility], [facility] IV 09/06/2022 16:50:45 What Is Your Level Of Alcohol Consumption? None Information not available 09/06/2022 Are You Blind Or Do You Have Difficulty Seeing? No Information not available 09/06/2022 What Type Of Diet Are You Following? REGULAR Information not available 09/06/2022 How Many Children Do You Have? 1 Information not available 09/06/2022 What Is Your Relationship Status? Single Information not available 09/06/2022 Are You Sexually Active? Yes Information not available 09/06/2022 How Much Tobacco Do You Smoke? 1 PPW Information not available 09/06/2022 Do You Use Any Illicit Or Recreational Drugs? No Information not available 09/06/2022 Do You Or Have You Ever Used Any Other Forms Of Tobacco Or Nicotine? No Information not available 09/06/2022 Sex: Unknown Functional Status Question Answer Note LastModified by Organization D etails LastModified Time What is your exercise level? None Information not available 09/06/2022 Mental Status None recorded. Family History Relationship Description Onset Age of this Age Resolved Age Notes LastModified by Organization Details LastModified Time Mother Diabetes mellitus [email or web address] Not available 2021 16:49:48 Mother Epilepsy [email or web address] Not available 09/06/2022 16:50:01 Paternal Grandmother Malignant tumor of breast [email or web address] Not available 2021 16:50:09 Medical History No medical history recorded. Gynecological History Statement/Question Response HPV Vaccine N Date of Last Pap Smear 03/05/2020 Current Control Method Age at Menarche 10 Date of LMP 12/12/2021 Obstetrics History GPAL:G 2 P 1 0 0 1 Type Value Full Term 1 Living 1 Total 2 Past Encounters Encounter ID Performer Location Encounter Start Date Encounter Closed Date Diagnosis/Indication Diagnosis SNOMED-CT Code Diagnosis ICD10 Code Diagnosis Note [id number] DAMASO Ceron [facility] [address] [place] [address] 09/06/2022 15:17:59 09/07/2022 10:34:31 Body mass index 40+ - severely obese 413511328 Z68.43 NST non-reacti ve- BPP 8/8EFW 29.8%tile Gestation period, 36 weeks 71672031 Z3A.36 Routine an tenatal care 927905857 Z34.93 Transfer of care- no records of lab results, US reports, official ANANTH. Records request sent. at 37.2 weeks complicate d by morbid obesity (BMI 50).Antena igor surveillan ce with weekly NSTsPrevio us , no complicati ons.(+) tobacco use [id number] MAXIMINO MOSS DO [facility] h [address] [place] [address] 09/14/2022 16:03:57 09/15/2022 10:28:24 Routine care 602775622 Z34.93 Maternal o besity complicating , childbirth and the puerperium, antepartum 0668847888 07 O99.213 NST: reactive Gestation period, 38 weeks 60430649 Z3A.38 Health Concerns Section Related Observation LastModified by Organization Detai ls LastModified Time None Recorded Concern Status LastModified by Organization Details LastModified Time None Recorded Advance Directives Directive None Recorded Payers Encounter Date Sequence Insurance Name Policy Number Policy Saavedra Covered Member ID Saavedra Member ID Guarantor Name 09/06/2022 1 [facility] [id number] [facility] 09/14/2022 1 [facility] [id number] [facility] Notes Date Note Type Note Provider Name and Address Organization Details Recorded Time 09/06/2022 text/html Arielle presents for a MARYANN visit. She transferred care and this is her first visit with us. Some records in chart, but missing lab results (NOB and 28 week) and U/S reports. No ANANTH in records; per Arielle, her ANANTH is 09/25/2022. She denies problems or concerns. Morbid obesity and needs weekly surveillance. NST and US today DAMASO Ceron [facility] [place], [address], [facility] [employer] 09/08/2022 11:54:48 09/14/2022 text/html _Arielle is here today for a routine OB visit. She is currently at38.3 __weeks gestation. She has no complaints or questions. She is taking vitamins. She has felt movement. She denies the presence of vaginal bleed, leaking fluid, abdominal cramps, nausea, vomiting. There are no identifiable risk factors for pre-term labor. MAXIMINO MOSS DO [facility], [place], [address], [facility] [employer] 09/14/2022 22:08:14 OBGyn Episode Ob Episode Information Episode Created Date Number of Fetuses Patient Bloodtype Patient rh Status Prepregnancy Weight lbs Domestic Partner Domestic Partner Phone Father Name Merchandising Specialist Status 09/06/20 22 1 DELETED Fetus Data First Name Last Name Admitted to NICU Weight (g) Sex Living Outcome Pediatric Complications Fetus ID Race Codes Race Delivery Type [id number] Ananth Calculation Initial Ananth Date Initial Exam Date Initial Exam Provider Initial Ultrasound Date Last Menstrual Period Date Ultra Sound Weeks Gestation 08/18/2022 09/06/2022 12/12/2021 0 Eighteen To Twenty Week Ananth Update Ultra Sound Date Fundal Height At Umbil Quickening Date Ultra Sound Latest Weeks Gestation Final Ananth Confirmed By Final Ananth Confirmed Date Final Aannth Date Ultra Sound Latest Days Gestation 0 09/17/20 23 0 Menstrual History Last Menstrual Date Menses Monthly On Bcp Conception Prior Menses Frequency Hcg Plus Date Menarche Onset Age 0212/12/2021 Delivery Information Delivery Date Delivery Type Labor Anesthesia Weeks Gestation Incision Type Labor Labor Length Hrs Delivered By Post Complications Tubal Sterilization Discharge Date Comments Discharge Information Feeding Method Contraceptive Method Maternal HG B and HCT Levels Ob Episode Information Episode Created Date Number of Fetuses Patient Bloodtype Patient rh Status Prepregnancy Weight lbs Domestic Partner Domestic Partner Phone Father Name Merchandising Specialist Status 09/06/20 22 1 CLOSED Fetus Data First Name Last Name Admitted to NICU Weight (g) Sex Living Outcome Pediatric Complications Fetus ID Race Codes Race Delivery Type [id number] Problems Problem Notes Problem Name Start Date End Date Resolution Snomed Code Not e Maternal tobacco use 552904249 Morbid obesity 449222761 Group B Streptococcus carrier 6303090060437 Ananth Calculation Initial Ananth Date Initial Exam Date Initial Exam Provider Initial Ultrasound Date Last Menstrual Period Date Ultra Sound Weeks Gestation 09/25/2022 09/06/2022 0 Eighteen To Twenty Week Ananth Update Ultra Sound Date Fundal Height At Umbil Quickening Date Ultra Sound Latest Weeks Gestation Final Ananth Confirmed By Final Ananth Confirmed Date Final Ananth Date Ultra Sound Latest Days Gestation 0 [email or web address] 09/06/2022 09/25/20 22 0 Pre-kentrell Flowsheet Flowsheet Date 09/06/2022 López Score Blood Edema Fundus Height Fundus Units Glucose Ketones Leukocytes Nitrite Labor Signs Protein Cervic Dilation Cervic Effacement Cervic Station none none Type Weight in lbs Pre/Post Dialysis Refused With clothes 291.192960744676 BP Diastolic BP Location Tested BP Systolic BP Type 68 L arm 120 sitting Fetus Heart Rate Present A 130 Present Fetus Movement A Yes Comments Transfer of care- records re quest sentMorbid obesity- NST/BPP today- FW 29.8%tile Flowsheet Date 09/14/2022 López Score Blood Edema Fundus Height Fundus Units Glucose Ketones Leukocytes Nitrite Labor Signs Protein Cervic Dilation Cervic Effacement Cervic Station none Type Weight in lbs Pre/Post Dialysis Refused With clothes 299.394365210804 BP Diastolic BP Location Tested BP Systolic BP Type 60 122 sitting Fetus Heart Rate Present A 145 Fetus Movement A Yes Comments reactive NST. No ob complain ts. Will check cervix next week. Labor, SROM, Decreased FM precautions given. RTO in 1 week Menstrual History Last Menstrual Date Menses Monthly On Bcp Conception Prior Menses Frequency Hcg Plus Date Menarche Onset Age Delivery Information Delivery Date Delivery Type Labor Anesthesia Weeks Gestation Incision Type Labor Labor Length Hrs Delivered By Post Complications Tubal Sterilization Discharge Date Comments Discharge Information Feeding Method Contraceptive Method Maternal HG B and HCT Levels
--- OUTSIDE RECORDS SUMMARY | 2025-01-08 10:37 | XMS_ITS | Data Portability ---
Author Organization [facility] [place] Address [address] [facility] [place] [address] Care Team Providers Care Farm Loan Inspector Name Role Phone JULITA KEMP Curriculum And Instruction Specialist [phone] Assessment Encounter Date Assessment Date Assessment LastModified by Organization Details LastModified Time 06/24/2022 06/24/2022 KHUSHI Mckeon Not available 06/24/2022 23:15:46 08/19/2022 08/19/2022 26 yo female High-risk ? no Final NICHO: [id number] based on 2nd trimester US PMH: obesity Past history had to be induced 3 weeks early for non reassuring FHR complicated by: obesity, tobacco use, trich infection early in Rh: positive RhoGAM given: n/a : no labs: abnormal Abnormal lab: 1 hr GTT, nuswab positive for atopium + megasphera Plan for abnormal results if indicated: 3 hr GTT 2nd trimester US: normal Total weight gain: Pre- weight 260, today at 288.5 Recommended weight gain: BMI >30 - Flu vaccine: given today Covid vaccine: declined Tdap: UTD Vertex scan done: no GBS status: to be collected 35+ weeks Breast pump ordered: no MFM referral: yes Behavioral Health: no Follow-up: [address] Galvin on Aug, Dr. Morel on Aug -f/u on appetite next week. Will see how 3 hr GTT results. -start weekly NSTs, see below -will do 3 hr GTT on 11/8 AM, follow results -growth scan at 36 weeks, order placed -discussed ASA use - has not been taking consistently since beginning of -Encouraged healthy diet and walking for exercise - movement and kick counts reviewed -Pre-eclampsia and pre-term labor precautions reviewed -Reviewed labor precautions [email or web address] Not available 08/19/2022 15:31:24 08/31/2022 08/31/2023 yo female High-risk ? yes Final NICHO: [id number] based on 2nd trimester US PMH: Obesity complicated by: Morbid obesity, Excessive weight gain, tobacco use, & trich infection early in Rh: positive RhoGAM given: n/a : no labs: normal Abnormal lab: none 2nd trimester US: normal Total weight gain: 31lbs Recommended weight gain: BMI >30 09-05 Flu vaccine: UTD Covid vaccine: declined Tdap: UTD Vertex scan done: no GBS status: to be collected 36+ weeks Breast pump ordered: no MFM referral: yes Behavioral Health: no Follow-up: With [facility] for transfer of care - 09/06 - Continue weekly NST. Escorted to triage after clinic visit today (08/31) - F/U scheduled growth scan - movement and kick counts reviewed -Pre-eclampsia and pre-term labor precautions reviewed -Reviewed labor expectations (anesthesia, support people) and induction of labor -Reviewed labor precautions -Discussed contraception and reviewed sterilization consent if desired -Discussed choice of provider for pediatric care [email or web address] Not available 08/31/2022 20:34:09 Plan of Treatment Reminders Order Date Submit Date Provider Last Modified By Organization Details Last Modified Time Details Appointments None recorded . Lab urinalys is, dipstick 2021 022 [email or web address] In-Office Order, Internal Use Only DO Not Attach Compendium DO Not Attach Compendium, Do Not Delete/merge, [id number] 17:04:45 HIV 1 + 2, meaningf ul use set 2021 [facility], [address] [place] [address], [place], [address], 05:09:09 CBC w/ auto diff 2021 [facility], [address] [place] [address], [facility] [address], [place], [address], 05:09:08 RPR (rapid plasma reagin), serum 2021 [facility], [address] [facility], [facility], [place], [address], 05:09:09 vaginal pathogen s panel, ELA+prob e, vaginal fluid 2021 [facility], [address] [facility], [facility], [place], [address], 05:09:07 urinalys is, dipstick 2021 [email or web address] In-Office Order, Internal Use Only DO Not Attach Compendium DO Not Attach Compendium, Do Not Delete/merge, [id number] 12:15:17 glucose toleranc e test, post-50G , 1-hour 2021 [facility], [address] [facility], [facility], [place], [address], 08:19:05 Referral obstetri gustavo and gynecolo gist referral [address] [facility], [address] [place], [address], 09:19:12 maternal & medicine referral 2021 [facility], [address] [place], [address], 14:49:08 Procedures None recorded . Surgeries None recorded . Imaging non-stre ss test - weekly NST for obesity 2021 [email or web address] [facility], [address] [facility], [place], [address], 15:06:31 US, breast, unilater al 2021 [facility] (Radiology), [address] [facility] [place], [address], 13:22:14 Medication Orders Adult Low Dose Aspirin 81 mg tablet,d elayed release 2021 [email or web address] [id number], [address] [facility], [place], [place], [id number], 17:55:59 metronid azole 500 mg tablet [address] [id number], [address] [facility], [place], [place], [id number], 14:38:49 Adult Low Dose Aspirin 81 mg tablet,d elayed release 2021 022 [facility][id number], [address] [facility], [place], [place], [id number], 14:38:49 Patient TargetsNo targets recorded. Patient Instructions Encounter Date Encounter Id Patient Instructions Last Modified By Organization Details Last Modified Time 05/27/2022 [id number] Counseled pt on smoking cessation. Advised setting a quit date and removing all cigarettes, lighters, and matches from the home at that time. Consider starting patches/gum. Try to identify triggers ahead of time so you can be better prepared to cope with them. Not available 05/27/2022 12:55:43 08/05/2022 [id number] High-risk OB? {{no* yes}} EDC consistent with LMP?: {{yes* no LMP unsure}} - no record of the US in [place] but was documented in the NOB that she had a dating US at 6wks at the ER. EDC confirmed with: {{LMP 1st trimester US* 2nd trimester US 3rd trimester US}}- see above. Problem list UTD: {{yes* no}} Vitals reviewed and addressed if abnormal: {{yes* no}} Labs: {{ordered normal abnormal*}}- trichomonas Plan for abnormal results documented: {{yes* no}} s/p treatment, pending MANUEL Anatomy scan: {{ordered schedul ed normal* abnorm al}} Need for rhoGAM? {{no* yes}} 28 week lab (CBC, HIV, RPR, ABS, GTT): {{ordered* normal abnormal}} . 1hr GTT noted to be 138, which is elevated by our clinic standards. TdaP: {{UTD* declined n ot given}} Flu vaccine: {{UTD declined no t given*}} Covid vaccine: {{UTD declined* n ot given}} Need for MFM or OB consult? {{no yes*}} MFM co-manage due to obesity. Complete assessment and plan for all identified problems: {{yes* no}} Ev Mercado, PACHECO. Messaged the resident about ordering the 3hr gtt as well as finding the confirmatory dating ultrasound. There was mention of an US at 6 wks, but no records to confirm. Patient chart and medical record reviewed with second sign. Agree with Dr Mercado review as above, MD Alisson. [email or web address] Not available 08/06/2022 11:31:05 08/19/2022 [id number] High-risk OB? {{no yes*}} EDC consistent with LMP?: {{yes* no LMP unsure}} EDC confirmed with: {{LMP 1st trimester US 2nd trimester US* 3rd trimester US}} Problem list UTD: {{yes* no}} Vitals reviewed and addressed if abnormal: {{yes* no}} Labs: {{ordered normal abnormal*}} Plan for abnormal results documented: {{yes* no}} Anatomy scan: {{ordered schedul ed normal* abnorm al}} GBS: {{will collect at 36+ weeks* collected negative positive }} TdaP: {{UTD declined* n ot given}} Flu vaccine: {{UTD declined* n ot given}} Covid vaccine: {{UTD declined* n ot given}} Delivery plan documented: {{yes no*}} Need for MFM or OB consult? {{no yes*}} Complete assessment and plan for all identified problems: {{yes* no}} Cosigner Name: Marine Gerardo MD Morbid obesity, BMI at 49.5 at 34.1, gained 5 lbs since last visit, total weight gain at 28.5 lbs. Will likely exceed BMI of 50. NST to start weekly, will need US at 36w for growth/EFW. Will need to be referred to Ob and MFM per Dr. Dhillon, document faxed to [facility] and referral placed to [facility]. 2nd signer, reviewed by oversight. Per Dr Avalos pt did get influenza vaccine 08/19. Paulette Rich MD [email or web address] Not available 08/20/2022 14:49:51 08/31/2022 [id number] I was present an d available in the Family Medicine clinic to discuss this patient's care for the duration of the appointment. I agree with the resident's assessment and plan as documented with the following addendum: PT BMI is >50 - transferring care to OB. Has appointment with OB on 09/06. Pt declines GBS swab at today's visit. Vertex scan deferred. Will need to initiate antinatal testing. Dr. Royer Milton MD Faculty Physician, [facility] agree- Kacie [email or web address] Not available 09/01/2022 17:56:04 Reason for Referral Maternal & Medicine Re ferral for Morbid obesity BMI 50 Referring Physician: Julita Kemp, Lamp Wirer, Encounter Date: 05/27/2022 [facility] Gynecologis t Referral for Morbid obesity Referring Physician: Blanca Avalos, Lamp Wirer, Encounter Date: 08/19/2022 Results Created Date Observation Date Name Description Value Unit Range Abnormal Flag Note LastModifiedBy Organization Detail LastModifiedTime 04/29/20 22 04/29/2022 AFP, SERUM , OPEN SPINA BIFID A comment: SHERWIN dial , Ph.D. , [facility] Dire tor Refer ences : Avail able Upon Reque st. Multi ples Of Media n Cutof fs For AFP Lucien tions Singl eton 2.5 Black 2.8 IDD 2.0 Twins 4.5 Abbre viati on Defin ition s IDD - Insul in Dep Diabe herman OSBR - Open Spina Bifid a Risk For furth er inqui akin conta ct [facility] [place] ics Servi blayne at [phone]. This test was glenn beaulieu and its perfo bassem e anum cteri stics deter mined by [facility]. It has not been clear ed or appro kevin by the Food and Drug Admin istra tion. Not Available [facility] ([facility]) [address] [place], [address], 05/01/2022 03:08:05 04/29/20 22 04/30/2022 AFP, SERUM , OPEN SPINA BIFID A results REPORT Not Available [facility] ([facility]) [address] [place], [address], 05/01/2022 03:08:05 04/29/20 22 04/30/2022 AFP, SERUM , OPEN SPINA BIFID A test results: *SCREE N NEGATI VE* Not Available [facility] ([facility]) [address] [facility], [place], [address], 05/01/2022 03:08:05 04/29/20 22 04/30/2022 AFP, SERUM , OPEN SPINA BIFID A gest. age on collection date 18.1 weeks Not Available [facility] ([facility]) [address] [place], [address], 05/01/2022 03:08:05 04/29/20 22 04/30/2022 AFP, SERUM , OPEN SPINA BIFID A gestat. age based on NICHO 09/29 Recal culat ions are not recom christiana d when gesta saskia l datin g by LMP and ultra sound are withi n 10 days. Not Available [facility] ([facility]) [address] [place], [address], 05/01/2022 03:08:05 04/29/20 22 04/30/2022 AFP, SERUM , OPEN SPINA BIFID A [age]o [age] Not Available [facility] ([facility]) [address] [place], [address], 05/01/2022 03:08:05 04/29/20 22 04/30/2022 AFP, SERUM , OPEN SPINA BIFID A race OTHER Not Available [facility] ([facility]) [address] [place], [address], 05/01/2022 03:08:05 04/29/20 22 04/30/2022 AFP, SERUM , OPEN SPINA BIFID A weight 276 lbs Not Available [facility] ([facility]) [address] [place], [address], 05/01/2022 03:08:05 04/29/20 22 04/30/2022 AFP, SERUM , OPEN SPINA BIFID A insulin dep diabetes NO Not Available [facility] ([facility]) [address] [place], [address], 05/01/2022 03:08:05 04/29/20 22 04/30/2022 AFP, SERUM , OPEN SPINA BIFID A multiple gestation NO Not Available [facility] ([facility]) [address] [place], [address], 05/01/2022 03:08:05 04/29/20 22 04/30/2022 AFP, SERUM , OPEN SPINA BIFID A AFP value 51.0 NG/mL Not Available [facility] ([facility]) [address] [place], [address], 05/01/2022 03:08:05 04/29/20 22 04/30/2022 AFP, SERUM , OPEN SPINA BIFID A AFP MOM 1.57 Not Available [facility] ([facility]) [address] [place], [address], 05/01/2022 03:08:05 04/29/20 22 04/30/2022 AFP, SERUM , OPEN SPINA BIFID A OSBR risk 1 in 2270 Not Available [facility] ([facility]) [address] [facility], [place], [address], 05/01/2022 03:08:05 04/29/20 22 04/30/2022 AFP, SERUM , OPEN SPINA BIFID A interpretati on COMMEN T Inter preta tion: Scree n Negat efrain This resul t is scree n negat efrain for OSB. The AFP MoM calcu lated is based on the gesta saskia l age provi ded. MS-AF P can ident aubrie up to 80% of open neura l tube defec ts. Close d neura l tube defec ts and some open defec ts may not be detec shanna by this test. This test does not scree n for Down Syndr ome or Triso my 18. If scree александр for Down Syndr ome or Triso my 18 is ivonne ed, conta ct [facility] ic Custo alysa Servi blayne to discu ss avail able optio ns. The [facility] can Colle ge of Obste trici ans and Gynec ologi sts recom mends amnio cente sis be offer ed to women age 35 and older . Not Available [facility] ([facility]) [address] [facility], [place], [address], 05/01/2022 03:08:05 04/29/20 22 05/01/2022 AFP, SERUM , OPEN SPINA BIFID A pdf . Not Available [facility] ([facility]) [address] [facility], [place], [address], 05/01/2022 03:08:05 05/27/20 22 05/27/2022 urina lysis , dipst ick Leukocytes Negati ve Not Available In-Office Order Internal Use Only DO Not Attach Compendium DO Not Attach Compendium, Do Not Delete/merge, [id number] 05/27/2022 11:34:17 05/27/20 22 05/27/2022 urina lysis , dipst ick Nitrite negati ve Not Available In-Office Order Internal Use Only DO Not Attach Compendium DO Not Attach Compendium, Do Not Delete/merge, [id number] 05/27/2022 11:34:17 05/27/20 22 05/27/2022 urina lysis , dipst ick Urobilinogen .2 Not Available In-Of fice Order Internal Use Only DO Not Attach Compendium DO Not Attach Compendium, Do Not Delete/merge, 05/27/2022 11:34:17 05/27/20 22 05/27/2022 urina lysis , dipst ick Protein Negati ve Not Available In-Office Order Internal Use Only DO Not Attach Compendium DO Not Attach Compendium, Do Not Delete/merge, 05/27/2022 11:34:17 05/27/20 22 05/27/2022 urina lysis , dipst ick pH 7.0 Not Available In-Office Order Internal Use Only DO Not Attach Compendium DO Not Attach Compendium, Do Not Delete/merge, 05/27/2022 11:34:17 05/27/20 22 05/27/2022 urina lysis , dipst ick Blood Negati ve Not Available In-Office Order Internal Use Only DO Not Attach Compendium DO Not Attach Compendium, Do Not Delete/merge, 05/27/2022 11:34:17 05/27/20 22 05/27/2022 urina lysis , dipst ick Specific [place] 1.025 Not Available In-Off ice Order Internal Use Only DO Not Attach Compendium DO Not Attach Compendium, Do Not Delete/merge, 05/27/2022 11:34:17 05/27/20 22 05/27/2022 urina lysis , dipst ick Ketone Negati ve Not Available In-Office Order Internal Use Only DO Not Attach Compendium DO Not Attach Compendium, Do Not Delete/merge, 05/27/2022 11:34:17 05/27/20 22 05/27/2022 urina lysis , dipst ick Bilirubin Negati ve Not Available In-Office Order Internal Use Only DO Not Attach Compendium DO Not Attach Compendium, Do Not Delete/merge, 05/27/2022 11:34:17 05/27/20 22 05/27/2022 urina lysis , dipst ick Glucose Negati ve Not Available In-Office Order Internal Use Only DO Not Attach Compendium DO Not Attach Compendium, Do Not Delete/merge, [id number] 05/27/2022 11:34:17 06/22/20 22 06/23/2022 GEST. DIABE HERMAN 1-HR SCREE N gestational diabetes screen 138 mg/dL 65-139 Accor ding to ADA, a gluco se thres hold of >139 mg/dL after 50-gr am load ident ifies appro ximat adina 80% of women with gesta saskia l diabe herman melli tus, while the sensi tivit y is furth er incre ased to appro ximat adina 90% by a thres hold of >129 mg/dL . Not Available [facility] ([facility]) [address] [place], [address], 06/23/2022 08:19:05 08/05/20 22 08/09/2022 NUSWA B VAGIN ITIS PLUS (VG+) atopobium vaginae High - 2 score abnormal Not Available [facility] ([facility]) [address] [place], [address], 08/10/2022 05:09:07 08/05/20 22 08/09/2022 NUSWA B VAGIN ITIS PLUS (VG+) bvab 2 Low - 0 score Not Available [facility] ([facility]) [address] [place], [address], 08/10/2022 05:09:07 08/05/20 22 08/09/2022 NUSWA B VAGIN ITIS PLUS (VG+) megasphaera 1 High - 2 score abnormal Calcu late total score by woody aragon the 3 indiv idual bacte rial vagin osis (BV) marke r score s toget her. Total score is inter prete d as follo ws: Total score 0-1: Indic ates the absen ce of BV. Total score 2: Indet ermin ate for BV. Addit ional clini cheyanne data shoul d be evalu ated to estab odalys a diagn osis. Total score 3-6: Indic ates the prese nce of BV. This test was glenn beaulieu and its perfo bassem e anum hessri stics deter mined by [facility]. It has not been clear ed or appro kevin by the Food and Drug Admin istra tion. Not Available [facility] ([facility]) [address] [place], [address], 08/10/2022 05:09:07 08/05/20 22 08/09/2022 NUSWA B VAGIN ITIS PLUS (VG+) lyly albicans, ELA Negati ve negati ve Not Available [facility] ([facility]) [address] [place], [address], 08/10/2022 05:09:07 08/05/2008/09/2022 NUSWA B VAGIN ITIS PLUS (VG+) lyly glabrata, ELA Negati ve negati ve Not Available [facility] ([facility]) [address] [place], [address], 08/10/2022 05:09:07 08/05/2008/10/2022 NUSWA B VAGIN ITIS PLUS (VG+) trich vag by ELA Negati ve negati ve Not Available [facility] ([facility]) [address] [place], [address], 08/10/2022 05:09:07 08/05/2008/10/2022 NUSWA B VAGIN ITIS PLUS (VG+) chlamydia trachomatis, ELA Negati ve negati ve Not Available [facility] ([facility]) [address] [place], [address], 08/10/2022 05:09:07 08/05/20 22 08/10/2022 NUSWA B VAGIN ITIS PLUS (VG+) neisseria gonorrhoeae, ELA Negati ve negati ve Not Available [facility] ([facility]) [address] [place], [address], 08/10/2022 05:09:07 08/05/20 22 08/06/2022 CBC WITH DIFFE RENTI AL/PL ATELE T WBC 7.1 x10e3 /uL 3.4-10 .8 Not Available [facility] ([facility]) [address] [facility], [place], [address], 08/10/2022 05:09:08 08/05/20 22 08/06/2022 CBC WITH DIFFE RENTI AL/PL ATELE T RBC 3.78 x10e6 /uL 3.77-5 .28 Not Available [facility] ([facility]) [address] [place], [address], 08/10/2022 05:09:08 08/05/20 22 08/06/2022 CBC WITH DIFFE RENTI AL/PL ATELE T hemoglobin 11.4 g/dL 11.1-1 5.9 Not Available [facility] ([facility]) [address] [facility], [place], [address], 08/10/2022 05:09:08 08/05/20 22 08/06/2022 CBC WITH DIFFE RENTI AL/PL ATELE T hematocrit 34.1 % 34.0-4 6.6 Not Available [facility] ([facility]) [address] [place], [address], 08/10/2022 05:09:08 08/05/20 22 08/06/2022 CBC WITH DIFFE RENTI AL/PL ATELE T MCV 90 fL 79-97 Not Available [facility] ([facility]) [address] [place], [address], 08/10/2022 05:09:08 08/05/20 22 08/06/2022 CBC WITH DIFFE RENTI AL/PL ATELE T MCH 30.2 pg 26.6-3 3.0 Not Available [facility] ([facility]) [address] [place], [address], 08/10/2022 05:09:08 08/05/20 22 08/06/2022 CBC WITH DIFFE RENTI AL/PL ATELE T MCHC 33.4 g/dL 31.5-3 5.7 Not Available [facility] ([facility]) [address] [facility], [place], [address], 08/10/2022 05:09:08 08/05/20 22 08/06/2022 CBC WITH DIFFE RENTI AL/PL ATELE T RDW 11.9 % 11.7-1 5.4 Not Available [facility] ([facility]) [address] [facility], [place], [address], 08/10/2022 05:09:08 08/05/20 22 08/06/2022 CBC WITH DIFFE RENTI AL/PL ATELE T platelets 332 x10e3 /uL 150-45 0 Not Available [facility] ([facility]) [address] [facility], [place], [address], 08/10/2022 05:09:08 08/05/20 22 08/06/2022 CBC WITH DIFFE RENTI AL/PL ATELE T neutrophils 69 % notest ab. Not Available [facility] ([facility]) [address] [facility], [place], [address], 08/10/2022 05:09:08 08/05/20 22 08/06/2022 CBC WITH DIFFE RENTI AL/PL ATELE T lymphs 21 % notest ab. Not Available [facility] ([facility]) [address] [facility], [place], [address], 08/10/2022 05:09:08 08/05/20 22 08/06/2022 CBC WITH DIFFE RENTI AL/PL ATELE T monocytes 7 % notest ab. Not Available [facility] ([facility]) [address] [facility], [place], [address], 08/10/2022 05:09:08 08/05/20 22 08/06/2022 CBC WITH DIFFE RENTI AL/PL ATELE T eos 2 % notest ab. Not Available [facility] ([facility]) [address] [place], [address], 08/10/2022 05:09:08 08/05/20 22 08/06/2022 CBC WITH DIFFE RENTI AL/PL ATELE T basos 0 % notest ab. Not Available [facility] ([facility]) [address] [place], [address], 08/10/2022 05:09:08 08/05/20 22 08/06/2022 CBC WITH DIFFE RENTI AL/PL ATELE T neutrophils (absolute) 5.0 x10e3 /uL 1.4-7. 0 Not Available [facility] ([facility]) [address] [place], [address], 08/10/2022 05:09:08 08/05/20 22 08/06/2022 CBC WITH DIFFE RENTI AL/PL ATELE T lymphs (absolute) 1.5 x10e3 /uL 0.7-3. 1 Not Available [facility] ([facility]) [address] [place], [address], 08/10/2022 05:09:08 08/05/20 22 08/06/2022 CBC WITH DIFFE RENTI AL/PL ATELE T monocytes(ab solute) 0.5 x10e3 /uL 0.1-0. 9 Not Available [facility] ([facility]) [address] [place], [address], 08/10/2022 05:09:08 08/05/20 22 08/06/2022 CBC WITH DIFFE RENTI AL/PL ATELE T eos (absolute) 0.1 x10e3 /uL 0.0-0. 4 Not Available [facility] ([facility]) [address] [place], [address], 08/10/2022 05:09:08 08/05/20 22 08/06/2022 CBC WITH DIFFE RENTI AL/PL ATELE T baso (absolute) 0.0 x10e3 /uL 0.0-0. 2 Not Available [facility] ([facility]) [address] [facility], [place], [address], 08/10/2022 05:09:08 08/05/20 22 08/06/2022 CBC WITH DIFFE RENTI AL/PL ATELE T immature granulocytes 1 % notest ab. Not Available [facility] ([facility]) [address] [facility], [place], [address], 08/10/2022 05:09:08 08/05/20 22 08/06/2022 CBC WITH DIFFE RENTI AL/PL ATELE T immature grans (abs) 0.1 x10e3 /uL 0.0-0. 1 Not Available [facility] ([facility]) [address] [facility], [place], [address], 08/10/2022 05:09:08 08/05/20 22 08/06/2022 RPR, RFX QN RPR/C ONFIR M TP RPR Non Reacti ve nonrea ctive Not Available [facility] ([facility]) [address] [facility], [place], [address], 08/10/2022 05:09:09 08/05/20 22 08/06/2022 HIV AB/P2 4 AG WITH REFLE X HIV Ab/P24 Ag screen Non Reacti ve nonrea ctive HIV Negat efrain HIV-1 /HIV- 2 antib odies and HIV-1 p24 antig en were NOT detec shanna. There is no labor atory evide nce of HIV infec tion. Not Available [facility] ([facility]) [address] [facility], [place], [address], 08/10/2022 05:09:09 08/19/20 22 08/19/2022 urina lysis , dipst ick Leukocytes Negati ve Not Available In-Office Order Internal Use Only DO Not Attach Compendium DO Not Attach Compendium, Do Not Delete/merge, [id number] 08/19/2022 15:15:57 08/19/20 22 08/19/2022 urina lysis , dipst ick Nitrite negati ve Not Available In-Office Order Internal Use Only DO Not Attach Compendium DO Not Attach Compendium, Do Not Delete/merge, [id number] 08/19/2022 15:15:57 08/19/20 22 08/19/2022 urina lysis , dipst ick Urobilinogen 2 Not Available In-Of fice Order Internal Use Only DO Not Attach Compendium DO Not Attach Compendium, Do Not Delete/merge, 08/19/2022 15:15:57 08/19/20 22 08/19/2022 urina lysis , dipst ick Protein Negati ve Not Available In-Office Order Internal Use Only DO Not Attach Compendium DO Not Attach Compendium, Do Not Delete/merge, [id number] 08/19/2022 15:15:57 08/19/20 22 08/19/2022 urina lysis , dipst ick pH 6.5 Not Available In-Office Order Internal Use Only DO Not Attach Compendium DO Not Attach Compendium, Do Not Delete/merge, [id number] 08/19/2022 15:15:57 08/19/20 22 08/19/2022 urina lysis , dipst ick Blood Negati ve Not Available In-Office Order Internal Use Only DO Not Attach Compendium DO Not Attach Compendium, Do Not Delete/merge, [id number] 08/19/2022 15:15:57 08/19/20 22 08/19/2022 urina lysis , dipst ick Specific [place] 1.010 Not Available In-Off ice Order Internal Use Only DO Not Attach Compendium DO Not Attach Compendium, Do Not Delete/merge, [id number] 08/19/2022 15:15:57 08/19/20 22 08/19/2022 urina lysis , dipst ick Ketone Negati ve Not Available In-Office Order Internal Use Only DO Not Attach Compendium DO Not Attach Compendium, Do Not Delete/merge, [id number] 08/19/2022 15:15:57 08/19/20 22 08/19/2022 urina lysis , dipst ick Bilirubin Negati ve Not Available In-Office Order Internal Use Only DO Not Attach Compendium DO Not Attach Compendium, Do Not Delete/merge, [id number] 08/19/2022 15:15:57 08/19/20 22 08/19/2022 urina lysis , dipst ick Glucose Negati ve Not Available In-Office Order Internal Use Only DO Not Attach Compendium DO Not Attach Compendium, Do Not Delete/merge, [id number] 08/19/2022 15:15:57 08/19/20 22 08/19/2022 urina lysis , dipst ick Appearance Clear Not Available In-Offi ce Order Internal Use Only DO Not Attach Compendium DO Not Attach Compendium, Do Not Delete/merge, [id number] 08/19/2022 15:15:57 08/19/20 22 08/19/2022 urina lysis , dipst ick Color Yellow Not Available In-Office Order Internal Use Only DO Not Attach Compendium DO Not Attach Compendium, Do Not Delete/merge, [id number] 08/19/2022 15:15:57 08/26/20 22 08/26/2022 GESTA SASKIA L 3 HOUR GTT-N DDGC note: Commen t Diagn osis of gesta saskia l diabe herman requi res that two or more high thres holds are excee ded. The laura ance test is based on a 100 gm oral gluco se chall enge at 24 - 28 weeks of gesta tion. Not Available [facility] ([facility]) [address] [facility], [place], [address], 08/27/2022 09:13:00 08/26/2008/27/2022 GESTA SASKIA L 3 HOUR GTT-N DDGC glucose - fasting 78 mg/dL 65-104 Not Available [facility] ([facility]) [address] [facility], [place], [address], 08/27/2022 09:13:00 08/26/20 22 08/27/2022 GESTA SASKIA L 3 HOUR GTT-N DDGC glucose - 1 hour 160 mg/dL 65-189 Not Available [facility] ([facility]) [address] [facility], [place], [address], 08/27/2022 09:13:00 08/26/20 22 08/27/2022 GESTA SASKIA L 3 HOUR GTT-N DDGC glucose - 2 hour 130 mg/dL 65-164 Not Available [facility] ([facility]) [address] [facility], [place], [address], 08/27/2022 09:13:00 08/26/20 22 08/27/2022 GESTA SASKIA L 3 HOUR GTT-N DDGC glucose - 3 hour 95 mg/dL 65-144 Not Available [facility] ([facility]) [address] [place], [address], 08/27/2022 09:13:00 04/30/20 22 04/29/2022 US, breas t, unila teral No observ ation record ed. [address] [place] [address], [address], 05/27/2022 11:37:34 05/18/20 22 05/18/2022 US, obste tric, mater nal evalu ation + anato my No observ ation record ed. [address] [facility] [address] [place] [address], [address], 05/27/2022 11:37:34 05/19/20 22 05/18/2022 US, obste tric, mater nal evalu ation + anato my No observ ation record ed. [address] [facility] [address] [place] [address], [address], 05/27/2022 11:37:34 06/16/20 22 06/16/2022 US, obste tric, mater nal evalu ation + anato my No observ ation record ed. [email or web address] [facility] [address] [place], [address], 06/24/2022 11:14:13 06/17/20 22 06/16/2022 US, breas t, unila teral No observ ation record ed. [email or web address] Sloan Martinez (Radiology) [address] [facility] [place], [address], 06/24/2022 11:14:12 07/16/20 22 07/16/2022 US, obste tric, mater nal evalu ation + anato my No observ ation record ed. agnes [facility] [address] [place], [address], 07/16/2022 10:11:53 07/21/20 22 07/16/2022 US, obste tric, mater nal evalu ation + anato my No observ ation record ed. [email or web address] [facility] [address] [place], [address], 07/21/2022 14:12:23 Result Notes None recorded. Problems Name Problem SNOMED Code Status Onset Date Resolution Date Notes Provider Name and Address Organization Details Recorded Time Pregnanc y 84466849 Completed 201907/22/2020 Janee Prado MD Attn: Alo aragon,[address] [place], [address], [place] [facility] 3 00:34:05 Morbid obesity 356241440 Completed Luisa Denney [place] null, [place] [facility] 0 14:19:38 Smoker 50888593 Completed Luisa Denney [place], [place] [facility] 0 14:19:38 Pregnanc y 60755956 Completed 202110/20/2022 Janee Prado MD Attn: Alo aragon,[address] [place], [address], [place] [facility] 3 00:34:05 Obesity 747154306 Completed Starting BMI 45.7. Limit weight gain to <20#. Early OGTT. Janee Prado MD Attn: Laciesherley aragon,[address] [facility], [place], [address], [place] [facility] 3 00:33:58 Smoker 94813205 Completed Cessation discussed Janee Prado MD Attn: Accountsherley aragon,[address] [facility], [place], [address], [place] [facility] 3 00:33:58 Trichomo nal vaginiti s in pregnanc y 706579979 Active 2021 Positive on NOB, MANUEL 5 negative Janee Prado MD Attn: Laciesherley aragon,[address] [place], [address], [place] [facility] 3 00:33:58 Trichomo nal vaginiti s in pregnanc y 478935417 Completed 2021 Positive on NOB, MANUEL 25 negative Janee Prado MD Attn: Laciesherley aragon,[address] [place], [address], [place] [facility] 3 00:33:58 Low lying placenta 472822472 Completed US 04/13 with anterior placenta encroachi ng on internal os, RESOLVED US 05/18/22 Janee Prado MD Attn: Laciesherley aragon,[address] [place], [address], [place] [facility] 3 00:33:58 Abscess of breast 06222904 Completed 2021 s/p clinda Janee Prado MD Attn: Laciesherley aragon,[address] [place], [address], [place] [facility] 3 00:33:58 Abscess of breast 83378776 Active 2021 s/p clinda Janee Prado MD Attn: Alo margo,[address] [place], [address], [place] [facility] 3 00:33:58 Excessiv e weight gain 860611187 Completed 2021 Janee Prado MD Attn: Alo aragon,[address] [facility], [place], [address], [place] [facility] 3 00:33:58 Problem Notes None recorded. Procedures Surgical History Date Name Laterality Status Provider Name and Address Organization Details Recorded Time 03/05/2020 Date of Last Pap Smear completed Luisa [place], [place] [facility] 04/02/2020 09:42:47 Imaging Results Imaging Date Name Status LastModified by Organiz ation Details LastModified Time 04/29/2022 US, breast, unilateral completed [email or web address] [address] [place] [address], [address], 05/27/2022 11:37:34 05/18/2022 US, obstetric, maternal evaluation + [email or web address] [address], [address], 05/27/2022 11:37:34 05/18/2022 US, obstetric, maternal evaluation + anatomy completed [address] [facility] [address], [address], 05/27/2022 11:37:34 06/16/2022 US, obstetric, maternal evaluation + anatomy completed [email or web address] [facility] [address], [address], 06/24/2022 11:14:13 06/16/2022 US, breast, unilateral completed [email or web address] Sloan Martinez (Radiology) [place], [address], 06/24/2022 11:14:12 07/16/2022 US, obstetric, maternal evaluation + [email or web address] [address], [address], 07/16/2022 10:11:53 07/16/2022 US, obstetric, maternal evaluation + anatomy completed [email or web address] [facility] [address] [place] [address], [address], 07/21/2022 14:12:23 Procedure Notes None recorded. Medical Equipment None Reported. Allergies Allergen ID Allergen Name Allergen Category Reaction Reaction Severity Criticality Documentation Date Start Date Code Code System Note Provider Name and Address Organization Details Recorded Time 399455 Keflex medicatio n hives Not available Not available 03/05/2020 7 RxNorm Not Available Not Available Not Available Medications Name Sig Start Date Stop Date Status Note LastModified by Organization Details LastModified Time clindamycin HCl 300 mg capsule TAKE 1 CAPSULE BY MOUTH THREE TIMES A DAY FOR 7 DAYS 06/19 completed Not Available Not Available Not Available cetirizine 10 mg tablet TAKE 1 TABLET BY MOUTH EVERY DAY 02/10 completed Not Available Not Available Not Available ibuprofen 800 mg tablet TAKE 1 TABLET BY MOUTH THREE TIMES DAILY NEEDED FOR PAIN 02/10 completed Not Available Not Available Not Available fluconazole 150 mg tablet Take 1 tablet every day by oral route for 1 day. 2021 active Not Available Not Available Not Avai lable metronidazo le 0.75 % (37.5 mg/5 gram) vaginal gel Insert 1 applicato rful twice a day by vaginal route as directed for 5 days. active Not Available Not Available No t Available metronidazo le 500 mg tablet Take 1 tablet twice a day by oral route for 7 days. 2021 active Not Available Not Available Not Avai lable Vitamin tablet Take 1 tablet every day by oral route as directed. 2021 active Not Available Not Available Not Avai lable Zoloft 50 mg tablet Take 1 tablet every day by oral route. 04/30 completed Not Available Not Available Not Available ibuprofen 600 mg tablet TAKE 1 TABLET BY MOUTH EVERY 6 HOURS NEEDED FOR PAIN 02/10 completed Not Available Not Available Not Available Adult Low Dose Aspirin 81 mg tablet,nohemy yed release Take 1 tablet every day by oral route. 2021 active Not Available Not Available Not Avai lable active OTC ones Not Available Not Available Not Available Mucinex 1,200 mg tablet, extended release TAKE 1 TABLET BY MOUTH TWICE DAILY 02/10 completed Not Available Not Available Not Available 28 mg iron-800 mcg tablet active Not Available Not Available N ot Available Gummies 02/10 completed Not Available Not Available Not Available Vitals Date Recorded Body height Systolic blood pressure Diastolic blood pressure Provider Name and Address Organization Details Last Updated DateTime 05/27/2022 162.56 cm 114 mm[Hg] 76 mm[Hg] Renée Xavier MA [facility] 05/27/2022 11:05:57 Date Recorded Body mass index (BMI) Body weight Provider Name and Address Organization Details Last Updated DateTime 05/27/2022 50.8 kg/m2 192067.90756 g ANDRE GARNER Attn: Accounting,[address] [place], [address], [facility] 05/27/2022 12:01:22 Date Recorded Body height Body mass index (BMI) Systolic blood pressure Diastolic blood pressure Provider Name and Address Organization Details Last Updated DateTime 06/24/2022 162.56 cm 48.7 kg/m2 100 mm[Hg] 68 mm[Hg] Renée Xavier MA [facility] 06/24/2022 11:03:06 Date Recorded Body weight Provider Name an d Address Organization Details Last Updated DateTime 06/24/2022 946270.28310 g ANDRE GARNER Attn: Accounting,[address] [place], [address], [facility] 07/07/2022 18:14:14 Date Recorded Body height Body mass index (BMI) Body temperature Oxygen saturation Oxygen saturation in Arterial blood by Pulse oximetry Heart rate Systolic blood pressure Diastolic blood pressure Provider Name and Address Organization Details Last Updated DateTime 162.56 cm 48.7 kg/m2 97.6 [degF] 98 % 98 % 104 /min 123 mm[Hg] 80 mm[Hg] Ellyn Wilson MA [facility] 14:34:57 Date Recorded Body weight Provider Name an d Address Organization Details Last Updated DateTime 08/05/2022 487549.922330 g Nery Seymour Attn: Accounting,[address] [place], [address], [facility] 08/05/2022 14:42:14 Date Recorded Body height Body mass index (BMI) Systolic blood pressure Diastolic blood pressure Provider Name and Address Organization Details Last Updated DateTime 08/19/2022 162.56 cm 49.5 kg/m2 122 mm[Hg] 74 mm[Hg] Shreya Dong MA [facility] 08/19/2022 14:16:51 Date Recorded Body weight Provider Name an d Address Organization Details Last Updated DateTime 08/19/2022 710320.235071 g Blanca Avalos [facility] 08/19/20 22 15:08:23 Date Recorded Body height Body mass index (BMI) Body temperature Heart rate Oxygen saturation Oxygen saturation in Arterial blood by Pulse oximetry Systolic blood pressure Diastolic blood pressure Provider Name and Address Organization Details Last Updated DateTime 162.56 cm 50 kg/m2 97.7 [degF] 120 /min 96 % 96 % 133 mm[Hg] 79 mm[Hg] Ellyn Wilson MA [facility] 2 15:26:39 Date Recorded Body weight Heart rate Provider Name and Address Organization Details Last Updated DateTime 08/31/2022 682573.030495 g 85 /min JAQUELINE PETE MD Attn: Accounting,[address] [place], [address], [facility] 08/31/2022 16:01:06 Social History Question Answer Notes LastModified by Organizat ion Details LastModified Time Tobacco Smoking Status Current Every Day Smoker Luisa Denney MA null, [facility] 03/05/2020 09:48:42 Do You Have An Advance Directive? No Information not available 02/10/2022 What Is Your Level Of Alcohol Consumption? None Information not available 02/10/2022 If You Are , What Was Your Level Of Alcohol Consumption Prior To ? None Information not available 03/05/2020 Is Blood Transfusion Acceptable In An Emergency? Yes Information not available 03/05/2020 What Is Your Level Of Caffeine Consumption? Moderate Information not available 03/05/2020 Live With Cats/exposure To Cat Litter No Information not available 03/05/2020 How Much Tobacco Do You Chew? None Information not available 03/05/2020 Are You Currently Employed? Yes Information not available 03/05/2020 What Type Of Diet Are You Following? REGULAR Information not available 03/05/2020 Which Illicit Or Recreational Drugs Have You Used? Denies Information not available 03/05/2020 Do You Or Have You Ever Used E-cigarettes Or Vape? 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 With Others Information not available 03/05/2020 Marital Status Single Informatio n not available 03/05/2020 What Was The Date Of Your Most Recent Tobacco Screening? 08/31/2022 [email or web address] Information not available 08/31/2022 How Many Children Do You Have? 0 Information not available 03/05/2020 What Is Your Relationship Status? Single Information not available 02/10/2022 Seat Belts Used Routinely Yes Information not available 03/05/2020 Are You Sexually Active? Yes Information not available 03/05/2020 Do You Have Smoke And Carbon Monoxide Detectors In Your Home? Yes Information not available 03/05/2020 At What Age Did You Start Smoking Tobacco? 17 Information not available 03/05/2020 Are You Passively Exposed To Smoke? No Information not available 03/05/2020 Do You Or Have You Ever Used Smokeless Tobacco? Never Used Smokeless Tobacco Information not available 03/05/2020 How Much Tobacco Do You Smoke? 0.25 PPD 02/10/22 2-3 A Day Information not available 02/10/2022 Smoking Pre- Yes Information not available 03/05/2020 General Stress Level Medium Information not available 03/05/2020 Do You Use Any Illicit Or Recreational Drugs? No Information not available 02/10/2022 Has Tobacco Cessation Counseling Been Provided? Yes Information not available 02/10/2022 On What Date Was Tobacco Cessation Counseling Provided? 06/24/2022 [email or web address] Information not available 06/24/2022 How Many Years Have You Smoked Tobacco? 7 Information not available 03/05/2020 Do You Or Have You Ever Used Any Other Forms Of Tobacco Or Nicotine? No Information not available 02/10/2022 Sex: Unknown Functional Status Question Answer Note LastModified by Organization D etails LastModified Time What is your exercise level? None Information not available 03/05/2020 Mental Status None recorded. Family History Relationship Description Onset Age of this Age Resolved Age Notes LastModified by Organization Details LastModified Time Mother Diabetes mellitus [email or web address] Not available 03/05 09:47:06 Paternal Grandmother Malignant tumor of breast 60 [email or web address] Not available 03/05 09:48:00 Medical History Condition Response Other N High Blood Pressure N Breast Cancer N Thyroid Problems N Kidney or Bladder Problems N GI Problems N Depression N Blood Clots N Lung Disease N Acne Y Eating Disorder N Breast Problem N Anemia N Anesthesia Complications N Headaches/Migraines N Anxiety Disorder N Diabetes N Ovarian Cancer N Muscle, Joint, or Bone Problems N Blood Transfusions N Seizures/Epilepsy N Polyps N Infertility N Acid Reflux (GERD) N Cancer N Abuse/Domestic Violence N Asthma N Endometriosis N High Cholesterol N Hepatitis N Liver Disease N Heart Disease N Pre-Eclampsia N Osteoporosis N Gynecological History Statement/Question Response Abnormal Pap Y Date of LMP 12/12/2021 STIs/STDs Y HPV Vaccine N Age at Menarche 10 Current Control Method Age at First Child 24 Sexually Active? Y Menses Monthly N Date of Last Pap Smear 03/05/2020 Sexual Problems? N LMP Unknown Obstetrics History GPAL:G 2 P 1 0 0 1 Type Value Multiple Births 0 Full Term 1 Induced 0 Spontaneous 0 Premature 0 Living 1 Ectopics 0 Total 2 Immunizations Vaccine Type Date Status Note Provider Nam e and Address Organization Details Recorded Time Tdap 06/04/2020 completed Millie taylor [place] - [facility] 06/04/2020 09:37:12 Influenza, split virus, quadrivalent, PF 08/19/2022 completed Cornelia Barlow RN [facility], [facility] 08/25/2022 11:54:36 Past Encounters Encounter ID Performer Location Encounter Start Date Encounter Closed Date Diagnosis/Indication Diagnosis SNOMED-CT Code Diagnosis ICD10 Code Diagnosis Note [id number] [facility] ([employer]) [address] [place] [address] 03/05/2020 09:34:10 03/06/2020 06:55:06 Routine care 932989079 Z34.02 See ACOG form [id number] [facility] ([employer] DR[employer]) [address] [place] [address] 04/02/2020 09:29:34 04/03/2020 06:28:21 Routine care 575833959 Z34.02 See ACOG form Depressive disorder 3548 9007 F32.9 Pt. crying every day. She is afraid she is slipping into a depression . Option of medication discussed. Pt. agreeable. Rx sent. Instructio ns discussed. [id number] [facility]ie [facility]to [facility] ([employer] DRIVER) [address] [place] [address] 04/30/2020 09:00:09 05/01/2020 09:44:28 Routine care 642399185 Z34.02 See ACOG form [id number] Ruth Modi, [facility] [address] [place] [address] 05/12/2020 13:47:35 05/13/2020 14:34:35 Exposure to SARS-CoV-2 669665746 Z20.201 [id number] [facility] ([employer] DRIVER) [address] [place] [address] 06/04/2020 09:00:15 06/04/2020 11:55:58 Routine care 469115176 Z34.02 See ACOG form [id number] [facility] ([employer]) [address] [place] [address] 06/18/2020 09:00:29 06/19/2020 16:14:16 Routine care 053538928 Z34.02 See ACOG form [id number] Millie Mckeon Donnie [facility] ([employer] DRIVER) [address] [place] [address] 07/02/2020 08:59:27 07/03/2020 06:15:24 Routine care 176534797 Z34.02 See ACOG form [id number] Millie Mckeon Donnie ([employer] DRIVER) [address] [place] [address] 07/16/2020 09:33:15 07/17/2020 08:46:48 Routine care 826448672 Z34.02 See ACOG form [id number] ANDRE GARNER ([employer] DRIVER) [address] [place] [address] 02/10/2022 08:29:12 02/12/2022 08:41:21 Routine care 928597821 Z34.90 26yo presenting for NOB at 6-7 weeks. ED visit yesterday for spotting which has since resolved. Records requested. Provided reassuranc e that minimal bleeding is not uncommon during . PE today with no evidence of blood in vaginal vault or at cervical os. Will plan for repeat US in 3-4 weeks. Encouraged pelvic rest given recent bleeding episode. Discussed smoking cessation and associated risks of smoking during . Plan will be to obtain early GTT at 16-24 weeks given patient's risk factors and discussed expected weight gain during current . Initial labs drawn today, order for first trimester US provided. OB education provided and ectopic and SAB precaution s discussed. RTC in 4 weeks. [id number] ANDRE GARNER ([employer]IVER) [address] [place] [address] 03/10/2022 09:33:50 03/11/2022 11:39:56 Routine care 161910636 Z34.90 26 y/o female presents today for MARYANN at 11w. c/b obesity, smoking, and trich. She has no concerns today. Denies bleeding, discharge, cramping. US scheduled for next month. cfDNA drawn today. RTC in 4 weeks. Trichomona l vaginitis in 115193804 O98.319 Positive at NOB, s/p treatment. Will retest today. Safe sex practices discussed. Obesity 460253458 E66.9 Starting BMI 46. Plan will be to obtain early GTT at 16-24 weeks and discussed expected weight gain during current . [id number] ANDRE GARNER ([employer] DRIVER) [address] [place] [address] 04/07/2022 10:48:15 04/15/2022 13:20:02 Routine care 340807581 Z34.92 26 y/o female presents today for MARYANN at 15w. c/b obesity, smoking, and trich. ED visit on 04/05 for postcoital bleeding, no longer bleeding today. Pt reports US and STI testing performed, will request records. She has repeat US scheduled for next week. Advised pelvic rest at this time. ER precaution s discussed. RTC in 4 weeks. [id number] MD Barrett Yepez ([employer]) [address] [place] [address] 04/29/2022 10:47:10 04/29/2022 12:25:21 Routine care 322472159 Z34.92 26 y/o female presents today for MARYANN at 18w1d. c/b obesity, smoking, and trich. She had some painless spotting last week which has since resolved. US 04/13 with anterior placenta encroachin g on internal os. Will continue to monitor closely for placenta previa. Anatomy US orders placed with [facility]. MSAFP drawn today. RTC in 4 weeks. Mass of right breast 017 [id number] 4668101 N63.10 Right breast/nip ple is tender to palpation with 2 cm x 2 cm induration from 4-6 O'clock around nipple with overlying erythema and warmth. No fluctuance . Right nipple is inverted. Concerning for abscess. Rx clindamyci n (pt has PCN allergy). Continue warm compresses . Referral for US. Patient also reports yeast infections after antibiotic treatment, rx fluconazol e prn. Low lying placenta 305[address] 2006 O44.42 Painless spotting last week with low lying placenta on previous US 04/13; concerning for marginal placenta previa. Recommende d pelvic rest and decreased activity. Repeat US with [facility]. Discussed low threshold to present to ED with continued or worsened vaginal bleeding, abdominal pain, or cramps. [id number] ANDRE GARNER ([employer] DRIVER) [address] [place] [address] 05/27/2022 10:54:53 06/16/2022 12:41:14 Routine care 738937674 Z34.92 -26 y/o female presents today for MARYANN at 22w1d.-Pre gnancy c/b first trimester bleeding, obesity, smoking, trich, breast abscess.-U S 04/13/22 anterior placenta encroachin g on internal os - RESOLVED on 05/18/22 ultrasound normal, anterior placenta, no previa. Anatomy scan was normal, but specific aspects were sup-optima l so incomplete . Estimated wt 453 gm, amniotic fluid WNL-Patien t can discontinu e pelvic rest, educated to look for vaginal bleeding, resume rest if bleeding recurs + seek ER evaluation -Early GTT test ordered-RT C in 4 weeks Abscess of breast 833536 03 N61.1 s/p clinda, resolvedFo llow up breast US, scheduled 06/16/22 Morbid obesity [id number] E66.01 30# weight gain since initial visitcouns eled thoroughly on maintainin g healthy diet and appropriat e weight gain of <20#no active weight loss during , will benefit from pp weight reductione archie GTT scheduledm onthly growth assessment sfollowing with [facility] [id number] ANDRE GARNER (BATCH [employer]ING [employer]UCK [employer]IVER) [address] [place] [phone] 06/24/2022 10:43:25 07/08/2022 12:00:41 Routine care [id number] Z34.92 26 y/o female presents today for MARYANN at 26w1d.-Pre gnancy c/b first trimester bleeding, obesity, smoking, trich, breast abscess.-D enies bleeding, contractio ns, LOF, discharge- Discussed the role of ASA in the prevention of pre-eclamp angel and the risk factors. Pt acknowledg es understand ing-RTC in 2 weeks Morbid obesity [id number] E66.01 -18# weight gain since initial visit-coun seled thoroughly on maintainin g healthy diet and appropriat e weight gain of <20#-no active weight loss during , will benefit from pp weight reduction- early GTT resulted at 138-monthl y growth assessment s-weekly testing starting at 32 weeks-foll owing with MFM Smoker [id number] F17.200 completed cessation advised [id number] Farrah Dhillon MD [facility] [address] [facility] [address] [place] [address] 08/05/2022 14:17:09 08/06/2022 15:48:59 Third trimester [id number] Z33.1 yo G{{1 2* 3 4 5 6 7 8 9}}P{{0 1* 2 3 4 5 6 7 8 9}}{{ 0* 1 2 3 4 5 6 7 8 9 }}{{0* 1 2 3 4 5 6 7 8 9}}{{0 1* 2 3 4 5 6 7 8 9}} femaleHigh -risk ? {{no* yes} } Final NICHO: {{Oct Ma y Mar De c*}}{{1 2 3 4 5 6 7 8 9 10 11 12 13 14* 15 16 17 1 8 19 20 21 22 23 24 25 26 27 2 8 30 31}}{ {202* 202 3 2023}} based on {{1st trimester US 2nd trimester US 3rd trimester US LMP}} PMH: none Past history had to be induced 3 weeks early for non reassuring FHR complicate d by: obesity, tobacco use, trich infection early in 28 week EPDS: {{negative * positive }} Rh: {{positive * negative }} RhoGAM given: {{n/a* yes no ordere d}} : {{no* yes} } Labs: {{normal* abnormal}} Abnormal lab: early trichomona l infection MANUEL 03/07 Plan for abnormal results if indicated: 2nd trimester US: {{normal* abnormal n ot done sched uled order ed}} Total weight gain: Pre-pregna ncy weight 260, today at 283 Recommende d weight gain: {{BMI <18.5 28-40 lbs BMI 18.5-24.9 25-35 lbs BMI 25-29.9 15-25 lbs BMI >30 11-20*}} Flu vaccine: {{UTD decl ined given today will offer in season May-January will offer next visit#}} Covid vaccine: {{UTD decl ined* give n today}} Tdap: {{UTD* dec lined give n today}} 28 week lab (1 hr GTT, CBC, HIV, RPR, Blood type and screen if Rh neg, and repeat GC/CT/tric h if less than 25 or positive earlier in ) : {{ordered* reviewed, normal rev iewed, abnormal}} [facility] referral: {{no yes*} }Behaviora l Health: {{no* yes} } Follow-up: {{1 2* 3 4 5 6 7 8 9 10 11 12 13}}{{days week{s}* month(s)}} -talked about signs of labor-talk ed about return precaution s-discusse d ASA use-will get third trimester STI labs-CDC-E ncouraged healthy diet and walking for exercise-E PDS is 2 today-will get another U/S in 2 weeks Obesity [id number] E66.9 -BMI: {{30-39 40 -49* 50-59 60+}}-Tot al weight gain goal: 11-20 pounds for BMI 30+a. BMI 40-50 Manage with MFM consultb. BMI 50-60 Transfer care to OB. Anesthesia consult.c. BMI >60 Transfer care to M. Anesthesia consult.d. Do not recommend weight loss, rather weight gain within range and avoidance of excessive weight gain.e. Nutrition referral for BMI 3 0 or excessive weight gain. Encourage increase activity, behavioral modificati ons.g. consult Anesthesia by 32 wks.h. Growth ultrasound at 28 and 36 wks if BMI 3 5 or unable to palpate fundal heightj. APFT (NST/SDP or ARTIE) weekly starting at 34 wks if BMI 4 0k. Delivery timin-41 6/7 wks, consider IOL 39-40 0/7 wks if BMI 4 0 Excessive weight gain during [id number] O26.03 See above plan for obesity Nicotine dependence [id number] F17.200 patient is weaning down but still smoked half PPD. Talked to patient about risks of smoking including growth restrictio n and placental abnormalit ies as well as risk of SIDS.. Patient understood and will continue to work on quitting. [id number] Paulette Rich MD [facility] [address] [address] 08/19/2022 13:58:17 09/01/2022 13:54:18 Bacterial vaginosis 111600449 N76.0 Did not use gel prescribed with last order. Prescribed flagyl 500 mg BID x 1 week. Sent to [facility] per pt request. Morbid obesity [id number] E66.01 -BMI: {{30-39 40 -49* 50-59 60+}}-Tot al weight gain goal: 11-20 pounds for BMI 30+, now with excessive weight gaina. BMI 40-50 Manage with MFM consultb. BMI 50-60 Transfer care to OB. Anesthesia consult.c. BMI >60 Transfer care to MFM. Anesthesia consult. - Growth ultrasound at 36 wks, sent order- wanted new script for ASA sent to [facility] (high risk for Pre-E), ordered today- APFT (NST/SDP or ARTIE) weekly starting at 34 wks (now). Ordered today, sent with physical copy of order and instructio ns to call L&D for scheduling j. Consider IOL 39-40 0/7 wks with BMI > 4 0 Active or passive immunization [id number] Z23 Flu shot given today. [id number] Amber Hester MD [facility] [address] [phone] 08/31/2022 14:58:04 09/01/2022 15:45:21 Body mass index 40+ - severely obese 778215049 Z68.42 -BMI: 50-Total weight gain goal: 11-20 pounds for BMI 30+, now with excessive weight gaina. BMI 40-50 Manage with MFM consultb. BMI 50-60 Transfer care to OB. Anesthesia consult.c. BMI >60 Transfer care to MFM. Anesthesia consult. - Growth ultrasound at 36 wks- Wanted new script for ASA sent to [facility] in [place] (high risk for Pre-E), ordered today- APFT (NST/SDP or ARTIE) weekly starting at 34 wks (now).: Pt has not gone to triage for NSTs, Escorted pt to triage after clinic visit today (08/31) j. Consider IOL 39-40 0/7 wks with BMI > 4 0 Excessive weight gain 22 8349235 R63.5 : Pre-pregna ncy weight: ~260 lbs [BMI = 44.63]: Current weight: 291 lbs, BMI 50: Expected 3rd trimester weight gain: -: Excessive wt gain = ~ 280 lbs (127 kg)- BMI 50-60 Transfer care to OB. Anesthesia consult.- Growth ultrasound at 36 wks previously ordered but pt reports not getting any phone call for appointmen t ->Plan to have U/S coordinate d- APFT (NST/SDP or ARTIE) weekly starting at 34 wks. NST performed today (08/31)- Consider IOL 39-40 0/7 wks with BMI > 4 0 Routine an tenatal care [id number] Z34.93 Health Concerns Section Related Observation LastModified by Organization Detai ls LastModified Time None Recorded Concern Status LastModified by Organization Details LastModified Time None Recorded Advance Directives Directive N: Payers Encounter Date Sequence Insurance Name Policy Number Policy Saavedra Covered Member ID Saavedra Member ID Guarantor Name 05/27/2022 2 [place] [facility] [id number] [facility] 05/27/2022 1 [facility] [id number] [facility] [id number] [facility] 06/24/2022 2 [place] [facility] [id number] [facility] 06/24/2022 1 [facility] [id number] [facility] [id number] [facility] 08/05/2022 2 [place] [facility] [id number] [facility] 08/05/2022 1 [facility] [id number] [facility] [id number] [facility] 08/19/2022 2 [place] [facility] [id number] [facility] 08/19/2022 1 [facility] [id number] Arielle Barlow [id number] Arielle Barlow 08/31/2022 2 [place] [facility] Arielle Barlow [id number] Arielle Barlow 08/31/2022 1 [facility] [id number] Arielle Barlow [id number] Arielle Barlow Notes Date Note Type Note Provider Name and Address Organization Details Recorded Time 05/27/2022 text/html Ms. Cain bernabe s a 26 year-old who presents to the clinic for her routine 22 week visit. c/b trich, smoking, obesity. She reports breast abscess has completely healed and she finished all abx. On 04/13/22 her 16 wk ultrasound indicated a low-lying placenta encroaching on cervical os. She was put on pelvic rest. She denies any vaginal bleeding or unusual discharge. Patient is concerned about whether her weight gain is adequate or excessive during this as she gained 65 pounds with her first . She endorses feeling bloated, but denies nausea or vomiting. She denies cramping or abdominal pain. She has no other complaints or concerns at this time. ANDRE GARNER Attn: [address] [place], [address], [facility] 06/19/2022 12:23:54 06/24/2022 text/html Arielle davis is a 26 year-old female smoker who presents for a routine OB appointment at 26.1 weeks. Pt is currently doing well with no complaints. Pt does elicit concerns about taking two asprin that [facility] physician prescribed for her the prevention of pre-eclampsia as she does not have history of pre-eclampsia. She is still indecisive where she would like to deliver, however, is considering [place]. Pt denies nausea, vomiting, constipation, GERD, vaginal bleeding or discharge, abdominal pain, or contractions. ANDRE GARNER Attn: [address] [place], [address], [facility] 07/07/2022 18:16:04 08/05/2022 text/html Arielle davis is a 26 year-old at 31w1d who presents today for MARYANN. complicated by trich (MANUEL 03/10 negative), smoking, obesity. She reports breast abscess earlier in that resolved after clindamycin . Pt is currently doing well with no complaints.. Pt denies nausea, vomiting, constipation, GERD, vaginal bleeding or discharge, abdominal pain, or contractions. Farrah Dhillon MD Attn: [address] [facility], [place], [address], [facility] 08/06/2022 11:31:10 08/19/2022 text/html 26 yo presenting at 34.1 for MARYANN. States that she has less of an appetite recently, only eating once or twice daily. She has increased urinary frequency but no itching, cramping or other signs of a UTI. Denies vaginal bleeding, worsening contractions, LOF, edema, headaches, visual changes, RUQ pain. Paulette Rich MD Attn: [address] [facility], [place], [address], [facility] 08/20/2022 14:49:55 08/31/2022 text/html 26 yo F @ 35 wks & 6 days gestation based on 2nd trimester U/S w/ no signicant pmhx presents for Routine OB/pre-kentrell care visit. - complicated by: Morbid obesity, tobacco use, & trich infection early in - Reports the presence of movement BUTnot as active as felt in the prior months. - Pt has no complaints today. Clarified to patient today reason for transfer to [facility] and informed her of most recent results.- Pt denies vaginal bleeding, vaginal discharge, loss of fluid, consist contractions, lower abdominal/pelvic pain, visual changes, N/V, Chest pain, SOB, lightheadedness, weakness, swelling in hands/feet, changes in urination (decreased/anuria, pain, discoloration, blood). She has not had a visit to ED or Triage since last appointment. Reviewed:- Most recent 3 hr GTT results are negative-Pt has not heard from [facility] facility for repeat growth scan. Informed pt to ensure there is discussion rerading repeat imaging at [facility] appointment.- Discussed reason for transfer to [facility] with appointment scheduled for 09/06.- Pt has not started aspirin. Has not been around the area of the pharmacy that it was sent to.- patient was not interested in getting GBS swab today and intends to have it completed at upcoming appointment with [facility].- Pt notes still in the process of finishing up metronidazole treatment for BV. : Plans to breast feed? yes, and discussed the Benefits to .: Plans to recieve epidural? yes: Plan for Circumcision? Yes: contraception? Not certain about: Hotel [employer]? Dayna Hester MD Attn: [address]ing[address] [facility], [place], [address], [facility] 09/01/2022 17:56:08 OBGyn Episode Ob Episode Information Episode Created Date Number of Fetuses Patient Bloodtype Patient rh Status Prepregnancy Weight lbs Domestic Partner Domestic Partner Phone Father Name [employer] Status 02/11/20 22 1 O Positive 266 CLOSED Fetus Data First Name Last Name Admitted to NICU Weight (g) Sex Living Outcome Pediatric Complications Fetus ID Race Codes Race Delivery Type [id number] Problems Problem Notes Problem Name Start Date End Date Resolution Snomed Code Not e Excessive weight gain 08/29/2022 [id number] 02 Obesity 126196951 Starting B VA 45.7. Limit weight gain to <20#. Early OGTT. Smoker 49168564 Cessation discussed Low lying placenta [id number] U S 04/13 with anterior placenta encroaching on internal os, RESOLVED US 05/18/22 Trichomonal vaginitis in 02/16/2022 856048876 Positive on NOB , MANUEL 03/10 negative Abscess of breast 06/19/2022 [id number] s /p clinda Nicho Calculation Initial Nicho Date Initial Exam Date Initial Exam Provider Initial Ultrasound Date Last Menstrual Period Date Ultra Sound Weeks Gestation 09/18/2022 02/10/2022 [email or web address] 02/08/2022 12/12/2021 6 Eighteen To Twenty Week Nicho Update Ultra Sound Date Fundal Height At Umbil Quickening Date Ultra Sound Latest Weeks Gestation Final Nicho Confirmed By Final Nicho Confirmed Date Final Nicho Date Ultra Sound Latest Days Gestation 0 09/29/20 22 0 Pre- Flowsheet Flowsheet Date 02/10/2022 López Score Blood Edema Fundus Height Fundus Units Glucose Ketones Leukocytes Nitrite Labor Signs Protein Cervic Dilation Cervic Effacement Cervic Station neg none 7 wks none negative neg Type Weight in lbs Pre/Post Dialysis Refused With clothes 266.332559169970 BP Diastolic BP Location Tested BP Systolic BP Type 60 94 sitting Fetus Heart Rate Present Fetus Movement Comments 26yo presenting for NOB at 6-7 weeks. ED visit yesterday for spotting which has since resolved. Records requested. Provided reassurance that minimal bleeding is not uncommon during . PE today with no evidence of blood in vaginal vault or at cervical os. Will plan for repeat US in 3-4 weeks. Encouraged pelvic rest given recent bleeding episode. Discussed smoking cessation and associated risks of smoking during . Plan will be to obtain early GTT at 16-24 weeks given patient's risk factors and discussed expected weight gain during current . Initial labs drawn today, order for first trimester US provided. OB education provided and ectopic and SAB precautions discussed. RTC in 4 weeks. Flowsheet Date 03/10/2022 López Score Blood Edema Fundus Height Fundus Units Glucose Ketones Leukocytes Nitrite Labor Signs Protein Cervic Dilation Cervic Effacement Cervic Station neg none 11 wks none negative none neg Type Weight in lbs Pre/Post Dialysis Refused With clothes 267.696325425786 BP Diastolic BP Location Tested BP Systolic BP Type 76 128 sitting Fetus Heart Rate Present A 160 Present Fetus Movement Comments 26 y/o female presen ts today for MARYANN at 11w. c/b obesity, smoking, and trich. She has no concerns today. Denies bleeding, discharge, cramping. US scheduled for next month. cfDNA drawn today. MANUEL for trich. RTC in 4 weeks. Flowsheet Date 04/07/2022 López Score Blood Edema Fundus Height Fundus Units Glucose Ketones Leukocytes Nitrite Labor Signs Protein Cervic Dilation Cervic Effacement Cervic Station neg none 15 wks none negative Bleeding neg Type Weight in lbs Pre/Post Dialysis Refused With clothes 273.873062205733 BP Diastolic BP Location Tested BP Systolic BP Type 80 118 sitting Fetus Heart Rate Present A 145 Present Fetus Movement Comments 26 y/o female presen ts today for MARYANN at 15w. c/b obesity, smoking, and trich. Pt denies cramping, discharge. MANUEL from last visit negative for trich. ED visit on 04/05 for postcoital bleeding, no longer bleeding today. Pt reports US and STI testing performed, will request records. She has repeat US scheduled for next week. Advised pelvic rest at this time. ER precautions discussed. RTC in 4 weeks. Flowsheet Date 04/29/2022 López Score Blood Edema Fundus Height Fundus Units Glucose Ketones Leukocytes Nitrite Labor Signs Protein Cervic Dilation Cervic Effacement Cervic Station neg none 18 wks none negative Bleeding neg Type Weight in lbs Pre/Post Dialysis Refused With clothes 0.0 BP Diastolic BP Location Tested BP Systolic BP Type 80 118 sitting Fetus Heart Rate Present A 140 Present Fetus Movement A Yes Comments 26 y/o female presen ts today for MARYANN at 18w1d. c/b obesity, smoking, and trich. + movement. She had some painless spotting last week which has since resolved. US 04/13 with anterior placenta encroaching on internal os, concerning for marginal placenta previa. Will continue to monitor closely for placenta previa. Repeat US orders placed with MFM. Advised pelvic rest and decreased activity. ER precautions discussed. PE concerning today for R breast abscess. Abx started and pt sent for breast US. Advised to call if not improving in 2-3 days. MSAFP drawn today. RTC in 4 weeks. Flowsheet Date 05/27/2022 López Score Blood Edema Fundus Height Fundus Units Glucose Ketones Leukocytes Nitrite Labor Signs Protein Cervic Dilation Cervic Effacement Cervic Station neg none 22 cm none negative none neg Type Weight in lbs Pre/Post Dialysis Refused With clothes 296.945898804821 BP Diastolic BP Location Tested BP Systolic BP Type 76 114 sitting Fetus Heart Rate Present A 134 Present Fetus Movement A Yes Comments 26 y/o female presen ts today for MARYANN at 22w1d. c/b first trimester bleeding, obesity, smoking, trich, breast abscess. Denies bleeding, cramping, discharge. Breast abscess fully resolved. Placenta previa resolved on 05/18/22 ultrasound (anterior placenta, no previa. Anatomy scan was normal, but specific aspects were sup-optimal so incomplete. Estimated wt 453 gm, amniotic fluid WNL). Excessive weight gain (30#). Early GTT test ordered, MFM referral placed. Thorough education provided. RTC in 4 weeks. Flowsheet Date 06/24/2022 López Score Blood Edema Fundus Height Fundus Units Glucose Ketones Leukocytes Nitrite Labor Signs Protein Cervic Dilation Cervic Effacement Cervic Station neg none 26 wks none negative none neg Type Weight in lbs Pre/Post Dialysis Refused With clothes 284.743082519055 BP Diastolic BP Location Tested BP Systolic BP Type 68 100 sitting Fetus Heart Rate Present A 142 Present Fetus Movement A Yes Comments 26 y/o female presen ts today for MARYANN at 26w1d. Denies bleeding, contractions, LOF, discharge. 1 hour GCT wnl (138). Following with MFM. Discussed the role of ASA in the prevention of pre-eclampsia and the risk factors. Continue as prescribed. RTC in 2 weeks. Flowsheet Date 08/05/2022 López Score Blood Edema Fundus Height Fundus Units Glucose Ketones Leukocytes Nitrite Labor Signs Protein Cervic Dilation Cervic Effacement Cervic Station 34 cm Type Weight in lbs Pre/Post Dialysis Refused With clothes 283.807408045624 BP Diastolic BP Location Tested BP Systolic BP Type 80 123 sitting Fetus Heart Rate Present A 132 Present Fetus Movement A Yes Comments 26 y/o female presen ts today for MARYANN at 26w1d. Denies bleeding, contractions, LOF, discharge. 1 hour GCT wnl (138). Following with MFM. Discussed the role of ASA in the prevention of pre-eclampsia and the risk factors. Continue as prescribed. Will get 3rd trimester labs today. RTC in 2 weeks. Flowsheet Date 08/19/2022 López Score Blood Edema Fundus Height Fundus Units Glucose Ketones Leukocytes Nitrite Labor Signs Protein Cervic Dilation Cervic Effacement Cervic Station 35 cm Type Weight in lbs Pre/Post Dialysis Refused Weight 288.75746527613 BP Diastolic BP Location Tested BP Systolic BP Type 74 122 sitting Fetus Heart Rate Present A 128 Present Fetus Movement A Yes Comments 26 y/o female presen ts today for MARYANN at 34.1 Denies bleeding, contractions, LOF, discharge. Having increased urinary frequency - UA in clinic overall negative. Discussed 3hr GTT, pt amenable to doing GTT next Friday 08/24 - coordinated with lab. Will need 36 week growth scan and referral to OB, Dr. Gerardo to send paperwork. Prefers pills for BV so ordered to [facility] in [place]. Will start weekly NSTs - prefers to do at [facility] labor and delivery. Provided order sheet and instructed pt to call number. Needs GBS at next visit. Flowsheet Date 08/31/2022 López Score Blood Edema Fundus Height Fundus Units Glucose Ketones Leukocytes Nitrite Labor Signs Protein Cervic Dilation Cervic Effacement Cervic Station Type Weight in lbs Pre/Post Dialysis Refused With clothes 291.264982274288 BP Diastolic BP Location Tested BP Systolic BP Type 79 133 sitting Fetus Heart Rate Present A 125 Present Fetus Movement Comments 26 yo F @ 35 wks & 6 days ge station based on 2nd trimester U/S w/ no significant pmhx presents for Routine OB/pre- care visit.- Pt denies vaginal bleeding, vaginal discharge, loss of fluid, consist contractions, lower abdominal/pelvic pain, visual changes, N/V, Chest pain, SOB, lightheadedness, weakness, swelling in hands/feet, changes in urination (decreased/anuria, pain, discoloration, blood). She has not had a visit to ED or Triage since last appointment.- Plan for repeat U/S- Plan for weekly NSTs. Underwent first NST today (08/31) Menstrual History Last Menstrual Date Menses Monthly On Bcp Conception Prior Menses Frequency Hcg Plus Date Menarche Onset Age 0212/12/2021 true false Genetic Screening And Infection History Question Response Note Patient's Age Will Be 35 Years Or Older At Estim ated Date of Delivery false Thalassemia (Thai, Malay, Mediterranean, Or Background): MCV < 80 false Neural Tube Defect (Meningomyelocele, Spina Bifi da, Or Anencephaly) false Congenital Heart Defect false Down Syndrome false Maury-Sachs (eg, Methodist, Cajun, Niuean-Maltese) f alse Daniela Disease false Sickle Cell Disease Or Trait () false Hemophilia Or Other Blood Disorders false Muscular Dystrophy false Cystic Fibrosis false Tabby's Chorea false Mental Retardation/Autism false If Yes, Was Person Tested For Fragile X? false Other Inherited Genetic Or Chromosomal Disorder false Maternal Metabolic Disorder (eg, Type 1 Diabetes , PKU) false Patient Or Baby's Father Had A Child With Defects Not Listed Above false Recurrent Loss, Or A Stillbirth false Medications (including Suppl ements, Vitamins, Herbs, OTC Drugs), Illicit/Recreational Drugs, Alcohol false If Yes, Agent(s) And Strength/Dosage false Any Other Genetic History false Live With Someone With TB Or Exposed To TB false Patient Or Partner Has History Of Genital Herpes false Rash Or Viral Illness Since Last Menstrual Perio d false History Of STD, Gonorrhea, Chlamydia, HPV, Syphi lis true CT, TV Other Infection History false History of HIV false History of Hepatitis false Prior GBS-infected child false Plans and Education First Trimester Discussed Date Discussion Item Discussion Note Discuss ed By 02/10/2022 Anticipated course of care [email or web address] 02/10/2022 Alcohol [email or web address] 02/10/2022 Intimate partner violence mathew [email or web address] 02/10/2022 [place] [address] 02/10/2022 Screening for aneuploidy jco [email or web address] 02/10/2022 Nutrition counseling ; special diet; dietary precautions (mercury, listeriosis) [place] [address] 02/10/2022 Childbirth classes/h ospital facilities [place] [address] 02/10/2022 HIV and other routine tests [place] [address] 02/10/2022 Risk factors identif ied by history smoker, obesity [email or web address] 02/10/2022 Weight gain counseling 11-20# [email or web address] 02/10/2022 Exercise [email or web address] 02/10/2022 Teratogens [place] [address] 02/10/2022 Use of any medicatio ns (including supplements, vitamins, herbs, or OTC drugs) [email or web address] 02/10/[place] [address] 02/10/2022 Sexual activity [place] [address] 02/10/2022 Tobacco/smoking cess ation counseling (ask, advise, assess, assist, and arrange) cessation [place] [id number] 02/10/2022 Illicit/recreational drugs [place] [id number] 02/10/2022 [facility] 02/10/2022 Travel [place] [id number] 02/10/2022 Seat belt use [place] [address] 02/10/2022 [facility]ications [facility] 02/10/2022 Avoidance of saunas or hot tubs [facility] 02/10/2022 Toxoplasmosis precau tions (cats/raw meat) [place] [address] Second Trimester Discussed Date Discussion Item Discussion Note Discuss ed By Third Trimester Discussed Date Discussion Item Discussion Note Discuss ed By Delivery Information Delivery Date Delivery Type Labor Anesthesia Weeks Gestation Incision Type Labor Labor Length Hrs Delivered By Post Complications Tubal Sterilization Discharge Date Comments Discharge Information Feeding Method Contraceptive Method Maternal HG B and HCT Levels Ob Episode Information Episode Created Date Number of Fetuses Patient Bloodtype Patient rh Status Prepregnancy Weight lbs Domestic Partner Domestic Partner Phone Father Name Hotel Yardperson Status 03/05/20 20 1 O Positive CLOSED Fetus Data First Name Last Name Admitted to NICU Weight (g) Sex Living Outcome Pediatric Complications Fetus ID Race Codes Race Delivery Type [id number] Problems Problem Notes Problem Name Start Date End Date Resolution Snomed Code Not e Morbid obesity [id number] Smoker [id number] Nicho Calculation Initial Nicho Date Initial Exam Date Initial Exam Provider Initial Ultrasound Date Last Menstrual Period Date Ultra Sound Weeks Gestation 08/29/2020 03/05/2020 [email or web address] 01/15/2020 11/23/2019 6 Eighteen To Twenty Week Nicho Update Ultra Sound Date Fundal Height At Umbil Quickening Date Ultra Sound Latest Weeks Gestation Final Nicho Confirmed By Final Nicho Confirmed Date Final Nicho Date Ultra Sound Latest Days Gestation 0 [email or web address] 03/05/2020 09/03/20 20 0 Pre-kentrell Flowsheet Flowsheet Date 03/05/2020 López Score Blood Edema Fundus Height Fundus Units Glucose Ketones Leukocytes Nitrite Labor Signs Protein Cervic Dilation Cervic Effacement Cervic Station Type Weight in lbs Pre/Post Dialysis Refused Weight 241.4506202310 BP Diastolic BP Location Tested BP Systolic BP Type 80 110 sitting Fetus Heart Rate Present A 140 Present Fetus Movement Comments folder given. Pren atal labs ordered. PE, pap, GC/Chlam cx done. US done at [facility] 01/15/20 with EDC 09/03/20, dwp. Pt. taking PNVs. Smoking cessation discussed. RTO 4 weeks in office. Quad screen and Anatomy US order next visit. Flowsheet Date 04/02/2020 López Score Blood Edema Fundus Height Fundus Units Glucose Ketones Leukocytes Nitrite Labor Signs Protein Cervic Dilation Cervic Effacement Cervic Station none neg Type Weight in lbs Pre/Post Dialysis Refused Weight 246.877442272815 BP Diastolic BP Location Tested BP Systolic BP Type 76 110 sitting Fetus Heart Rate Present A 140 Present Fetus Movement A Yes Comments labs reviewed. Pt. trying to quit smoking. Pt. with c/o crying every day. Medication discussed. Rx sent. Instructions and expectations discussed. Quad screen discussed, ordered. Anatomy US ordered. RTO 4 weeks. Flowsheet Date 04/30/2020 López Score Blood Edema Fundus Height Fundus Units Glucose Ketones Leukocytes Nitrite Labor Signs Protein Cervic Dilation Cervic Effacement Cervic Station Type Weight in lbs Pre/Post Dialysis Refused Weight 255.305097562332 BP Diastolic BP Location Tested BP Systolic BP Type 70 120 sitting Fetus Heart Rate Present Fetus Movement Comments Quad screen negative, dwp. A natomy US incomplete. Repeat ordered, dwp. RTO 5 weeks. Third trimester labs and TdaP next visit. Flowsheet Date 05/12/2020 López Score Blood Edema Fundus Height Fundus Units Glucose Ketones Leukocytes Nitrite Labor Signs Protein Cervic Dilation Cervic Effacement Cervic Station Type Weight in lbs Pre/Post Dialysis Refused BP Diastolic BP Location Tested BP Systolic BP Type Fetus Heart Rate Present Fetus Movement Comments Flowsheet Date 06/04/2020 López Score Blood Edema Fundus Height Fundus Units Glucose Ketones Leukocytes Nitrite Labor Signs Protein Cervic Dilation Cervic Effacement Cervic Station none neg Type Weight in lbs Pre/Post Dialysis Refused With clothes 263.676615330 BP Diastolic BP Location Tested BP Systolic BP Type 82 120 sitting Fetus Heart Rate Present A 130 Present Fetus Movement A Yes Comments Anatomy US complete. Pt. dra montalvo juice this morning. Third trimester labs JORDY. Instructions discussed. TdaP discussed, given. PT labor prec/kick counts discussed. RTO 2 weeks. Flowsheet Date 06/18/2020 López Score Blood Edema Fundus Height Fundus Units Glucose Ketones Leukocytes Nitrite Labor Signs Protein Cervic Dilation Cervic Effacement Cervic Station none neg Type Weight in lbs Pre/Post Dialysis Refused With clothes 266.346215093565 BP Diastolic BP Location Tested BP Systolic BP Type 76 122 sitting Fetus Heart Rate Present A 140 Present Fetus Movement A Yes Comments Third trimester labs today. PT labor prec/kick counts discussed. Flowsheet Date 07/02/2020 López Score Blood Edema Fundus Height Fundus Units Glucose Ketones Leukocytes Nitrite Labor Signs Protein Cervic Dilation Cervic Effacement Cervic Station 34 cm none neg Type Weight in lbs Pre/Post Dialysis Refused With clothes 268.406160932657 BP Diastolic BP Location Tested BP Systolic BP Type 78 124 sitting Fetus Heart Rate Present A 140 Present Fetus Movement A Yes Comments Third trimester labs wnl, dw p. PT labor prec/kick counts discussed. RTO 2 weeks. Flowsheet Date 07/16/2020 López Score Blood Edema Fundus Height Fundus Units Glucose Ketones Leukocytes Nitrite Labor Signs Protein Cervic Dilation Cervic Effacement Cervic Station 36 cm none neg Type Weight in lbs Pre/Post Dialysis Refused With clothes 273.569912094968 BP Diastolic BP Location Tested BP Systolic BP Type 82 120 sitting Fetus Heart Rate Present A 150 Present Fetus Movement A Yes Comments PT labor prec/kick counts di scussed. RTO 2 weeks. Menstrual History Last Menstrual Date Menses Monthly On Bcp Conception Prior Menses Frequency Hcg Plus Date Menarche Onset Age 0211/23/2019 true 5 0 9 Genetic Screening And Infection History Question Response Note Patient's Age Will Be 35 Yea rs Or Older At Estimated Date of Delivery false Thalassemia (Thai, Malay, Mediterranean, Or Background): MCV < 80 false Neural Tube Defect (Meningom yelocele, Spina Bifida, Or Anencephaly) false Congenital Heart Defect true fob moth er Down Syndrome false Maury-Sachs (eg, Methodist, Cajun, Niuean-Maltese) f alse Daniela Disease false Sickle Cell Disease Or Trait () false Hemophilia Or Other Blood Disorders false Muscular Dystrophy false Cystic Fibrosis false [place]'s Chorea false Mental Retardation/Autism false Other Inherited Genetic Or Chromosomal Disorder false Maternal Metabolic Disorder (eg, Type 1 Diabetes , PKU) false Patient Or Baby's Father Had A Child With Defects Not Listed Above false Recurrent Loss, Or A Stillbirth false Medications (including Suppl ements, Vitamins, Herbs, OTC Drugs), Illicit/Recreational Drugs, Alcohol false Any Other Genetic History false Live With Someone With TB Or Exposed To TB false Patient Or Partner Has History Of Genital Herpes false Rash Or Viral Illness Since Last Menstrual Perio d false History Of STD, Gonorrhea, Chlamydia, HPV, Syphi lis true pt hx of chlamydia Other Infection History false History of HIV false History of Hepatitis false Prior GBS-infected child false Delivery Information Delivery Date Delivery Type Labor Anesthesia Weeks Gestation Incision Type Labor Labor Length Hrs Delivered By Post Complications Tubal Sterilization Discharge Date Comments afehrenbac her Discharge Information Feeding Method Contraceptive Method Maternal HG B and HCT Levels
--- OUTSIDE RECORDS SUMMARY | 2025-01-08 10:41 | XMS_ITS | Clinical Summary ---
Author Organization [facility] Address [address] [place] [id number] Care Team Providers Care Camp Guard Name Role Phone None, Provider MD Primary Care Provider Unavaila ble Allergies Active Allergy Reactions Criticality Noted Date Comments Cephalexin Hives 04/05/2022 Medications metroNIDAZOLE (FLAGYL) 500 MG tablet Take 500 mg by mouth 2 (two) times daily. for 7 days 08/19/2022 Active Social History Tobacco Use Types Packs/Day Years Used Date Smoking Tobacco: Every Day Cigarettes 0.3 8 Smokeless Tobacco: Never Tobacco Cessation:Ready to Q uit: Not Asked; Counseling Given: Not Answered Alcohol Use Standard Drinks/Week Comments Not Currently 0 (1 standard drink = 0.6 oz pur e alcohol) Humiliation, Afraid, Rape, and Kick questionnair e Answer Date Recorded Within the last year, have y ou been afraid of your partner or ex-partner? No 08/31/2022 Within the last year, have y ou been humiliated or emotionally abused in other ways by your partner or ex-partner? No Within the last year, have y ou been kicked, hit, slapped, or otherwise physically hurt by your partner or ex-partner? No 08/31/2022 Within the last year, have y ou been raped or forced to have any kind of sexual activity by your partner or ex-partner? No 08/31/2022 Comments No Sex and Gender Information Value Date Recorded Sex Assigned at Not on file Legal Sex Female 7:17 AM CDT Gender Identity Not on file Sexual Orientation Not on file Last Filed Vital Signs Vital Sign Reading Time Taken Comments Blood Pressure 123/73 08/31/2022 3:43 PM MOVIE THEATER USHER Pulse 93 08/31/2022 3:59 PM MOVIE THEATER USHER Temperature 36.8 C (98.2 F) 08/31/2022 3:45 PM MOVIE THEATER USHER Respiratory Rate 18 08/31/2022 3:45 PM MOVIE THEATER USHER Oxygen Saturation 96% 04/05/2022 10:39 AM CDT Inhaled Oxygen Concentration - - Weight 132 kg (291 lb) 08/31/2022 3:39 PM MOVIE THEATER USHER Height 162.6 cm (5' 4 ) 08/31/2022 3:39 PM MOVIE THEATER USHER Body Mass Index 49.95 08/31/2022 3:39 PM MOVIE THEATER USHER Plan of Treatment Health Maintenance Due Date Last Done Comments Cervical Cancer Screening Pap Smear (Age 21 to 29) Every 3 Years 1996 Cervical Cancer Screening 1996 Hepatitis B Vaccines (3 of 3 - 3-dose series) 04/29/1997 02/01/1997, 1996 Annual Physical 1999 Pneumococcal Vaccine: Pediatrics (0 to 5 Years) and At-Risk Patients (6 to 64 Years) (1 of 2 - PCV) 2002 Hepatitis C 2014 DTaP, Tdap and Td Vaccines (5 - Td or Tdap) 12/30/2020 12/30/2010, 05/06/1997, 02/27/1997, Additional history exists COVID-19 Vaccine ( season) 2024 Influenza Adult (#1) 2024 08/15/2020 Meningococcal Vaccine Completed 03/13/2015, 011 HPV Vaccines Aged Out No longer eligi ble based on patient's age to complete this topic Meningococcal B Vaccine Aged Out No l onger eligible based on patient's age to complete this topic RSV Immunizations Under 20 Months Aged Out No longer eligible based on patient's age to complete [place] [address] [place] [address] [place] [address] Care Teams Camp Guard Relationship Specialty Start Date End Date None, Provider, PCP - General 04/05/22
[2025-01-08 20:12] LABS: Trichomonas Vag PCR DETECTED (NOT DETECTE)
[2025-01-08 20:48] LABS: Chlamydia trachomatis NOT DETECTED (NOT DETECTE); Neisseria gonorrhoeae PCR NOT DETECTED (NOT DETECTE)
[2025-01-09 13:34] LABS: Bacterial Vaginosis POSITIVE (NEGATIVE)
== END 2025-01-08 10:13 | disposition home or self-care (01) ==
PROVIDERS: Emergency Provider Nurse Practitioner Family
DX: N64.52 Nipple discharge (principal); F17.200 Nicotine dependence, unspecified, uncomplicated; Z11.3 Encounter for screening for infections with a predominantly sexual mode of transmission
CPT/HCPCS: 81003; 81025; 81513; 87070; 87086; 87491; 87591; 87661; 99213; G0463

== ENCOUNTER 2025-08-20 10:35 | Emergency (ER) | payer OTHER, SELFPAY ==
[2025-08-20 10:47] VITALS: BP 112/48; PULSE 61; RESP 18; TEMP 36.4; O2SAT 100
--- NOTE | 2025-08-20 11:09 | ED_ITS ---
HPI - General Adult General Chief complaint: Ear Stated complaint: Clogged Ears Source: patient Mode of arrival: ambulatory Limitations: no limitations History of Present Illness HPI narrative: Patient presents for evaluation of sick symptoms for last month. Symptoms include sinus congestion, frontal headache, postnasal drainage, cough, and bilateral ear pain. No fever, chills, nausea, vomiting, shortness of breath. Her son was recently sick with an ear infection. They were also out in the general public last week at [place]. She is not taking any medication to assist with her symptoms. She smokes 1/2 ppd. Related Data Home Medications ?Medication ?Instructions ?Recorded ?Confirmed ?Last Taken ?Type norgestimate 0.25 mg-ethinyl tablet 08/20/25 Unknown History estradiol 0.035 mg tablet (Estarylla) Allergies Allergy/AdvReac Type Severity Reaction Status Date / Time cephalexin AdvReac Mild hives Verified 08/20/25 10:37 Review of Systems Review of Systems: CONSTITUTIONAL: Denies fever, chills, or sweats. EYES: Denies visual changes, redness, or discharge. ENT: reports sinus congestion, postnasal drainage, and bilateral otalgia. CARDIOVASCULAR: Denies chest pain, palpitations, or edema. RESPIRATORY: Reports cough. Denies shortness of breath GASTROINTESTINAL: Denies abdominal pain, nausea, vomiting, or diarrhea. GENITOURINARY: Denies dysuria or hematuria. SKIN: Denies rash or itching. MUSCULOSKELETAL: Denies back pain, joint pain, or myalgia. NEUROLOGIC: Reports headache. Denies numbness, dizziness, or weakness. PSYCHIATRIC: Denies anxiety or depression. [facility] Past Medical History Medical History heart deceleration Morbid obesity with BMI of 45.0-49.9, adult Decreased movement Surgical History Surgical History No pertinent past surgical history Family History Family History Mother Family history non-contributory Social History Social History Smoking packs per day: 0.5 Smoking cigarettes per day: 10.0 Smoking status: Current every day smoker Substance use: former Gender identity (if verbalized by the patient): Female Spiritual care concerns: No Comments GENERAL: Well-appearing, well-nourished, and in no acute distress. HEAD: Normocephalic, atraumatic. EYES: PERRLA and EOMI. ENT: Nares clear, no rhinorrhea or epistaxis. Mucous membranes moist. Oropharynx without tonsillar hypertrophy exudate or other lesions. Bilateral TMs are erythematous and bulging. NECK: Supple. No adenopathy or masses. No carotid bruits or JVD CHEST: Clear to auscultation. No respiratory distress. No wheezes rales or rhonchi HEART: Regular rate and rhythm. No murmur heard. Normal peripheral pulses. ABDOMEN: Soft, nontender, nondistended, normal active bowel sounds. EXTREMITIES: Normal range of motion. No edema. SKIN: Warm, dry, no rash. NEURO: No focal deficits. Alert and oriented x3. PSYCH: Normal mood and affect. Course Course Emergency Course: This is a 29-year-old female who presented for evaluation of sick symptoms for last month. She meets criteria for bacterial sinusitis based upon duration of time in which she has been symptomatic. She also has evidence of otitis media on exam. Will discharge with Augmentin. Increase hydration. [id number] agents for symptom management. Advised on smoking cessation. Go to the ER for worsening symptoms. Patient in agreement with plan of care. Level of Care: Express Care Visit Vital Signs Vital signs: Vital Signs Temperature 36.4 C L 08/20/25 10:47 Pulse Rate 61 08/20/25 10:47 Respiratory Rate 18 08/20/25 10:47 Blood Pressure 112/48 L 08/20/25 10:47 Pulse Oximetry 100 08/20/25 10:47 Oxygen Delivery Room Air 08/20/25 10:47 Temperature 36.4 C L 08/20/25 10:47 Pulse Rate 61 08/20/25 10:47 Respiratory Rate 18 08/20/25 10:47 Blood Pressure 112/48 L 08/20/25 10:47 Pulse Oximetry 100 08/20/25 10:47 Oxygen Delivery Room Air 08/20/25 10:47 Medical Decision Making Vital Signs Vital Signs: Vital Signs Temperature 36.4 C L 08/20/25 10:47 Pulse Rate 61 08/20/25 10:47 Respiratory Rate 18 08/20/25 10:47 Blood Pressure 112/48 L 08/20/25 10:47 Pulse Oximetry 100 08/20/25 10:47 Oxygen Delivery Room Air 08/20/25 10:47 Temperature 36.4 C L 08/20/25 10:47 Pulse Rate 61 08/20/25 10:47 Respiratory Rate 18 08/20/25 10:47 Blood Pressure 112/48 L 08/20/25 10:47 Pulse Oximetry 100 08/20/25 10:47 Oxygen Delivery Room Air 08/20/25 10:47 Discharge Plan Discharge Clinical Impression: Otitis media, Sinusitis Patient Disposition: Home Condition: Stable Instructions: Antibiotic Form, Sinusitis (ED), Ear Infection (ED) Patient Language: Khmer Prescriptions: New amoxicillin-pot clavulanate 875-125 mg tablet 1 tablet PO Q12H Qty: 20 0RF fluconazole 150 mg tablet 150 mg PO ONCE Qty: 1 0RF Rx Instructions: as a single dose No Action norgestimate-ethinyl estradiol [Estarylla] 0.25-0.035 mg tablet Follow-up/Referrals: Magdi Tobias MD [Physician, Family Practice] Time of Disposition: 11:06
--- OUTSIDE RECORDS SUMMARY | 2025-08-20 12:10 | XMS_ITS | Clinical Summary ---
Author Organization [facility] Address [address] [place] [address] Care Team Providers Care Stonemason Helper Name Role Phone Unavailable Primary Care Provider Unavailabl e Source Comments [facility],non-owned Affiliates and Associated Physician Practices is amultiple site organization consisting of ambulatory clinics and hospital sitesin [place], [place], [place] and [place]. This disclosure is being madepursuant to the Care Everywhere program and may not contain all information available regarding this patient. Last updated 18.[facility] Allergies Active Allergy Reactions Criticality Noted Date Comments Cephalexin Urticaria Medium 06/14/2022 Medications * Be aware that medications may not be up to date on this document. Alwaysverify current medications with the patient. Vit-Fe Fumarate-FA ( vitamin) 28-0.8 MG tablet [...] drink = 0.6 oz pur e alcohol) Comments No Sex and Gender Information Value Date Recorded Sex Assigned at Not on file Legal Sex Female 9:16 AM CDT Gender Identity Not on file Sexual Orientation Not on file Last Filed Vital Signs Vital Sign Reading Time Taken Comments Blood Pressure 120/64 06/16/2022 11:05 AM CDT Pulse - - Temperature - - Respiratory Rate - - Oxygen Saturation - - Inhaled Oxygen Concentration - - Weight 128.3 kg (282 lb 12.8 oz) 2021 11:05 AM CDT Height 162.6 cm (5' 4) 06/16/2022 11:0 5 AM CDT Body Mass Index 48.54 06/16/2022 11:05 AM CDT Plan of Treatment Health Maintenance Due Date Last Done Comments HIV SCREENING 2011 HEPATITIS C SCREENING 10/26/2014 DTAP/TDAP/TD VACCINES (1 - Tdap) 2015 HEPATITIS B VACCINE (1 of 3 - 19+ 3-dose series) 2015 PNEUMOCOCCAL VACCINE (1 of 2 - PCV) 2015 PAP SMEAR 2017 HPV VACCINE (1 - 3-dose SCDM series) 2023 DEPRESSION SCREENING 10/17/2024 COVID-19 VACCINE (1 - 2023-2 5 season) 2025 INFLUENZA VACCINE (#1) 2025 ZOSTER VACCINE (1 of 2) 2046 HIB VACCINE Aged Out No longer eligi ble based on patient's age to complete this topic MENINGOCOCCAL (Group B) VACC INE SHARED DECISION-MAKING Aged Out No longer eligibl e based on patient's age to complete this topic MENINGOCOCCAL GROUPS A/C/Y/W VACCINE Aged Out No longer eligible b ased on patient's age to complete this topic [place] [address]
--- OUTSIDE RECORDS SUMMARY | 2025-08-20 12:13 | XMS_ITS | Data Portability ---
Author Organization [facility] Address [address] [place] [address] Care Team Providers Care Automation Sales Manager Name Role Phone [facility] Assessment No assessment recorded. Plan of Treatment Reminders Order Date Submit Date Provider Last Modified By Organization Details Last Modified Time Details Appointments None recorded. Lab streptococc us group B, culture, unspecified specimen 2021 [facility], [address] [place], [address], 11:36:59 Referral None recorded. Procedures None recorded. Surgeries None recorded. Imaging non-stress test 2021 6 Not available 13:56:50 US, obstetric, biophysical profile + non-stress test 2021 JOAQUIN Not available 19:28:59 US, obstetric, follow-up - growth EFW 2021 [email or web address] Not available 15:59:36 non-stress test 2021 [email or web address] Not available 11:04:49 Medication Orders None recorded. Patient TargetsNo targets recorded. Patient Instructions Encounter Date Encounter Id Patient Instructions Last Modified By Organization Details Last Modified Time 09/06/2022 [id number] body mass index: care instructions Not available [...] GROUP B CULTU RE Micro Numbe r: [id number] Test Statu s: Final Speci men [...] the anal sphin cter) . Not Available [facility] [address] , [place], [address], 09/08/2022 11:36:59 09/08/20 22 09/06/2022 US, obste tric, bioph ysica l profi le + non-s tress test No observ ation record ed. [email or web address] Celia [address], [place], [address], 09/11/2022 11:25:43 Result Notes None recorded. 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 3 16:26:46 63751200 Completed 202101/27/2023 Farrah Merino null, [facility] [employer] [facility] IV 3 16:26:48 Gestation period, 36 weeks 50961526 Active 2021 DAMASO Ceron [facility] [place], [address], [facility] 2 11:34:29 Problem Notes None recorded. Procedures Surgical History Date Name Laterality Status Provider Name and Address Organization Details Recorded Time 09/14/2022 NST completed MAXIMINO MOSS DO [address] [place], [address], [facility] [employer] [facility] 09/14/2022 16:38:54 09/06/2022 NST completed DAMASO Ceron [facility] [place], [address], [facility] [facility] 09/08/2022 11:33:05 03/05/2020 Date of Last Pap Smear [facility] 09/06/2022 15:37:46 Imaging Results None recorded. Procedure Notes None recorded. Medical Equipment None Reported. Allergies Allergen ID Allergen Name Allergen Category Reaction Reaction Severity Criticality Documentation Date Start Date Code Code System Note Provider Name and Address Organization Details Recorded Time 492583 cephalexi n medicatio n Not available Not available Not available 09/06/20221 RxNorm Park Hankins [facility] [employer] [facility] IV 2 16:48:25 Medications Name Sig Start Date Stop Date [...] Body mass index (BMI) Body height Systolic And Diastolic Provider Name and Address Organization Details Last Updated DateTime 09/06/2022 072233.0 90752 g 97.6 [degF] 50 kg/m2 162.56 cm 120/68 mm[Hg] Park Hankins [email or web address] IV 16:47:16 Date Recorded Body weight Provider Name an d Address Organization Details Last Updated DateTime 09/14/2022 024303.734917 g MAXIMINO MOSS , DO [facility], [place], [address], [email or web address] IV 09/14/2022 17:09:49 Date Recorded Body height Body mass index (BMI) Body temperature Systolic And Diastolic Provider Name and Address Organization Details Last Updated DateTime 09/14/2022 162.56 cm 51.4 kg/m2 97 [degF] 122/60 mm[Hg] Ting Pantoja [email or web address] IV 09/14/2022 16:43:40 Social History Question Answer Notes LastModified by Organizat ion Details LastModified Time Tobacco Smoking Status Current Every Day Smoker Park Cr taylor, [email or web address] IV 09/06/2022 16:50:45 Are You Blind Or Do You Have [...] Smoke? 1 PPW Information not available 09/06/2022 Sex: Unknown Functional Status Question Answer Note LastModified by Organizat ion Details LastModified Time Do you use any illicit or recreational drugs? No Information not available 09/06/2022 Do you or have you ever used any other forms of tobacco or nicotine? No Information not available 09/06/2022 What is your level of alcohol consumption? None Information not available 09/06/2022 What is your exercise level? None Information not available 09/06/2022 Mental Status None recorded. Family History Relationship Description Onset Age of this Age Resolved Age Notes LastModified by Organization Details LastModified Time Mother Diabetes mellitus [email or web address] Not available 2021 16:49:48 Mother Epilepsy [email or web address] Not available 09/06/2022 16:50:01 Paternal Grandmother Malignant neoplasm of breast [email or web address] Not available 2021 16:50:09 [...] Diagnosis SNOMED-CT Code Diagnosis ICD10 Code Diagnosis IMO Codes Diagnosis Note [id number] DAMASO Ceron [facility] [address] [place] [address] 09/06/2022 15:17:59 09/07/2022 10:34:31 Body mass index 40+ - severely obese 091872159 Z68.43 NST non-reacti ve- BPP 8/8EFW 29.8%tile Gestation period, 36 weeks 83209821 Z3A.36 Routine an tenatal care 374357158 Z34.93 Transfer of care- no records of lab results, US reports, official ANANTH. Records request sent. at 37.2 weeks complicate d by morbid obesity (BMI 50).Antena igor surveillan ce with weekly NSTsPrevio us , no complicati ons.(+) tobacco use [id number] MAXIMINO MOSS DO [facility] h [address] [place] [address] 09/14/2022 16:03:57 09/15/2022 10:28:24 Routine care 928265310 Z34.93 Maternal o besity complicating , childbirth and the puerperium, antepartum 0844097137 07 O99.213 NST: reactive Gestation period, 38 weeks 53729074 Z3A.38 Health Concerns Section Related Observation LastModified by Organization Detai ls LastModified Time None Recorded Concern Status LastModified by Organization Details LastModified Time None Recorded Advance Directives Directive None Recorded Payers Insurance Date Sequence Insurance Name Policy Number Policy Saavedra Covered Member ID Saavedra Member ID Guarantor Name 09/17/2022 1 [facility] Arielle Barlow [id number] Arielle Barlow Notes Date Note Type Note [...] surveillance. NST and US today DAMASO Ceron [address] [place], [address], [employer] 09/08/2022 11:54:48 09/14/2022 text/html _Arielle is here today for a routine OB visit. She is currently at38.3 __weeks gestation. She has no complaints or questions. She is taking vitamins. She has felt movement. She denies the presence of vaginal bleed, leaking fluid, abdominal cramps, nausea, vomiting. There are no identifiable risk factors for pre-term labor. MAXIMINO MOSS DO [address] [place], [address], [email or web address] IV 09/14/2022 22:08:14 OBGyn Episode Ob Episode Information Episode Created Date Number of Fetuses Patient Bloodtype Patient rh Status Prepregnancy Weight lbs Domestic Partner Domestic Partner Phone Father Name Jury Consultant Status 09/06/20 22 1 DELETED Fetus Data First Name Last Name Admitted to NICU Weight (g) Sex Living Outcome Pediatric Complications Fetus ID Race Codes Race Delivery Type [id number] Ananth Calculation Initial Ananth Date Initial Exam [...] Domestic Partner Domestic Partner Phone Father Name Jury Consultant Status 09/06/20 22 1 CLOSED Fetus Data First Name Last Name Admitted to NICU Weight (g) Sex Living Outcome Pediatric Complications Fetus ID Race Codes Race Delivery Type [id number] Problems Problem Notes Problem Name Start Date End Date Resolution Snomed Code Not e Maternal tobacco use 980974891 Morbid obesity 894866615 Group B Streptococcus carrier 7260952755124 Ananth Calculation Initial Ananth Date Initial Exam [...] Gestation 0 [email or web address] 09/06/2022 09/25/20 22 0 Pre- Flowsheet Flowsheet Date 09/06/2022 López Score Blood Edema Fundus Height Fundus Units Glucose Ketones Leukocytes Nitrite Labor Signs Protein Cervic Dilation Cervic Effacement Cervic Station none none Type Weight in lbs Pre/Post Dialysis Refused With clothes 291.638805023215 BP Diastolic BP Location Tested BP Systolic BP Type 68 L arm 120 sitting Fetus Heart Rate Present A 130 Present Fetus Movement A Yes Comments Transfer of care- records re quest sentMorbid obesity- NST/BPP today- 8/8EFW 29.8%tile Flowsheet Date 09/14/2022 López Score Blood Edema Fundus Height Fundus Units Glucose Ketones Leukocytes Nitrite Labor Signs Protein Cervic Dilation Cervic Effacement Cervic Station none Type Weight in lbs Pre/Post Dialysis Refused With clothes 299.857955100932 BP Diastolic BP Location Tested BP Systolic [...]
== END 2025-08-20 11:08 | disposition home or self-care (01) ==
PROVIDERS: Emergency Provider Nurse Practitioner
DX: H66.90 Otitis media, unspecified, unspecified ear (principal); J32.9 Chronic sinusitis, unspecified; F17.210 Nicotine dependence, cigarettes, uncomplicated
CPT/HCPCS: 99213; G0463

== ENCOUNTER 2025-10-14 08:57 | Emergency (ER) | payer OTHER, SELFPAY ==
--- OUTSIDE RECORDS SUMMARY | 2025-10-14 09:06 | XMS_ITS | Clinical Summary ---
Author Organization [facility] Address [address] [place] [address] Care Team Providers Care Preschool Assistant Name Role Phone Unavailable Primary Care Provider Unavailabl e Source Comments [facility],non-owned Affiliates and Associated Physician Practices is amultiple site organization consisting of ambulatory clinics and hospital sitesin [place], [place], [place] and [place]. This disclosure is being madepursuant to the Care Everywhere program and may not contain all information available regarding this patient. Last updated 18.[facility] Allergies Active Allergy Reactions Criticality Noted Date [...] DEPRESSION SCREENING 10/17/2024 COVID-19 VACCINE (1 - 2024-2 6 season) 2025 INFLUENZA VACCINE (#1) 2025 ZOSTER [...] patient's age to complete this topic [place] [address] [place] [address]
--- OUTSIDE RECORDS SUMMARY | 2025-10-14 09:06 | XMS_ITS | Clinical Summary ---
Author Organization 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 Name Role Phone None, Provider MD Primary [...] Comments Blood Pressure 123/73 08/31/2022 3:43 PM DIRECTOR CONTENT MARKETING Pulse 93 08/31/2022 3:59 PM DIRECTOR CONTENT MARKETING Temperature 36.8 C (98.2 F) 08/31/2022 3:45 PM DIRECTOR CONTENT MARKETING Respiratory Rate 18 08/31/2022 3:45 PM DIRECTOR CONTENT MARKETING Oxygen Saturation 96% 04/05/2022 10:39 AM CDT Inhaled Oxygen Concentration - - Weight 132 kg (291 lb) 08/31/2022 3:39 PM DIRECTOR CONTENT MARKETING Height 162.6 cm (5' 4) 08/31/2022 3:39 PM DIRECTOR CONTENT MARKETING Body Mass Index 49.95 08/31/2022 3:39 PM DIRECTOR CONTENT MARKETING Plan of Treatment Health Maintenance Due Date Last Done Comments Cervical Cancer Screening Pap Smear (Age 21 to 29) Every 3 Years 1996 Cervical Cancer Screening 1996 Hepatitis B Vaccines (3 of 3 - 3-dose series) 04/29/1997 02/01/1997, 1996 Annual Physical 1999 Hepatitis C 2014 Pneumococcal Vaccine: Pediatrics (0 to 5 Years) and At-Risk Patients (6 to 49 Years) (1 of 2 - PCV) 2015 DTaP, Tdap and Td Vaccines (5 - Td or Tdap) 12/30/2020 12/30/2010, 05/06/1997, 02/27/1997, Additional history exists HPV Vaccines (1 - 3-dose SCDM series) 2023 COVID-19 Vaccine ( season) 2025 Influenza Adult (#1) 2025 08/15/2020 Meningococcal Vaccine Completed 03/13/2015, 011 Hepatitis A Vaccines Aged Out No long er eligible based on patient's age to complete this topic Meningococcal B Vaccine Aged Out No l onger eligible based on patient's age to complete this topic RSV Immunizations Under 20 Months Aged Out No longer eligible based on patient's age to [place] [address] MEDICAID [facility] Care Teams Freight Car Loader Relationship Specialty Start Date End Date None, Provider, PCP - General 04/05/22
[2025-10-14 09:07] VITALS: BP 116/47; PULSE 63; RESP 16; TEMP 36.3; O2SAT 99
--- NOTE | 2025-10-14 09:41 | ED_ITS ---
HPI - Skin/Abscess/Foreign Bdy General Chief complaint: Skin/Abscess/Foreign Body Stated complaint: RT Under Arm cyst pain Time Seen by Provider: 10/14/25 09:06 Source: patient and RN notes reviewed Mode of arrival: ambulatory Limitations: no limitations History of Present Illness HPI narrative: 29-year-old female patient presents today with a bump to her right axilla x2 weeks, painful over the last couple of days. States she has been applying warm compresses and Boil-eeze and has squeezed it with a small amount of drainage resulting, which has not provided relief. Related Data Home Medications ?Medication ?Instructions ?Recorded ?Confirmed ?Last Taken ?Type norgestimate 0.25 mg-ethinyl tablet 08/20/25 Unknown History estradiol 0.035 mg tablet (Estarylla) Allergies Allergy/AdvReac Type Severity Reaction Status Date / Time cephalexin AdvReac Mild hives Verified 10/14/25 09:18 [facility] Past Medical History Medical History (Updated 10/14/25 @ 10:01 by Malaika Turner APRN, ELIOT) heart deceleration Morbid obesity with BMI of 45.0-49.9, adult Decreased movement Surgical History Surgical History No pertinent past surgical history Family History Family History Mother Family history non-contributory Social History Social History Smoking packs per day: 0.5 Smoking cigarettes per day: 10.0 Smoking status: Current every day smoker Substance use: former Gender identity (if verbalized by the patient): Female Spiritual care concerns: No Exam Narrative: GENERAL: Well-appearing, well-nourished, and in no acute distress. HEAD: Normocephalic, atraumatic. EYES: EOMI. No redness or drainage. Conjunctivae normal. ENT: Mucous membranes pink and moist. NECK: Normal AROM. CHEST: No respiratory distress. EXTREMITIES: Normal range of motion. No edema. SKIN: Warm, dry. Capillary refill normal. Normal skin turgor. 2.5 cm round area of erythema, induration, and fluctuance to the right axilla. Tender to palpation. No active drainage. NEURO: No focal deficits. Alert and oriented x3. Gait steady. PSYCH: Normal affect. No signs of depression or anxiety. Course Course Level of Care: Express Care Visit Vital Signs Vital signs: Vital Signs Temperature 97.3 F L 10/14/25 09:07 Pulse Rate 63 10/14/25 09:07 Respiratory Rate 16 10/14/25 09:07 Blood Pressure 116/47 L 10/14/25 09:07 Pulse Oximetry 99 10/14/25 09:07 Oxygen Delivery Room Air 10/14/25 09:07 Temperature 97.3 F L 10/14/25 09:07 Pulse Rate 63 10/14/25 09:07 Respiratory Rate 16 10/14/25 09:07 Blood Pressure 116/47 L 10/14/25 09:07 Pulse Oximetry 99 10/14/25 09:07 Oxygen Delivery Room Air 10/14/25 09:07 Reviewed Procedures Abscess I/D right axilla: Date of Incision: 10/14/25 Time of Incision: 09:45 Side (if applicable): right Local Anesthetic: lidocaine 1% and with epi Amount of anesthesia used (mL): 2 Technique: incised with #11 blade Amount of fluid expressed (mL): 2 Irrigation: Yes Packing used?: plain I&D Results: Pus and Blood Abcess I&D Additional Comments: Dressed with large Band-Aid MDM MDM Narrative Medical decision making narrative: 29-year-old female patient presents today with a bump to her right axilla x2 weeks, painful over the last couple of days. States she has been applying warm compresses and Boil-eeze and has squeezed it with a small amount of drainage resulting, which has not provided relief. Approximately 2.5 cm round area of erythema, induration, and fluctuance to the right axilla that is tender to palpation. The performed with copious purulent discharge resulting. See procedure note. Patient will be started on Bactrim due to history of abscesses in the past. Patient agrees with plan. Vital signs stable. Anticipatory guidance given. Differential Diagnosis Differential Diagnosis: Abscess, hidradenitis suppurativa, cellulitis, lymphadenopathy Critical Care Time Critical Care Time Critical Care Time: No Discharge Plan Discharge Clinical Impression: Abscess of axilla, right Patient Disposition: Home Condition: Stable Instructions: Antibiotic Form, Abscess (ED), Abscess Incision and Drainage (DC) Additional Instructions: Your abscess has been lanced and drained. Please take the Bactrim as prescribed until gone. Keep the packing dry and intact for the next 48 hours, then remove at home and keep covered until scabbed over. Wash daily with soap and water. Do not use peroxide or alcohol. Do not apply antibiotic ointment to the area. Take Tylenol or ibuprofen if needed for pain. Follow-up with your PCP with any additional concerns. Go to the ER immediately if symptoms worsen. Patient Language: Yemeni Prescriptions: New sulfamethoxazole-trimethoprim [Bactrim DS] 800-160 mg tablet 1 tablet PO Q12H 10 Days Qty: 20 0RF No Action norgestimate-ethinyl estradiol [Estarylla] 0.25-0.035 mg tablet Follow-up/Referrals: PHYSICIAN,WAREHOUSE DRIVER [Primary Care Provider, Internal Medicine] Stand Alone Forms: Work/School Release IP Time of Disposition: 10:01
== END 2025-10-14 10:04 | disposition home or self-care (01) ==
PROVIDERS: Emergency Provider Nurse Practitioner
DX: L02.411 Cutaneous abscess of right axilla (principal)
CPT/HCPCS: 99213; G0463; J2004